=== PATIENT | male | born 1940 | race Caucasian/White ===

== ENCOUNTER 2016-09-17 19:13 | Emergency (ER) | payer MEDICARE ==
[2016-09-17 19:25] VITALS: BP 176/88
[2016-09-17] MEDS ORDERED: predniSONE TAB* 20 MG PO ONE (20:03)
--- NOTE | 2016-09-17 20:09 | UC ---
Knee Pain HPI - HPI Summary HPI Summary: 2 day history of acute pain and swelling with mild erythema of the left knee. He has a long history of gout, and stopped his Uloric about 4 months ago due to cost. Labs last week show persistent elevated uric acid. He does have a past hx of having gout in his knees. He has taken indomethacin 100mg already today. He has colchicine but it is very hard on his gut. He has a meeting pending with Dr. Grewal to discuss management. He is here hoping for pain medications, but he cannot take narcotics, which make him vomit. - History of Current Complaint Chief Complaint: UCLowerExtremity Stated Complaint: left knee complaint Time Seen by Provider: 09/17/16 19:42 Hx Obtained From: Patient Onset/Duration: Sudden Onset, Lasting Days - 2 Severity Initially: Moderate Severity Currently: Severe Pain Intensity: 8 Pain Scale Used: 0-10 Numeric Character: Aching, Stiffness Aggravating Factor(s): Movement, Weight Bearing Alleviating Factor(s): Rest Associated Signs And Symptoms: Positive: Swelling, Redness Able to Bear Weight: Yes - Risk Factors Septic Arthritis Risk Factor: Extremes of Age Gout Risk Factor: Age ^ 41 - Allergies/Home Medications Allergies/Adverse Reactions: Allergies Allergy/AdvReac Type Severity Reaction Status Date / Time Magnesium Salicylate Allergy Swelling Verified 09/17/16 19:25 [From Ms] Shellfish Allergy Allergy See Comment Verified 09/17/16 19:25 Home Medications: Home Medications Indomethacin CAP* [Indocin CAP*] 100 mg PO ONCE PRN 09/17/16 [History Confirmed 09/17/16] PMH/Surg Hx/FS Hx/Imm Hx Cardiovascular History Of: Reports: Cardiac Disorders - ID, Hypertension Respiratory History Of: Reports: Asthma - Surgical History Surgical History: Yes Surgery Procedure, Year, and Place: right knee - Family History Known Family History: Positive: Cardiac Disease - father of heart disease, Other - father had gout - Social History Occupation: Employed Full-time - [place] Lives: Alone Alcohol Use: Occasionally Substance Use Type: None Smoking Status (MU): Never Smoked Tobacco Review of Systems Constitutional: Negative Skin: Negative Eyes: Negative ENT: Negative Respiratory: Negative Cardiovascular: Negative Gastrointestinal: Negative Genitourinary: Negative Motor: Negative Neurovascular: Negative Musculoskeletal: Arthralgia Neurological: Negative Psychological: Negative All Other Systems Reviewed And Are Negative: Yes Physical Exam Triage Information Reviewed: Yes Appearance: Well-Appearing, Pain Distress - moderate to severe, Thin Vital Signs: Initial Vital Signs Temp 99.2 F 09/17/16 19:17 Pulse 85 09/17/16 19:17 Resp 14 09/17/16 19:17 BP 176/88 09/17/16 19:17 Pulse Ox 98 09/17/16 19:17 Vital Signs Reviewed: Yes ENT Exam: Normal Respiratory: Positive: Lungs clear, Normal breath sounds Cardiovascular: Positive: RRR, No Murmur Musculoskeletal: Positive: Strength Intact, ROM Limited @ - left knee, can flex to 45 degrees, pain beyond., Other: - left knee with warmth, erythema, swelling. Erythema extends over the surface of the knee. Neurological Exam: Normal Neurological: Positive: Alert, Muscle Tone Normal Psychological Exam: Normal Knee Pain Course/Dx - Course Course Of Treatment: prednisone to decrease inflammation. - Differential Dx/Diagnosis Differential Diagnosis/HQI/PQRI: Cellulitis, Gout Provider Diagnoses: acute gout Discharge - Discharge Plan Condition: Stable Disposition: HOME Patient Education Materials: Gout (ED) Additional Instructions: Follow up with Dr. Grewal early next week to re-check your blood pressure and discuss management of gout. If the prednisone is helpful, you could continue with the prednisone which you have at home, taking 40mg on 09/18 and 09/19, 30mg on 09/20 and 09/21, 20 mg on 09/22 and 09/23, 10 mg on 09/24 and 09/25, and then stop. You could use over the counter omeprazole 20mg twice daily, taking it 20 minutes before you eat. This would help to protect your stomach against the effects of the indomethacin.
== END 2016-09-17 20:42 | disposition home or self-care (01) ==
LOC: UCCORT 19:13
DX: M10.062 Idiopathic gout, left knee (principal); I21.3 ST elevation (STEMI) myocardial infarction of unspecified site; I10 Essential (primary) hypertension; J45.909 Unspecified asthma, uncomplicated
CPT/HCPCS: 99212; G0463; J7512

== ENCOUNTER 2017-09-22 18:29 | Emergency (ER) | payer MEDICARE ==
--- OUTSIDE RECORDS SUMMARY | 2017-09-22 18:50 | XMS REPORT ---
:1940 External Reference #:[id number] Author Organization 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 Payers Type Date Identification Numbers Payment Provider Subscriber Commercial Effective: Policy Number: BCBS Medicare Moreno Zavala 2012 [id number] Group Number: [id number] [address] [address] PayID: [id number] [place] [address] Problems Date Description Provider Status Onset: 03/12/2012 Coronary arteriosclerosis Vik Grewal DO Active Onset: 06/13/2011 Benign prostatic hypertrophy without Vik Grewal DO Active outflow obstruction Onset: 05/31/2010 Gout Vik Grewal DO Active Onset: 05/31/2010 Mixed hyperlipidemia Vik Grewal DO Active Onset: 04/21/2010 Benign essential hypertension Vik Grewal DO Active Onset: 08/22/2014 Pure hypercholesterolemia Vik Grewal DO Active Onset: 08/31/2015 Essential hypertension Vik Grewal DO Active Onset: 08/31/2015 Athscl heart disease of [place] coronary Vik Grewal DO Active artery w/o ang pctrs Family History Date Family Member(s) Problem(s) Comments Father CAD Father [place] Father MVA Age 52 Mother CVA Age 81 Social History Type Date Description Comments Marital Status Lives With Alone Occupation [employer] RIGHT-handed Cigarette Use Never Smoked Cigarettes ETOH Use Occasionally consumes alcohol Smoking Patient has never smoked Daily Caffeine Consumes on average 1 cup of coffee per day Allergies, Adverse Reactions, Alerts Date Description Reaction Status Severity Comments 10/05/2009 Shellfish-Derived Products active 10/05/2009 MSG active 09/04/2017 Joe Inhibitors active Moderate cough 09/18/2017 Rocephin active swelling 09/18/2017 Norvasc active tingling mouth & tongue Medications Medication Date Status Form Strength Qnty SIG Indications Ordering Provider Doxycycline 09/18 Hx Capsules 100mg 20cap 1 by mouth Leighton Hyclate s twice a MD Mahnaz - day 09/20 Probenecid 09/04 Active Tablets 500mg 60tab 1 po bid M10.9 Leighton s MD Mahnaz Colchicine 09/04 Active Capsules 0.6mg 2 caps by M10.9 Leighton mouth x 1 MD Mahnaz dose, then 1 by mouth 1 hour later. repeat as needed, but no more frequently than every 4 days Aspirin Low Dose 09/11 Active Chewtabs 81mg 1 po qd I25.10 Carmina DO Vik Pravastatin Active Tablets 20mg 1 by mouth E78.2 Brown, Sodium /0000 every day Crystal BEAULIEU Symbicort Active Aerosol 160-4.5mc inhale two J45.40 Unknown /0000 g/Act puffs by mouth twice a day rinse mouth after use Proair HFA Active Aerosol 108(90Bas inhale 2 J45.40 Unknown /0000 e) puffs by mcg/Act mouth 4 times a day for 10-14 days Mometasone Active Suspension 50mcg/Act 2 sprays J30.9 Unknown Furoate /0000 each nostril daily as needed Metoprolol Active Tablets ER 25mg 1 by mouth Unknown Succinate ER /0000 24HR every day Valsartan-Hydroch 09/18 Hx Tablets 160-12.5m 30tab 1 by mouth Leighton lorothiazide /2017 g s every day MD Mahnaz - 09/18 Uloric 09/18 Hx Tablets 40mg 1 po daily M10.9 Leighton MD Mahnaz - 09/18 Hydrochlorothiazi 09/04 Hx Tablets 25mg 30tab 1 by mouth I10 Huynh s every day MD Mahnaz - 09/18 R60.9 Cephalexin 09/04/2017 Hx Capsules 500mg 30caps 1 by mouth L03.115 Leighton, - three MD Mahnaz 09/18/2017 times a day x 10 days Hydrochlorothiazide 08/14/2017 Hx Tablets 12.5mg 30tabs 1 by mouth I10 Leighton, - every day MD Mahnaz 09/04/2017 Probenecid 09/19/2016 Hx Tablets 500mg 45tabs take 1 1/2 M10.9 Leighton, - tablet by MD Mahnaz 09/04/2017 mouth once daily Colcrys 07/10/2015 Hx Tablets 0.6mg 30tabs 1 PO tid X M77.12 Carmina, - 10 Days Vik 07/27/2015 DO Naproxen Sodium 06/15/2015 Hx Tablets 550mg 60tabs take one M22.41 Carmina, - tablet by Vik, 09/05/2016 mouth DO twice a day with food Indomethacin 05/12/2015 Hx Capsules 50mg 30caps take one M10.9 Digiovann - capsule by billy, 04/27/2017 mouth Antonieta, three HAND ASSEMBLER times a day with food as needed for pain Uloric 03/31/2015 Hx Tablets 40mg 90tabs Take One M10.9 Carmina, - Tablet By Vik, 09/19/2016 Mouth DO Every Day Augmentin 09/22/2014 Hx Tablets 500-12 20tabs 1 by mouth 681.11 Carmina, - 5mg twice a Vik 12/29/2014 day DO Flonase 04/14/2014 Hx Suspension 50mcg/ 1units 1 spray Digiovann - Act per a, 07/10/2014 nostril Antonieta, every day HAND ASSEMBLER regularly Flonase 04/14/2014 Hx Suspension 50mcg/ 1units 1 spray Digiovann - Act per a, 12/29/2014 nostril Antonieta, every day HAND ASSEMBLER regularly Viagra 06/13/2012 Hx Tablets 50mg 10tabs 1 po q d Carmina, - prn Vik 09/05/2016 DO Toprol XL Hx Tablets ER 25mg 45tabs 1 po qd I10 Kevin, - 24HR Crystal BEAULIEU 04/27/2017 I25.10 Crestor - Hx Tablets 5mg 30tabs 1 po qd Rodriguez, 08/25/2014 MD Lance Diovan HCT - Hx Tablets 160-12 90tabs 1 po qd Rafael Soriano 05/12/2015 .5 Symbicort - Hx Aerosol 160-4. 2 puffs by Unknown 05/12/2015 5mcg/A mouth bid. ct rinse mouth out after each use Ventolin HFA - Hx Aerosol 108(90 2 puffs by Unknown 05/12/2015 Base) mouth mcg/Ac every 4 t hours as needed Nasonex - Hx Suspension 50mcg/ 2 sprays Unknown 05/12/2015 Act each nostril every day Xyzal - Hx Tablets 5mg 1 by mouth Unknown 05/12/2015 every day Levocetirizine - Hx Tablets 5mg 1 PO Q D J30 Unknown Dihydrochloride 04/27/2017 .9 Valsartan-Hydrochlo - Hx Tablets 160-12 1 by mouth I10 Unknown rothiazide 08/14/2017 .5mg every day Medications Administered in Office Medication Date Status Form Strength Qnty SIG Indications Ordering Provider Depo Medrol 80 Administered Injection Carmina, MG 016 DO Vik Immunizations CPT Code Status Date Vaccine Reaction Lot # [id number] Given 09/05/2016 Prevnar 13 Pneumococal Im inj completed, Pt [id number] Conjugate Vaccine tolerated well 86580 Refused 07/08/2013 Pneumococcal 23 Immunization Adult Or Immunosuppressed Patient [id number] Refused 03/12/2012 Afluria Or Fluvirin Flu Vac DECLINES FLU VACCINE. Intramuscular Vital Signs Date Vital Result Comment 09/18/2017 Weight 128.00 lb Heart Rate 76 /min BP Systolic 130 mmHg BP Diastolic 72 mmHg Respiratory Rate 18 /min Height 61 inches 5'1" (09/04/17 BMI (Body Mass Index) 24.2 kg/m2 09/04/2017 Body Temperature 98.5 F Weight 134.00 lb Heart Rate 76 /min BP Systolic 120 mmHg BP Diastolic 60 mmHg Respiratory Rate 18 /min Height 61 inches 5'1" (09/04/17 BMI (Body Mass Index) 25.3 kg/m2 08/14/2017 Body Temperature 97.6 F Weight 132.00 lb Heart Rate 64 /min BP Systolic 130 mmHg BP Diastolic 70 mmHg Respiratory Rate 18 /min Height 61 inches 5'1" (09/05/16) O2 % BldC Oximetry 100 % BMI (Body Mass Index) 24.9 kg/m2 04/27/2017 Weight 131.00 lb Heart Rate 76 /min BP Systolic 102 mmHg BP Diastolic 70 mmHg Respiratory Rate 18 /min Height 61 inches 5'1" (09/05/16) BMI (Body Mass Index) 24.7 kg/m2 03/27/2017 Weight 132.00 lb Heart Rate 76 /min BP Systolic 102 mmHg BP Diastolic 60 mmHg Respiratory Rate 18 /min Height 61 inches 5'1" (09/05/16) BMI (Body Mass Index) 24.9 kg/m2 09/26/2016 Weight 133.00 lb Heart Rate 76 /min BP Systolic 110 mmHg BP Diastolic 74 mmHg Respiratory Rate 16 /min Height 61 inches 5'1" (09/05/16) BMI (Body Mass Index) 25.1 kg/m2 09/05/2016 Weight 131.50 lb Heart Rate 72 /min BP Systolic 130 mmHg BP Diastolic 80 mmHg BP Systolic Recheck 130 mmHg BP Diastolic Recheck 80 mmHg Respiratory Rate 18 /min Height 61 inches 5'1" (09/05/16) BMI (Body Mass Index) 24.8 kg/m2 05/02/2016 Body Temperature 97.8 F Weight 130.00 lb Heart Rate 72 /min BP Systolic 110 mmHg BP Diastolic 70 mmHg Respiratory Rate 17 /min Height 61.0 inches 5'1" 10/23/15 BMI (Body Mass Index) 24.6 kg/m2 10/23/2015 Weight 133.00 lb Heart Rate 78 /min BP Systolic 138 mmHg BP Diastolic 70 mmHg Respiratory Rate 18 /min 08/31/2015 Weight 130.50 lb Heart Rate 66 /min 68 Reg BP Systolic 110 mmHg BP Diastolic 62 mmHg BP Systolic Recheck 120 mmHg BP Diastolic Recheck 70 mmHg Respiratory Rate 18 /min Height 60.75 inches 5'0.75" BMI (Body Mass Index) 24.9 kg/m2 07/27/2015 Weight 136.00 lb Heart Rate 72 /min BP Systolic 130 mmHg BP Diastolic 80 mmHg Respiratory Rate 18 /min Height 61 inches 5'1" (06/27) BMI (Body Mass Index) 25.7 kg/m2 07/10/2015 Weight 136.38 lb Heart Rate 78 /min BP Systolic 132 mmHg BP Diastolic 86 mmHg Respiratory Rate 18 /min Height 61 inches 5'1" BMI (Body Mass Index) 25.8 kg/m2 06/15/2015 Weight 133.00 lb Heart Rate 66 /min BP Systolic 130 mmHg BP Diastolic 70 mmHg Respiratory Rate 18 /min Height 61 inches 5'1" BMI (Body Mass Index) 25.1 kg/m2 05/12/2015 Weight 134.00 lb Heart Rate 66 /min BP Systolic 130 mmHg BP Diastolic 70 mmHg Respiratory Rate 18 /min 03/31/2015 Weight 152.00 lb Heart Rate 66 /min BP Systolic 124 mmHg BP Diastolic 80 mmHg Respiratory Rate 18 /min Height 61 inches 5'1" BMI (Body Mass Index) 28.7 kg/m2 03/09/2015 Body Temperature 98.1 F Weight 128.00 lb Heart Rate 78 /min BP Systolic 140 mmHg BP Diastolic 80 mmHg Respiratory Rate 18 /min Height 61 inches 5'1" BMI (Body Mass Index) 24.2 kg/m2 09/22/2014 Weight 134.00 lb Heart Rate 72 /min BP Systolic 154 mmHg BP Diastolic 90 mmHg Respiratory Rate 18 /min Height 61 inches 5'1" BMI (Body Mass Index) 25.3 kg/m2 08/25/2014 Weight 137.31 lb Heart Rate 76 /min 72 Reg BP Systolic 136 mmHg BP Diastolic 78 mmHg BP Systolic Recheck 140 mmHg BP Diastolic Recheck 80 mmHg Respiratory Rate 18 /min Height 61 inches 5'1" BMI (Body Mass Index) 25.9 kg/m2 04/14/2014 Body Temperature 97.4 F Weight 130.00 lb Heart Rate 66 /min BP Systolic 158 mmHg BP Diastolic 88 mmHg Respiratory Rate 18 /min Height 61 inches 5'1" O2 % BldC Oximetry 98 % 01/06/2014 BP Systolic 124 mmHg BP Diastolic 80 mmHg 01/06/2014 Body Temperature 97.9 F Weight 132.00 lb Heart Rate 72 /min 72 Reg BP Systolic 130 mmHg BP Diastolic 82 mmHg Respiratory Rate 18 /min Height 61 inches 5'1" 12/09/2013 Weight 130.00 lb Heart Rate 72 /min BP Systolic 118 mmHg BP Diastolic 70 mmHg Respiratory Rate 18 /min Height 61 inches 5'1" O2 % BldC Oximetry 95 % Ra 07/08/2013 BP Systolic 132 mmHg BP Diastolic 80 mmHg 07/08/2013 Weight 129.00 lb Heart Rate 66 /min 68 Reg BP Systolic 132 mmHg BP Diastolic 80 mmHg Respiratory Rate 18 /min Height 61.25 inches 5'1.25" 12/06/2012 Weight 135.00 lb Heart Rate 80 /min BP Systolic 140 mmHg BP Diastolic 86 mmHg Respiratory Rate 18 /min Height 134 inches 11'2" 11/26/2012 Heart Rate 72 /min BP Systolic 120 mmHg BP Diastolic 80 mmHg Respiratory Rate 18 /min Height 134 inches 11'2" 10/29/2012 BP Systolic 132 mmHg BP Diastolic 80 mmHg 10/29/2012 Weight 133.00 lb Heart Rate 66 /min BP Systolic 132 mmHg BP Diastolic 80 mmHg Respiratory Rate 18 /min Height 61.25 inches 5'1.25" 05/15/2012 Body Temperature 97.5 F Weight 132.56 lb Heart Rate 92 /min BP Systolic 124 mmHg BP Diastolic 88 mmHg Respiratory Rate 16 /min 03/12/2012 BP Systolic 134 mmHg BP Diastolic 82 mmHg 03/12/2012 Weight 134.00 lb Heart Rate 86 /min 72 Reg BP Systolic 136 mmHg BP Diastolic 82 mmHg Respiratory Rate 24 /min O2 % BldC Oximetry 96 % Ra 09/12/2011 BP Systolic 130 mmHg BP Diastolic 90 mmHg 09/12/2011 Weight 133.00 lb Heart Rate 72 /min 72 Reg BP Systolic 130 mmHg BP Diastolic 90 mmHg Respiratory Rate 24 /min 06/13/2011 BP Systolic 140 mmHg BP Diastolic 98 mmHg 06/13/2011 Weight 135.00 lb Heart Rate 66 /min 72 Reg BP Systolic 132 mmHg BP Diastolic 86 mmHg Respiratory Rate 18 /min Height 61 inches 5'1" (Done On 09/27/10) 02/15/2011 BP Systolic 162 mmHg BP Diastolic 96 mmHg 02/15/2011 Body Temperature 97.1 F Weight 133.50 lb Heart Rate 60 /min BP Systolic 160 mmHg BP Diastolic 92 mmHg Respiratory Rate 17 /min Height 61 inches 5'1" (Done On 09/27/10) O2 % BldC Oximetry 98 % Ra 01/31/2011 BP Systolic 154 mmHg BP Diastolic 78 mmHg 01/31/2011 Body Temperature 99.8 F Weight 130.00 lb Heart Rate 87 /min BP Systolic 160 mmHg BP Diastolic 88 mmHg Respiratory Rate 18 /min Height 61 inches 5'1" (Done On 09/27/10) O2 % BldC Oximetry 99 % 11/05/2010 Body Temperature 97.4 F Weight 131.00 lb Heart Rate 72 /min BP Systolic 120 mmHg BP Diastolic 74 mmHg Respiratory Rate 18 /min Height 61 inches 5'1" (Done On 09/27/10) O2 % BldC Oximetry 98 % 10/08/2010 Body Temperature 97.6 F Weight 132.00 lb Heart Rate 84 /min BP Systolic 138 mmHg BP Diastolic 82 mmHg Respiratory Rate 18 /min 09/27/2010 BP Systolic 162 mmHg BP Diastolic 90 mmHg 09/27/2010 Body Temperature 97.3 F Weight 133.00 lb Heart Rate 74 /min BP Systolic 170 mmHg BP Diastolic 90 mmHg Respiratory Rate 18 /min Height 61 inches 5'1" O2 % BldC Oximetry 98 % Ra 09/01/2010 Body Temperature 97.6 F Weight 137.00 lb Heart Rate 88 /min BP Systolic 164 mmHg BP Diastolic 80 mmHg 05/31/2010 BP Systolic 122 mmHg BP Diastolic 68 mmHg 05/31/2010 Weight 130.00 lb Heart Rate 84 /min BP Systolic 130 mmHg BP Diastolic 72 mmHg Respiratory Rate 18 /min 04/21/2010 BP Systolic 160 mmHg BP Diastolic 86 mmHg 04/21/2010 Weight 131.00 lb Heart Rate 86 /min BP Systolic 158 mmHg BP Diastolic 84 mmHg Respiratory Rate 18 /min 02/26/2010 Weight 131.00 lb Heart Rate 78 /min BP Systolic 162 mmHg BP Diastolic 80 mmHg Respiratory Rate 24 /min 11/16/2009 Weight 127.00 lb Heart Rate 67 /min BP Systolic 170 mmHg BP Diastolic 90 mmHg Respiratory Rate 16 /min 10/05/2009 Weight 130.00 lb Heart Rate 72 /min BP Systolic 148 mmHg BP Diastolic 72 mmHg Respiratory Rate 24 /min Results Test Date Test Result H/L Range Note Laboratory test finding 09/10/2017 Vancomycin,Trough 4.7 ug/mL Low 15.0- 20.0 1, 2 CBS W/Automated Diff 09/10/2017 White Blood Count 13.7 K/uL High 3.4-10.5 1 Red Blood Count 4.81 M/uL 4.20-5.80 1 Hemoglobin 14.8 gm/dL 12.8-17.0 1 Hematocrit 42.5 % 38.0-48.0 1 Mean Cell Volume 88.4 fl 80.0-96.0 1 Mean Corpuscular HGB 30.8 pg 27.0-33.0 1 Mean Corpuscular HGB Conc 34.8 g/dL 31.7-36.0 1 Platelet Count 194 K/uL 155-360 1 Red Cell Distri Width SD 42.6 fl 36-51 1 Red Cell Distri Width %CV 13.5 % 11.6-15.8 1 Mean Platelet Volume 11.2 fL High 6.6-10.6 1 Neut% 74.5 % High 33.0-73.0 1 Lymph % 15.8 % Low 20.0-42.0 1 [place] % 9.6 % 0.0-10.0 1 Eo% 0.1 % 0.0-6.6 1 Bas% 0.0 % 0.0-1.1 1 Neut# 10.19 K/uL High 1.8-7.0 1 Lymph # 2.16 K/uL 1.0-4.0 1 [place] # 1.31 K/uL High 0.0-0.8 1 Eos # 0.02 K/uL 0.0-0.5 1 Baso # 0.00 K/uL 0.0-0.1 1 Basic Metabolic Panel 09/10/2017 Glucose 89 mg/dL 74-106 1 BUN 35 mg/dL High 7-18 1 Creatinine 1.3 mg/dL 0.6-1.3 1 Glom Filtration Rate, Estimate 57 mL/min >60 1 If >60 mL/min >60 1, 3 BUN/Creat 26.9 ratio 1 Sodium 141 mmol/L 136-145 1 Potassium 3.4 mmol/L Low 3.5-5.1 1 Chloride 106 mmol/L 98-107 1 Carbon Dioxide 25 mmol/L 21-32 1 Anion Gap 10 mEq/L 8-16 1 Calcium 8.8 mg/dL 8.5-10.1 1 Basic Metabolic Panel 09/09/2017 Glucose 124 mg/dL High 74-106 1 BUN 33 mg/dL High 7-18 1 Creatinine 1.5 mg/dL High 0.6-1.3 1 Glom Filtration Rate, Estimate 48 mL/min >60 1 If 59 mL/min >60 1, 4 BUN/Creat 22.0 ratio 1 Sodium 137 mmol/L 136-145 1 Potassium 3.6 mmol/L 3.5-5.1 1 Chloride 102 mmol/L 98-107 1 Carbon Dioxide 28 mmol/L 21-32 1 Anion Gap 7 mEq/L Low 8-16 1 Calcium 9.2 mg/dL 8.5-10.1 1 CBS W/Automated Diff 09/09/2017 White Blood Count 12.7 K/uL High 3.4-10.5 1 Red Blood Count 5.00 M/uL 4.20-5.80 1 Hemoglobin 15.5 gm/dL 12.8-17.0 1 Hematocrit 43.4 % 38.0-48.0 1 Mean Cell Volume 86.8 fl 80.0-96.0 1 Mean Corpuscular HGB 31.0 pg 27.0-33.0 1 Mean Corpuscular HGB Conc 35.7 g/dL 31.7-36.0 1 Platelet Count 207 K/uL 155-360 1 Red Cell Distri Width SD 41.4 fl 36-51 1 Red Cell Distri Width %CV 13.3 % 11.6-15.8 1 Mean Platelet Volume 11.3 fL High 6.6-10.6 1 Neut% 86.2 % High 33.0-73.0 1 Lymph % 9.0 % Low 20.0-42.0 1 [place] % 4.8 % 0.0-10.0 1 Eo% 0.0 % 0.0-6.6 1 Bas% 0.0 % 0.0-1.1 1 Neut# 10.90 K/uL High 1.8-7.0 1 Lymph # 1.14 K/uL 1.0-4.0 1 [place] # 0.61 K/uL 0.0-0.8 1 Eos # 0.00 K/uL 0.0-0.5 1 Baso # 0.00 K/uL 0.0-0.1 1 Slide Review 09/09/2017 Slide Review . 1, 5 Routine Culture W/ Gram 09/08/2017 Gram Stain NO ORGANISMS SEE <SEE 1, 6 Stain NOTE> Aerobic Culture NO GROWTH: FINAL <SEE NOTE> 1, 7 Comprehensive Metabolic Panel 09/05/2017 Glucose 95 mg/dL 74-106 8 BUN 21 mg/dL High 7-18 8 Creatinine 1.5 mg/dL High 0.6-1.3 8 Glom Filtration Rate, Estimate 48 mL/min >60 8 If 59 mL/min >60 8, 9 BUN/Creat 14.0 ratio 8 Sodium 140 mmol/L 136-145 8 Potassium 3.6 mmol/L 3.5-5.1 8 Chloride 106 mmol/L 98-107 8 Carbon Dioxide 29 mmol/L 21-32 8 Anion Gap 5 mEq/L Low 8-16 8 Calcium 9.4 mg/dL 8.5-10.1 8 Total Protein 7.8 g/dL 6.4-8.2 8 Albumin 3.5 g/dL 3.4-5.0 8 Globulin 4.3 g/dL 1.9-4.3 8 Alb/Glob 0.8 ratio 8 Bilirubin,Total 0.6 mg/dL 0.2-1.0 8 Sgot/Ast 16 U/L 15-37 8 SGPT/Alt 17 U/L 12-78 8 Alkaline Phosphatase 60 U/L 45-117 8 Laboratory test finding 09/05/2017 Uric Acid 4.8 mg/dL 3.5-7.2 8 CBC with Auto Diff-fcmg 09/05/2017 White Blood Count 8.3 K/uL 3.4-10.5 8 Red Blood Count 5.22 M/uL 4.20-5.80 8 Hemoglobin 16.1 gm/dL 12.8-17.0 8 Hematocrit 46.7 % 38.0-48.0 8 Mean Cell Volume 89.5 fl 80.0-96.0 8 Mean Corpuscular HGB 30.8 pg 27.0-33.0 8 Mean Corpuscular HGB Conc 34.5 g/dL 31.7-36.0 8 Platelet Count 157 K/uL 155-360 8 Red Cell Distri Width SD 44.7 fl 36-51 8 Red Cell Distri Width %CV 13.9 % 11.6-15.8 8 Mean Platelet Volume 11.3 fL High 6.6-10.6 8 Neut% 65.0 % 33.0-73.0 8 Lymph % 19.6 % Low 20.0-42.0 8 [place] % 12.9 % High 0.0-10.0 8 Eo% 2.1 % 0.0-6.6 8 Bas% 0.4 % 0.0-1.1 8 Neut# 5.39 K/uL 1.8-7.0 8 Lymph # 1.62 K/uL 1.0-4.0 8 [place] # 1.07 K/uL High 0.0-0.8 8 Eos # 0.17 K/uL 0.0-0.5 8 Baso # 0.03 K/uL 0.0-0.1 8 CBS W/Automated Diff 07/24/2017 White Blood Count 5.2 K/uL 3.4-10.5 10 Red Blood Count 4.76 M/uL 4.20-5.80 10 Hemoglobin 14.8 gm/dL 12.8-17.0 10 Hematocrit 42.6 % 38.0-48.0 10 Mean Cell Volume 89.5 fl 80.0-96.0 10 Mean Corpuscular HGB 31.1 pg 27.0-33.0 10 Mean Corpuscular HGB Conc 34.7 g/dL 31.7-36.0 10 Platelet Count 143 K/uL Low 155-360 10 Red Cell Distri Width SD 42.2 fl 36-51 10 Red Cell Distri Width %CV 13.3 % 11.6-15.8 10 Mean Platelet Volume 10.7 fL High 6.6-10.6 10 Neut% 50.3 % 33.0-73.0 10 Lymph % 32.7 % 20.0-42.0 10 [place] % 10.7 % High 0.0-10.0 10 Eo% 5.9 % 0.0-6.6 10 Bas% 0.4 % 0.0-1.1 10 Neut# 2.63 K/uL 1.8-7.0 10 Lymph # 1.71 K/uL 1.0-4.0 10 [place] # 0.56 K/uL 0.0-0.8 10 Eos # 0.31 K/uL 0.0-0.5 10 Baso # 0.02 K/uL 0.0-0.1 10 Comprehensive Metabolic Panel 07/24/2017 Glucose 96 mg/dL 74-106 10 BUN 32 mg/dL High 7-18 10 Creatinine 1.6 mg/dL High 0.6-1.3 10 Glom Filtration Rate, Estimate 45 mL/min >60 10 If 54 mL/min >60 10, 11 BUN/Creat 20.0 ratio 10 Sodium 144 mmol/L 136-145 10 Potassium 4.1 mmol/L 3.5-5.1 10 Chloride 111 mmol/L High 98-107 10 Carbon Dioxide 28 mmol/L 21-32 10 Anion Gap 5 mEq/L Low 8-16 10 Calcium 8.8 mg/dL 8.5-10.1 10 Total Protein 6.4 g/dL 6.4-8.2 10 Albumin 3.0 g/dL Low 3.4-5.0 10 Globulin 3.4 g/dL 1.9-4.3 10 Alb/Glob 0.9 ratio 10 Bilirubin,Total 0.3 mg/dL 0.2-1.0 10 Sgot/Ast 16 U/L 15-37 10 SGPT/Alt 22 U/L 12-78 10 Alkaline Phosphatase 58 U/L 45-117 10 Laboratory test finding 07/24/2017 Uric Acid 6.2 mg/dL 3.5-7.2 10 LDL Cholesterol Profile 07/24/2017 Cholesterol 192 mg/dL <200 10, 12 Triglycerides 138 mg/dL <150 10, 13 HDL Cholesterol 49 mg/dL >40 10, 14 LDL-Cholesterol 115 mg/dL < 100 10, 15 Laboratory test finding 04/27/2017 Uric Acid 9.5 mg/dL High 2.6-8.4 Basic (BMP) 04/27/2017 Sodium 142 mmol/L 135-146 16 Potassium 4.6 mmol/L 3.5-5.2 Chloride# 104 mmol/L 97-110 17 Carbon Dioxide 30 mmol/L 24-34 Glucose 85 mg/dL 70-105 Creatinine 1.4 mg/dL 0.5-1.4 Calcium 9.4 mg/dL 8.5-10.2 Non Teresa Egfr 48 Low >60 18 Teresa Egfr 58 Low >60 19 Anion Gap 8 mmol/L 7-16 20 BUN 35 mg/dL High 6-26 CBC With Auto Diff 04/27/2017 WBC 7.8 K/uL 4.1-11.0 RBC 5.26 M/uL 4.60-6.10 Hemoglobin 15.9 gm/dL 13.5-18.0 Hematocrit 47.5 % 41.0-53.0 MCV 90.3 fL 80.0-97.0 MCH 30.1 pg 27.0-32.0 MCHC 33.4 g/dL 32.0-36.0 RDW 13.6 % 11.5-14.5 PLT Count 170 K/ul 140-400 MPV 9.3 FL 7.1-10.7 Neutrophil 55.5 % 35.0-75.0 Lymphocyte 29.2 % 16.0-52.0 Monocyte 12.5 % High 2.0-10.0 Eosinophil 2.2 % 0.0-5.0 Basophil 0.6 % 0.0-4.0 Abs Neutrophils 4.3 K/uL 2.1-8.0 Abs Lymphocytes 2.3 K/uL 0.8-5.5 Abs Monocytes 1.0 K/uL 0.1-1.0 Abs Eosinophils 0.2 K/uL 0.0-0.5 Abs Basophils 0.1 K/uL 0.0-0.3 Laboratory test finding 04/27/2017 Esr 19 mm/hr High 0-15 CCP Antibody Igg Negative Negative Rheumatoid Factor <10.0 IU/mL 0.0-10.0 Laboratory test finding 09/05/2016 Uric Acid 10.1 mg/dL High 2.6-8.4 21 PSA 2.690 ng/mL 0.000-4.000 21, 22 CBC With Auto Diff 09/05/2016 WBC 6.0 K/uL 4.1-11.0 21 RBC 5.64 M/uL 4.60-6.10 21 Hemoglobin 17.0 gm/dL 13.5-18.0 21 Hematocrit 51.0 % 41.0-53.0 21 MCV 90.4 fL 80.0-97.0 21 MCH 30.2 pg 27.0-32.0 21 MCHC 33.4 g/dL 32.0-36.0 21 RDW 13.5 % 11.5-14.5 21 PLT Count 161 K/ul 140-400 21 Neutrophil 55.4 % 35.0-75.0 21 Lymphocyte 29.9 % 16.0-52.0 21 Monocyte 10.0 % 2.0-10.0 21 Eosinophil 3.2 % 0.0-5.0 21 Basophil 1.5 % 0.0-4.0 21 Abs Neutrophils 3.3 K/uL 2.1-8.0 21 Abs Lymphocytes 1.8 K/uL 0.8-5.5 21 Abs Monocytes 0.6 K/uL 0.1-1.0 21 Abs Eosinophils 0.2 K/uL 0.0-0.5 21 Abs Basophils 0.1 K/uL 0.0-0.3 21 Basic (BMP) 09/05/2016 Sodium 144 mmol/L 135-146 21, 23 Potassium 5.0 mmol/L 3.5-5.2 21 Chloride# 107 mmol/L 97-110 21, 24 Carbon Dioxide 31 mmol/L 24-34 21 Glucose 91 mg/dL 70-105 21 BUN 23 mg/dL 6-26 21 Creatinine 1.4 mg/dL 0.5-1.4 21 Calcium 9.7 mg/dL 8.5-10.2 21 Non Teresa Egfr 49 Low >60 21, 25 Teresa Egfr 60 Low >60 21, 26 Anion Gap 11 mmol/L 7-16 21, 27 Laboratory test finding 09/05/2016 TSH 0.59 uIU/mL 0.35-4.94 21 Vitamin B12 389 pg/mL 180-914 21 CBS W/Automated Diff 07/06/2016 White Blood Count 7.2 K/uL 3.4-10.5 28 Red Blood Count 5.51 M/uL 4.20-5.80 28 Hemoglobin 16.5 gm/dL 12.8-17.0 28 Hematocrit 49.1 % High 38.0-48.0 28 Mean Cell Volume 89.1 fl 80.0-96.0 28 Mean Corpuscular HGB 29.9 pg 27.0-33.0 28 Mean Corpuscular HGB Conc 33.6 g/dL 31.7-36.0 28 Platelet Count 157 K/uL 150-400 28 Red Cell Distri Width SD 43.0 fl 36-51 28 Red Cell Distri Width %CV 13.2 % 11.6-15.8 28 Mean Platelet Volume 10.8 fL High 6.6-10.6 28 Neut% 44.2 % 33.0-73.0 28 Lymph % 37.8 % 20.0-42.0 28 [place] % 13.4 % High 0.0-10.0 28 Eo% 4.2 % 0.0-5.0 28 Bas% 0.4 % 0.1-1.0 28 Neut# 3.16 K/uL 1.8-7.0 28 Lymph # 2.70 K/uL 1.0-4.0 28 [place] # 0.96 K/uL High 0.0-0.8 28 Eos # 0.30 K/uL 0.0-0.5 28 Baso # 0.03 K/uL Low 0.1-0.2 28 Comprehensive Metabolic Panel 07/06/2016 Glucose 84 mg/dL 74-106 28 BUN 31 mg/dL High 7-18 28 Creatinine 1.6 mg/dL High 0.6-1.3 28 Glom Filtration Rate, Estimate 45 mL/min >60 28 If 55 mL/min >60 28, 29 BUN/Creat 19.3 ratio 28 Sodium 144 mmol/L 136-145 28 Potassium 3.8 mmol/L 3.5-5.1 28 Chloride 109 mmol/L High 98-107 28 Carbon Dioxide 26 mmol/L 21-32 28 Anion Gap 9 mEq/L 8-16 28 Calcium 8.8 mg/dL 8.5-10.1 28 Total Protein 7.2 g/dL 6.4-8.2 28 Albumin 3.4 g/dL 3.4-5.0 28 Globulin 3.8 g/dL 1.9-4.3 28 Alb/Glob 0.9 ratio 28 Bilirubin,Total 0.3 mg/dL 0.2-1.0 28 Sgot/Ast 23 U/L 15-37 28 SGPT/Alt 38 U/L 12-78 28 Alkaline Phosphatase 57 U/L 45-117 28 Laboratory test finding 07/06/2016 CK 148 U/L 39-308 28 Troponin-I < 0.015 ng/mL 28, 30 Laboratory test finding 08/31/2015 PSA 2.220 ng/mL 0.000-4.000 31 CBC With Auto Diff 08/31/2015 WBC 9.0 K/uL 4.1-11.0 RBC 5.46 M/uL 4.60-6.10 Hemoglobin 16.4 gm/dL 13.5-18.0 Hematocrit 50.2 % 41.0-53.0 MCV 91.8 fL 80.0-97.0 MCH 30.0 pg 27.0-32.0 MCHC 32.6 g/dL 32.0-36.0 RDW 14.1 % 11.5-14.5 PLT Count 168 K/ul 140-400 Neutrophil 61.2 % 35.0-75.0 Lymphocyte 24.1 % 16.0-52.0 Monocyte 9.9 % 2.0-10.0 Eosinophil 3.3 % 0.0-5.0 Basophil 1.5 % 0.0-4.0 Abs Neutrophils 5.5 K/uL 2.1-8.0 Abs Lymphocytes 2.2 K/uL 0.8-5.5 Abmon 0.9 K/uL 0.1-1.0 Abs Eosinophils 0.3 K/uL 0.0-0.5 Abs Basophils 0.1 K/uL 0.0-0.3 Basic (BMP) 08/31/2015 Sodium 139 mmol/L 134-142 Potassium 4.1 mmol/L 3.5-5.2 Chloride 102 mmol/L 97-109 Carbon Dioxide 30 mmol/L 24-34 Glucose 82 mg/dL 70-105 BUN 33 mg/dL High 6-26 Creatinine 1.3 mg/dL 0.5-1.4 Calcium 9.6 mg/dL 8.5-10.2 Anion Gap 11 mmol/L 6-14 Non Teresa Egfr 53 Low >60 32 Teresa Egfr >60 >60 33 Lipid Treatment 08/31/2015 Cholesterol 244 mg/dL High 50-199 Triglycerides 235 mg/dL High 30-150 HDL 63 mg/dL 40-71 34 Chol/ HDL Ratio 3.9 ratio Low 4.0-6.7 VLDL 47 mg/dL High 2-29 LDL (Calc) 134 mg/dL High 20-70 35 Alt 36 U/L 3-42 Ast 26 U/L 8-42 Laboratory test finding 08/31/2015 Uric Acid 6.6 mg/dL 2.6-8.4 Laboratory test finding 05/11/2015 Uric Acid 5.2 mg/dL 2.6-8.4 36 Comprehensive Metabolic (CMP) 05/11/2015 Sodium 138 mmol/L 134-142 36 Potassium 4.9 mmol/L 3.5-5.2 36 Chloride 106 mmol/L 97-109 36 Carbon Dioxide 26 mmol/L 24-34 36 Glucose 88 mg/dL 70-105 36 BUN 28 mg/dL High 6-26 36 Creatinine 1.5 mg/dL High 0.5-1.4 36 Calcium 9.6 mg/dL 8.5-10.2 36 Total Protein 6.7 g/dL 6.0-8.0 36 Albumin 4.0 g/dL 3.6-4.9 36 Globulin 2.7 g/dL 2.0-3.5 36 A/G Ratio 1.5 Ratio 1.0-2.2 36 Total Bilirubin 0.4 mg/dL 0.1-1.3 36 Alkaline Phosphatase 42 U/L 24-140 36 Alt 22 U/L 3-42 36 Ast 16 U/L 8-42 36 Anion Gap 11 mmol/L 6-14 36 Teresa Egfr 55 Low >60 36, 37 Non Teresa Egfr 45 Low >60 36, 38 Laboratory test finding 08/25/2014 PSA 2.120 ng/mL 0.000-4.000 39 Basic (BMP) 08/25/2014 Sodium 135 mmol/L 134-142 Potassium 4.2 mmol/L 3.5-5.2 Chloride 103 mmol/L 97-109 Carbon Dioxide 25 mmol/L 24-34 Glucose 80 mg/dL 70-105 BUN 25 mg/dL 6-26 Creatinine 1.5 mg/dL 0.5-1.5 Calcium 9.1 mg/dL 8.5-10.2 Anion Gap 11 mmol/L 6-14 Non Teresa Egfr 47 Low >60 40 Teresa Egfr 57 Low >60 41 CBC With Auto Diff 08/25/2014 WBC 9.0 K/uL 4.1-11.0 RBC 5.32 M/uL 4.60-6.10 Hemoglobin 16.2 gm/dL 13.5-18.0 Hematocrit 48.1 % 41.0-53.0 MCV 90.4 fL 80.0-97.0 MCH 30.4 pg 27.0-32.0 MCHC 33.7 g/dL 32.0-36.0 RDW 13.4 % 11.5-14.5 PLT Count 141 K/ul 140-400 Neutrophil 69.8 % 35.0-75.0 Lymphocyte 18.3 % 16.0-52.0 Monocyte 9.7 % 2.0-10.0 Eosinophil 1.7 % 0.0-5.0 Basophil 0.5 % 0.0-4.0 Abs Neutrophils 6.3 K/uL 2.1-8.0 Abs Lymphocytes 1.6 K/uL 0.8-5.5 Abmon 0.9 K/uL 0.1-1.0 Abs Eosinophils 0.2 K/uL 0.0-0.5 Abs Basophils 0.0 K/uL 0.0-0.3 Lipid Treatment 08/25/2014 Cholesterol 225 mg/dL High 50-199 Triglycerides 232 mg/dL High 30-150 HDL 45 mg/dL 40-71 42 Chol/ HDL Ratio 5.0 ratio 4.0-6.7 VLDL 46 mg/dL High 2-29 LDL (Calc) 134 mg/dL High 20-70 43 Alt 21 U/L 3-42 Ast 18 U/L 8-42 Laboratory test finding 08/25/2014 Uric Acid 11.9 mg/dL High 2.6-8.4 Laboratory test finding 02/11/2014 Alb/Glob 1.2 ratio Albumin 3.5 g/dL 3.5-5.0 Alkaline Phosphatase 50 U/L 50-136 Anion Gap 10 mEq/L 8-16 BUN 28 mg/dL High 5-23 BUN/Creat 20.0 ratio Bilirubin,Total 0.3 mg/dL 0.2-1.2 Calcium 9.0 mg/dL 8.5-10.1 Carbon Dioxide 26 mEq/L 18-29 Chloride 109 mmol/L High 98-107 Creatinine 1.4 mg/dL 0.5-1.4 Globulin 2.9 g/dL 1.9-4.3 Glom Filtration Rate, Estimate 53 mL/min >60 Glucose 89 mg/dL 76-115 If >60 mL/min >60 44 Potassium 3.6 mmol/L 3.5-5.1 SGPT/Alt 27 U/L Low 30-65 Sgot/Ast 19 U/L 16-40 Sodium 141 mmol/L 136-145 Total Protein 6.4 g/dL 6.3-8.0 LDL Cholesterol Profile 02/11/2014 Cholesterol 175 mg/dL 120-200 HDL Cholesterol 47 mg/dL 29-83 LDL-Cholesterol 92 mg/dL 62-185 Triglycerides 178 mg/dL 16-231 Laboratory test finding 07/08/2013 % Baso. 1.2 % 0.0-2.0 % Eos. 2.4 % 0.0-4.0 % Lymph 28 % 20-44 % [place] 9.4 % 2.0-10.0 % [place] 59 % 50-70 A/G Ratio 1.8 ratio 1.6-2.2 Absolute Baso. 0.1 K/ul 0.0-0.3 Absolute Eos. 0.2 K/ul 0.0-0.5 Absolute Lymph. 2.3 K/ul 0.8-4.8 Absolute [place]. 0.8 K/ul 0.1-1.0 Absolute [place]. 4.81 K/ul 2.05-7.63 Albumin 4.2 g/dL 3.5-5.0 Alk. Phos. 45.0 U/L 30.0-126.0 Alt 21.0 U/L 21.0-72.0 Anion Gap 10.0 mmol/L 10.0-20.0 Ast 19.0 U/L 17.0-59.0 BUN 33.0 mg/dL High 9.0-21.0 BUN/Creat Ratio 23.6 ratio High 12.0-20.0 Calcium 9.7 mg/dL 8.7-10.5 Chloride 105.0 mmol/L 98.0-107.0 Co2 24.0 mmol/L 22.0-30.0 Creatinine-Serum 1.4 mg/dL 0.8-1.5 Globulin 2.4 g/dL Low 2.7-4.3 Glucose 94.0 mg/dL 75.0-110.0 HCT 49.4 % 37.0-51.0 HGB 16.8 Gm/dl High 12.0-16.0 MCH 31.6 pg 26.0-32.0 MCHC 34.1 g/dL 31.0-36.0 MCV 92.9 Fl 80.0-97.0 MPV 8.9 fL 6.0-10.0 PLT 166 K/ul 140-440 PSA 3.5 ng/mL 0.0-4.0 Potasium 4.0 mmol/L 3.6-5.0 RBC 5.3 M/ul 4.2-6.3 RDW 12.4 % 11.5-14.5 Sodium 139.0 mmil/L 137.0-145.0 Total Bilirubin 0.6 mg/dL 0.2-1.3 Total Protein 6.6 g/dL 6.3-8.2 Uric Acid 6.2 mg/dL 2.1-7.4 45 WBC 8.2 K/ul 4.1-10.9 eGFR 50.0 mi/minper1.73 46 Lipid Panel 07/08/2013 Chol/HDL Ratio 4.0 ratio Cholesterol 234.0 mg/dL High 50.0-199.0 HDL 58.0 mg/dL 40.0-67.0 LDL, Calculated 142.4 mg/dL High 20.0-70.0 Triglycerides 168.0 mg/dL High 30.0-150.0 vLDL 33.6 ng/dL Laboratory test finding 10/29/2012 Uric Acid 7.2 mg/dL 2.1-7.4 Alt 37.0 U/L 21.0-72.0 Ast 28.0 U/L 17.0-59.0 BUN 26.0 mg/dL High 9.0-21.0 BUN/Creat Ratio 20.0 ratio 12.0-20.0 Calcium 9.6 mg/dL 8.7-10.5 Chloride 106.0 mmol/L 98.0-107.0 Co2 23.0 mmol/L 22.0-30.0 Creatinine-Serum 1.3 mg/dL 0.8-1.5 Glucose 94.0 mg/dL 75.0-110.0 PSA 1.7 ng/mL 0.0-4.0 Potasium 4.2 mmol/L 3.6-5.0 Sodium 141.0 mmil/L 137.0-145.0 TSH 0.87 uIU/ml 0.50-6.00 Vitamin B12 457.0 pg/mL 200.0-900.0 eGFR 58.0 Lipid Panel 10/29/2012 Chol/HDL Ratio 3.3 ratio Cholesterol 163.0 mg/dL 50.0-199.0 HDL 49.0 mg/dL 40.0-67.0 LDL, Calculated 72.4 mg/dL High 20.0-70.0 Triglycerides 208.0 mg/dL High 30.0-150.0 vLDL 41.6 ng/dL Laboratory test finding 10/29/2012 Alt 37.0 U/L 21.0-72.0 Ast 28.0 U/L 17.0-59.0 BUN 26.0 mg/dL High 9.0-21.0 BUN/Creat Ratio 20.0 ratio 12.0-20.0 Calcium 9.6 mg/dL 8.7-10.5 Chloride 106.0 mmol/L 98.0-107.0 Co2 23.0 mmol/L 22.0-30.0 Creatinine-Serum 1.3 mg/dL 0.8-1.5 Glucose 94.0 mg/dL 75.0-110.0 PSA 1.7 ng/mL 0.0-4.0 Potasium 4.2 mmol/L 3.6-5.0 Sodium 141.0 mmil/L 137.0-145.0 TSH 0.87 uIU/ml 0.50-6.00 Vitamin B12 457.0 pg/mL 200.0-900.0 eGFR 58.0 Lipid Panel 10/29/2012 Chol/HDL Ratio 3.3 ratio Cholesterol 163.0 mg/dL 50.0-199.0 HDL 49.0 mg/dL 40.0-67.0 LDL, Calculated 72.4 mg/dL High 20.0-70.0 Triglycerides 208.0 mg/dL High 30.0-150.0 vLDL 41.6 ng/dL Laboratory test finding 10/29/2012 Alt 37.0 U/L 21.0-72.0 Ast 28.0 U/L 17.0-59.0 BUN 26.0 mg/dL High 9.0-21.0 BUN/Creat Ratio 20.0 ratio 12.0-20.0 Calcium 9.6 mg/dL 8.7-10.5 Chloride 106.0 mmol/L 98.0-107.0 Co2 23.0 mmol/L 22.0-30.0 Creatinine-Serum 1.3 mg/dL 0.8-1.5 Glucose 94.0 mg/dL 75.0-110.0 PSA 1.7 ng/mL 0.0-4.0 Potasium 4.2 mmol/L 3.6-5.0 Sodium 141.0 mmil/L 137.0-145.0 TSH 0.87 uIU/ml 0.50-6.00 Vitamin B12 457.0 pg/mL 200.0-900.0 eGFR 58.0 Lipid Panel 10/29/2012 Chol/HDL Ratio 3.3 ratio Cholesterol 163.0 mg/dL 50.0-199.0 HDL 49.0 mg/dL 40.0-67.0 LDL, Calculated 72.4 mg/dL High 20.0-70.0 Triglycerides 208.0 mg/dL High 30.0-150.0 vLDL 41.6 ng/dL Laboratory test finding 09/06/2012 [id number],Serum 90 mg/dL 90- 200 Immunoglobulin E,Total 2410 IU/mL High 0-100 47 Laboratory test finding 03/12/2012 Absolute Basophils 0.060 K/ul 0.0-0.3 48 Absolute Eosinophils 0.200 K/ul 0.0-0.5 48 Absolute Lymphocytes 1.92 K/ul 0.8-4.8 48 Absolute Monocytes 0.723 K/ul 0.1-1.0 48 Absolute Neutrophils 4.70 K/ul 2.05-7.63 48 Alt 35 U/L 21-72 48 Anion Gap 14 mmol/L 10-20 48 Ast 27 U/L 17-59 48 BUN 22 mg/dL High 9-21 48 BUN/CR Ratio 17.5 Ratio 12-20 48 Basophil 0.8 % 0-2 48 Calcium 9.5 mg/dL 8.7-10.5 48 Carbon Dioxide 25 mmol/L 22-30 48 Chloride 106 mmol/L 98-107 48 Creatinine, Serum 1.3 mg/dL 0.8-1.5 48 Eosinophil 2.6 % 0-4 48 Glucose 95 mg/dL 75-110 48 Hematocrit 50.7 % 37.0-51.0 48 Hemoglobin 16.8 GM/dl High 12.0-16.0 48 Lymphocytes 25.3 % 20-44 48 MCH 30.5 pg 26.0-32.0 48 MCHC 33.1 g/dL 31.0-36.0 48 MCV 92 FL 80-97 48 Monocytes 9.5 % 2-10.0 48 Neutrophils 61.8 % 50-70 48 Platelet Count 149 K/ul 140-440 48 Potassium 4.3 mmol/L 3.6-5.0 48 RBC 5.50 M/ul 4.2-6.3 48 RDW 12.3 % 11.5-14.5 48 Sodium 140 mmol/L 137-145 48 WBC 7.6 K/ul 4.1-10.9 48 Lipid Panel 03/12/2012 Chol/HDL Ratio 2.5 48, 49 Cholesterol 165 mg/dL 50-199 48 HDL Cholesterol 65 mg/dL 40-67 48 LDL 48 mg/dL 20-70 48 Triglycerides 261 mg/dL High 30-150 48 VLDL Cholesterol 52 mg/dL 48 Laboratory test finding 03/12/2012 Uric Acid 6.1 mg/dL 2.1-7.4 48, 50 Vitamin D,25-Hydroxy 23.5 ng/mL Low 30.0-100.0 48, 51 Lipid Panel 09/12/2011 Chol/HDL Ratio 4.2 52 Cholesterol 268 mg/dL High 50-199 HDL Cholesterol 63 mg/dL 40-67 LDL 160 mg/dL High 20-129 Triglycerides 224 mg/dL High 30-150 VLDL Cholesterol 45 mg/dL Laboratory test finding 09/12/2011 Absolute Basophils 0.063 K/ul 0.0-0.3 Absolute Eosinophils 0.230 K/ul 0.0-0.5 Absolute Lymphocytes 2.54 K/ul 0.8-4.8 Absolute Monocytes 0.609 K/ul 0.1-1.0 Absolute Neutrophils 3.85 K/ul 2.05-7.63 Alt 34 U/L 21-72 Anion Gap 16 mmol/L 10-20 Ast 31 U/L 17-59 BUN 26 mg/dL High 9-21 BUN/CR Ratio 22.1 Ratio High 12-20 Basophil 0.9 % 0-2 CK-MB (Mass) 2.1 ng/mL 0.5-8.2 Calcium 9.6 mg/dL 8.7-10.5 Carbon Dioxide 28 mmol/L 22-30 Chloride 100 mmol/L 98-107 Creatinine, Serum 1.2 mg/dL 0.8-1.5 Eosinophil 3.2 % 0-4 Glucose 85 mg/dL 75-110 Hematocrit 52.9 % High 37.0-51.0 Hemoglobin 16.9 GM/dl High 12.0-16.0 Lymphocytes 34.9 % 20-44 MCH 29.1 pg 26.0-32.0 MCHC 31.9 g/dL 31.0-36.0 MCV 91 FL 80-97 Monocytes 8.4 % 2-10.0 Neutrophils 52.7 % 50-70 PSA 2.35 ng/mL 0.00-4.00 Platelet Count 197 K/ul 140-440 Potassium 4.0 mmol/L 3.6-5.0 RBC 5.80 M/ul 4.2-6.3 RDW 12.2 % 11.5-14.5 Sodium 140 mmol/L 137-145 Troponin-I 0.12 ng/mL 0.00-0.50 53 Uric Acid 8.3 mg/dL High 2.1-7.4 WBC 7.3 K/ul 4.1-10.9 Laboratory test finding 06/24/2011 Polyp Colon And/Or Rectum See Note 54 Laboratory test finding 06/13/2011 Uric Acid 6.5 mg/dL 2.1-7.4 Lipid Panel 06/13/2011 Chol/HDL Ratio 3.8 55 Cholesterol 250 mg/dL High 50-199 HDL Cholesterol 65 mg/dL 40-67 LDL 146 mg/dL High 20-129 Triglycerides 194 mg/dL High 30-150 VLDL Cholesterol 39 mg/dL Laboratory test finding 06/13/2011 Absolute Basophils 0.080 K/ul 0.0-0.3 Absolute Eosinophils 0.309 K/ul 0.0-0.5 Absolute Lymphocytes 2.24 K/ul 0.8-4.8 Absolute Monocytes 0.598 K/ul 0.1-1.0 Absolute Neutrophils 3.68 K/ul 2.05-7.63 Alt 36 U/L 21-72 Anion Gap 17 mmol/L 10-20 Ast 28 U/L 17-59 BUN 18 mg/dL 9-21 BUN/CR Ratio 15.8 Ratio 12-20 Basophil 1.2 % 0-2 Calcium 9.4 mg/dL 8.7-10.5 Carbon Dioxide 24 mmol/L 22-30 Chloride 103 mmol/L 98-107 Creatinine, Serum 1.2 mg/dL 0.8-1.5 Eosinophil 4.5 % High 0-4 Glucose 88 mg/dL 75-110 Hematocrit 49.0 % 37.0-51.0 Hemoglobin 16.4 GM/dl High 12.0-16.0 Lymphocytes 32.4 % 20-44 MCH 30.0 pg 26.0-32.0 MCHC 33.5 g/dL 31.0-36.0 MCV 90 FL 80-97 Monocytes 8.7 % 2-10.0 Neutrophils 53.3 % 50-70 Platelet Count 183 K/ul 140-440 Potassium 4.5 mmol/L 3.6-5.0 RBC 5.47 M/ul 4.2-6.3 RDW 12.1 % 11.5-14.5 Sodium 139 mmol/L 137-145 WBC 6.9 K/ul 4.1-10.9 Laboratory test finding 11/05/2010 Absolute Basophils 0.070 K/ul 0.0-0.3 56 Absolute Eosinophils 0.621 K/ul High 0.0-0.5 56 Absolute Lymphocytes 1.98 K/ul 0.8-4.8 56 Absolute Monocytes 0.549 K/ul 0.1-1.0 56 Absolute Neutrophils 2.87 K/ul 2.05-7.63 56 Alt 39 U/L 21-72 56 Anion Gap 13 mmol/L 10-20 56 Ast 28 U/L 17-59 56 BUN 22 mg/dL High 9-21 56 BUN/CR Ratio 20.4 Ratio High 12-20 56 Basophil 1.1 % 0-2 56 Calcium 8.9 mg/dL 8.7-10.5 56 Carbon Dioxide 28 mmol/L 22-30 56 Chloride 106 mmol/L 98-107 56 Creatinine, Serum 1.1 mg/dL 0.8-1.5 56 Eosinophil 10.2 % High 0-4 56 Glucose 89 mg/dL 75-110 56 Hematocrit 50.8 % 37.0-51.0 56 Hemoglobin 16.4 GM/dl High 12.0-16.0 56 Lymphocytes 32.5 % 20-44 56 MCH 29.8 pg 26.0-32.0 56 MCHC 32.3 g/dL 31.0-36.0 56 MCV 92 FL 80-97 56 Monocytes 9.0 % 2-10.0 56 Neutrophils 47.1 % Low 50-70 56 PSA 1.94 ng/mL 0.00-4.00 56 Platelet Count 187 K/ul 140-440 56 Potassium 4.8 mmol/L 3.6-5.0 56 RBC 5.50 M/ul 4.2-6.3 56 RDW 12.6 % 11.5-14.5 56 Sodium 142 mmol/L 137-145 56 TSH 0.884 uIU/ml 0.50-6.00 56 Uric Acid 6.8 mg/dL 2.1-7.4 56, 57 Vitamin D,25-Hydroxy 25.5 ng/mL Low 32.0-100.0 56, 58 WBC 6.1 K/ul 4.1-10.9 56 Lipid Panel 11/05/2010 Chol/HDL Ratio 3.4 56, 59 Cholesterol 223 mg/dL High 50-199 56 HDL Cholesterol 64 mg/dL 40-67 56 LDL 143 mg/dL High 20-129 56 Triglycerides 80 mg/dL 30-150 56 VLDL Cholesterol 16 mg/dL 56 Testosterone,Free/Weakly 11/05/2010 Testosterone,%Free/Weakly 13.2 % 9.0- 46.0 56 Bound BND Testosterone,Free+Weakly Bound 45.1 ng/dL 40.0-250.0 56, 60 Testosterone,Serum 342 ng/dL 193-740 56 Laboratory test finding 05/31/2010 Alt 32 U/L 21-72 56 Anion Gap 8 mmol/L Low 10-20 56 Ast 25 U/L 17-59 56 BUN 23 mg/dL High 9-21 56 BUN/CR Ratio 19.6 Ratio 12-20 56 Calcium 9.7 mg/dL 8.7-10.5 56 Carbon Dioxide 29 mmol/L 22-30 56 Chloride 105 mmol/L 98-107 56 Creatinine, Serum 1.2 mg/dL 0.8-1.5 56 Glucose 80 mg/dL 75-110 56 Potassium 4.1 mmol/L 3.6-5.0 56 Sodium 138 mmol/L 137-145 56 Uric Acid 6.6 mg/dL 2.1-7.4 56, 61 Lipid Panel 05/31/2010 Chol/HDL Ratio 3.1 56, 62 Cholesterol 205 mg/dL High 50-199 56 HDL Cholesterol 66 mg/dL 40-67 56 LDL 107 mg/dL 20-129 56 Triglycerides 159 mg/dL High 30-150 56 VLDL Cholesterol 32 mg/dL 56 Testosterone,Free/Weakly 05/31/2010 Testosterone,%Free/Weakly 16.0 % 9.0- 46.0 56 Bound BND Testosterone,Free+Weakly Bound 63.5 ng/dL 40.0-250.0 56, 63 Testosterone,Serum 397 ng/dL 193-740 56, 64 Laboratory test finding 02/26/2010 Free T4 0.91 ng/dL 0.71-1.85 65 Thyroid Stim Hormone 0.80 uIU/mL 0.49-4.67 66 Laboratory test finding 10/06/2009 Anion Gap 10 mEq/L 8-16 Anisocytosis 0-1+ Atypical Lymph% 3 % 0-7 BUN 17 mg/dL 5-23 BUN/Creat 15.4 Band% 2 % 0-8 CBS W/Automated Diff See Note 67 Calcium 8.6 mg/dL 8.5-10.1 Carbon Dioxide 29 mEq/L 21-32 Chloride 105 mEq/L 98-107 Creatinine 1.1 mg/dL 0.5-1.4 Eosinophil% 1 % 0-5 Glom Filtration Rate, Estimate >60 mL/min >60 Glucose 84 mg/dL 76-115 Hematocrit 46.4 % 38.0-48.0 Hemoglobin 15.8 gm/dL 12.8-17.0 If >60 mL/min >60 68 Lymph% 27 % 17-56 Mean Cell Volume 90.6 fl 80.0-96.0 Mean Corpuscular HGB 30.9 pg 27.0-33.0 Mean Corpuscular HGB Conc 34.1 g/dL 31.7-36.0 Mean Platelet Volume 11.0 fL High 6.6-10.6 Monocyte% 6 % 0-10 Neutrophils% 61 % 33-73 Platelet Count 173 K/uL 150-400 Platelet Estimate Normal Potassium 3.9 mEq/L 3.5-5.1 Prostate Specific Antigen 1.8 ng/mL 0-4.0 69 Red Blood Count 5.12 M/uL 4.20-5.80 Red Cell Distri Width %CV 13.8 % 11.6-15.8 SGPT/Alt 44 U/L 30-65 Sgot/Ast 27 U/L 16-40 Sodium 140 mEq/L 136-145 Total Cells Counted 100 #CELLS Uric Acid 6.8 mg/dL 2.1-7.4 Vitamin D,1,25 Dihydroxy See Note 70 Vitamin D,25-Hydroxy 22.8 ng/mL Low 32.0-100.0 71 White Blood Count 6.0 K/uL 3.4-10.5 LDL Cholesterol Profile 10/06/2009 Cholesterol 225 mg/dL High 120-200 HDL Cholesterol 58 mg/dL 40-96 LDL-Cholesterol 149 mg/dL High 62-129 Triglycerides 88 mg/dL 0-150 1 ACUTE ARTHRITIS R ANKLE 2 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 Patients with eGFR values >/=60 mL/min/1.73 m2 may also have CKD if evidence of persistent proteinuria is present. The original MDRD equation for estimated GFR is not valid for patients less than 18 years of age. Additional information may be found at [email or web address]. 4 Note: Persistent reduction for 3 months or more in an eGFR <60 mL/min/1.73 m2 defines CKD. Patients with eGFR values >/=60 mL/min/1.73 m2 may also have CKD if evidence of persistent proteinuria is present. The original MDRD equation for estimated GFR is not valid for patients less than 18 years of age. Additional information may be found at [email or web address]. 5 Instrument flagged sample for slide review. Less than 10% Bands seen, no other immature WBC's seen. RBC morphology essentially normal. Platelet estimate=NORMAL, LARGE PLATELETS NOTED 6 NO ORGANISMS SEEN 7 NO GROWTH: FINAL REPORT 8 M10.9,LO3.115,R60.9 9 Note: Persistent reduction for 3 months or more in an eGFR <60 mL/min/1.73 m2 defines CKD. Patients with eGFR values >/=60 mL/min/1.73 m2 may also have CKD if evidence of persistent proteinuria is present. The original MDRD equation for estimated GFR is not valid for patients less than 18 years of age. Additional information may be found at [email or web address]. 10 I25.10 E78.2 M10.00 11 Note: Persistent reduction for 3 months or more in an eGFR <60 mL/min/1.73 m2 defines CKD. Patients with eGFR values >/=60 mL/min/1.73 m2 may also have CKD if evidence of persistent proteinuria is present. The original MDRD equation for estimated GFR is not valid for patients less than 18 years of age. Additional information may be found at [email or web address]. 12 Reference Guidelines*: Desirable: ........... < 200 mg/dL Borderline High: ..... 200-239 mg/dL High: ................ >=240 mg/dL * The National Cholesterol Education Program (NCEP) 13 Reference Guidelines*: Normal: ............. < 150 mg/dL Borderline High: .... 150-199 mg/dL High: ............... 200-499 mg/dL Very High: .......... > 500 mg/dL * Source: National Cholesterol Education Program (NCEP) 14 Reference Guidelines*: Low HDL: ..... < 40 mg/dL Normal: ..... 40-60 mg/dL Desirable: ... > 60 mg/dL *The National Cholesterol Education Program(NCEP) 15 Reference Guidelines*: Optimal:........... <100 mg/dL Near Optimal....... 100-129 mg/dL Borderline High.... 130-159 mg/dL High............... 160-189 mg/dL Very High.......... >=190 mg/dL * Source: National Cholesterol Education Program (NCEP) 16 Updated reference range on new analyzer 17 Updated reference range on new analyzer 18 Concerning GFR Guidelines: Normal function or mild renal disease, if clinically at risk: >/=60 mL/min Moderately decreased: 30-59 Severely decreased: 15-29 Renal failure: <15 Glomerular Filtration Rate (GFR) is estimated based on the MDRD equation, which assumes a steady state for creatinine as recommended by the National Kidney Disease Education Program in conjunction with the National Institutes of Health and the National Kidney Foundation. Clinical conditions in which it may be necessary to measure GFR by using clearance methods include extremes of age and body size, severe malnutrition or obesity, diseases of skeletal muscle, paraplegia or quadriplegia, vegetarian diet, rapidly changing kidney function, and calculation of the dose of potentially toxic drugs that are excreted by the kidneys. 19 Concerning GFR Guidelines for Americans: Normal function or mild renal disease, if clinically at risk: >/=60 mL/min Moderately decreased: 30-59 Severely decreased: 15-29 Renal failure: <15 20 Updated reference range on new analyzer 21 Fastin hours 22 Beginning 08/07/06 PSA values assayed at [facility] uses chemiluminescence methodology manufactured by [employer] for use on the DXI analyzer. Values obtained with different assay methods or kits can not be used interchangeably. Serum PSA measurement is not an absolute test for malignancy. The PSA value should be used in conjunction with information available from clinical evaluation and other diagnostic procedures. 23 Updated reference range on new analyzer 24 Updated reference range on new analyzer 25 Concerning GFR Guidelines: Normal function or mild renal disease, if clinically at risk: >/=60 mL/min Moderately decreased: 30-59 Severely decreased: 15-29 Renal failure: <15 Glomerular Filtration Rate (GFR) is estimated based on the MDRD equation, which assumes a steady state for creatinine as recommended by the National Kidney Disease Education Program in conjunction with the National Institutes of Health and the National Kidney Foundation. Clinical conditions in which it may be necessary to measure GFR by using clearance methods include extremes of age and body size, severe malnutrition or obesity, diseases of skeletal muscle, paraplegia or quadriplegia, vegetarian diet, rapidly changing kidney function, and calculation of the dose of potentially toxic drugs that are excreted by the kidneys. 26 Concerning GFR Guidelines for Americans: Normal function or mild renal disease, if clinically at risk: >/=60 mL/min Moderately decreased: 30-59 Severely decreased: 15-29 Renal failure: <15 27 Updated reference range on new analyzer 28 ? HEART ATTACK 29 Note: Persistent reduction for 3 months or more in an eGFR <60 mL/min/1.73 m2 defines CKD. Patients with eGFR values >/=60 mL/min/1.73 m2 may also have CKD if evidence of persistent proteinuria is present. The original MDRD equation for estimated GFR is not valid for patients less than 18 years of age. Additional information may be found at [email or web address]. 30 0.0 - 0.045 ng/mL: Normal 0.046 - 0.5 ng/mL: Suggestive 0.6 - 1.5 ng/mL: Consistent 31 Beginning 08/07/06 PSA values assayed at [facility] uses chemiluminescence methodology manufactured by [employer] for use on the DXI analyzer. Values obtained with different assay methods or kits can not be used interchangeably. Serum PSA measurement is not an absolute test for malignancy. The PSA value should be used in conjunction with information available from clinical evaluation and other diagnostic procedures. 32 Concerning GFR Guidelines: Normal function or mild renal disease, if clinically at risk: >/=60 mL/min Moderately decreased: 30-59 Severely decreased: 15-29 Renal failure: <15 Glomerular Filtration Rate (GFR) is estimated based on the MDRD equation, which assumes a steady state for creatinine as recommended by the National Kidney Disease Education Program in conjunction with the National Institutes of Health and the National Kidney Foundation. Clinical conditions in which it may be necessary to measure GFR by using clearance methods include extremes of age and body size, severe malnutrition or obesity, diseases of skeletal muscle, paraplegia or quadriplegia, vegetarian diet, rapidly changing kidney function, and calculation of the dose of potentially toxic drugs that are excreted by the kidneys. 33 Concerning GFR Guidelines for Americans: Normal function or mild renal disease, if clinically at risk: >/=60 mL/min Moderately decreased: 30-59 Severely decreased: 15-29 Renal failure: <15 34 Per NCEP ATP III Guidelines: Results lower than 40 mg/dL are suggestive of increased risk for coronary artery disease. Results > or=to 60 mg/dL are considered a negative risk factor. 35 Per NCEP ATP III Guidelines: Normal Population <130 Patients with medical conditions: CHD/DM Optimal: <100 Borderline high: 130-159 High: 160-189 Very high: >189 36 SCHEDULE IN 6 WEEKS 37 Concerning GFR Guidelines for Americans: Normal function or mild renal disease, if clinically at risk: >/=60 mL/min Moderately decreased: 30-59 Severely decreased: 15-29 Renal failure: <15 38 Concerning GFR Guidelines: Normal function or mild renal disease, if clinically at risk: >/=60 mL/min Moderately decreased: 30-59 Severely decreased: 15-29 Renal failure: <15 Glomerular Filtration Rate (GFR) is estimated based on the MDRD equation, which assumes a steady state for creatinine as recommended by the National Kidney Disease Education Program in conjunction with the National Institutes of Health and the National Kidney Foundation. Clinical conditions in which it may be necessary to measure GFR by using clearance methods include extremes of age and body size, severe malnutrition or obesity, diseases of skeletal muscle, paraplegia or quadriplegia, vegetarian diet, rapidly changing kidney function, and calculation of the dose of potentially toxic drugs that are excreted by the kidneys. 39 Beginning 08/07/06 PSA values assayed at [facility] uses an EIA methodology manufactured by [employer] for use on the DXI analyzer. Values obtained with different assay methods or kits can not be used interchangeably. Serum PSA measurement is not an absolute test for malignancy. The PSA value should be used in conjunction with information available from clinical evaluation and other diagnostic procedures. 40 Concerning GFR Guidelines: Normal function or mild renal disease, if clinically at risk: >/=60 mL/min Moderately decreased: 30-59 Severely decreased: 15-29 Renal failure: <15 Glomerular Filtration Rate (GFR) is estimated based on the MDRD equation, which assumes a steady state for creatinine as recommended by the National Kidney Disease Education Program in conjunction with the National Institutes of Health and the National Kidney Foundation. Clinical conditions in which it may be necessary to measure GFR by using clearance methods include extremes of age and body size, severe malnutrition or obesity, diseases of skeletal muscle, paraplegia or quadriplegia, vegetarian diet, rapidly changing kidney function, and calculation of the dose of potentially toxic drugs that are excreted by the kidneys. 41 Concerning GFR Guidelines for Americans: Normal function or mild renal disease, if clinically at risk: >/=60 mL/min Moderately decreased: 30-59 Severely decreased: 15-29 Renal failure: <15 42 Per NCEP ATP III Guidelines: Results lower than 40 mg/dL are suggestive of increased risk for coronary artery disease. Results > or=to 60 mg/dL are considered a negative risk factor. 43 Per NCEP ATP III Guidelines: Normal Population <130 Patients with medical conditions: CHD/DM Optimal: <100 Borderline high: 130-159 High: 160-189 Very high: >189 44 Note: Persistent reduction for 3 months or more in an eGFR <60 mL/min/ 1.73 m2 defines CKD. Patients with eGFR values >/=60 mL/min/1.73 m2 may also have CKD if evidence of persistent proteinuria is present. The original MDRD equation for estimated GFR is not valid for patients less than 18 years of age. Additional information may be found at www.kdoqi.org. 45 FAXED PER REQUEST - @ 7147 07/08/13,(LAB.RAP) FAX COPY TO Marcos SORIANO 46 For -[place] patients multiply result by 1.180 47 Performed at: RN - [facility] [address] [id number] [employer]: Leah Gonzalez MD, Phone: [phone] RAFAEL Soriano Fax 49 Normal Range: Male: <4.98 Female: <4.45 50 FAX OT Glenna SORIANO @ [phone] FAXED URIC PER REQUEST - @ 0052 03/12/12,( AJ) 51 Vitamin D deficiency has been defined by the Wells of Medicine and an Endocrine Society practice guideline as a level of serum 25-OH vitamin D less than 20 ng/mL (1,2). The Endocrine Society went on to further define vitamin D insufficiency as a level between 21 and 29 ng/mL (2). 1. IOM (Wells of Medicine). 2010. Dietary reference intakes for calcium and D. [place]: The National Academies Press. 2. Yasmeen MF, [place] RUSSELL, Devika TAMAYO, et al. Evaluation, treatment, and prevention of vitamin D deficiency: an Endocrine Society clinical practice guideline. JCEM. 2010; 96(7):1911-30. Performed at: RN - [facility] [address] [id number] [employer]: Leah Gonzalez MD, Phone: [phone] 52 Normal Range: Male: <4.98 Female: <4.45 53 0 - 0.5 ng/mL: No evidence of myocardial injury 0.6 - 1.4 ng/mL: Mild elevation, suggesting possible myocardial injury > 1.4 ng/mL: Consistent with myocardial injury 54 OPERATION/PROCEDURE Colon. DIAGNOSIS: "CECUM, TRANSVERSE COLON \\E&E\\ RECTUM, POLYPECTOMIES": ADENOMAS, TUBULAR TYPE. WYS/alec 1122 GROSS "CECAL, TRANSVERSE \\E&E\\ RECTAL POLYPS". The specimen is received in an appropriately labeled container. This contains four rounded mehta colored pieces of soft tissue measuring up to 0.4 cm.; filtered and submitted in toto within a single cassette. WS/alec MICROSCOPIC Sections show colonic mucosa with tubular glands lined by columnar cells with elongated and hyperchromatic nuclei. PRE OPERATIVE DIAGNOSIS Screening colon REVIEW CODE CODE: I ----- IAIN Hutton MD 06/27/11 1235 ----- 55 Normal Range: Male: <4.98 Female: <4.45 56 FASTING 57 QUERY: @[facility] Pat ID: QUERY: @EMR Req #: 58 Recent studies consider the lower limit of 32.0 ng/mL to be a threshold for optimal health. Aguilar BW. J Nutr. 2005 Jul;135(2):317-22. Performed at: [address] [id number] [employer]: Genaro Bates MD, Phone: [phone] Normal Range: Male: <4.98 Female: <4.45 60 Performed at: [address] [id number] [employer]: Genaro Bates MD, Phone: [phone] Performed at: [address] [id number] [employer]: Iain Sloan MD, Phone: [phone] FASTING QUERY: @[facility] Pat ID: QUERY: @EMR Req #: 62 Normal Range: Male: <4.98 Female: <4.45 63 Performed at: [address] [id number] [employer]: Genaro Bates MD, Phone: [phone] Performed at: [address] [id number] [employer]: Iain Sloan MD, Phone: [phone] Please note reference interval change 65 FASTING QUERY: @EMR Pat ID: QUERY: @EMR Req #: 66 FASTING QUERY: @EMR Pat ID: QUERY: @EMR Req #: 67 10/06/09 LAB.KISHAN BENITEZ DIFF NEEDED 68 Note: Persistent reduction for 3 months or more in an eGFR <60 mL/min/ 1.73 m2 defines CKD. Patients with eGFR values >/=60 mL/min/1.73 m2 may also have CKD if evidence of persistent proteinuria is present. The original MDRD equation for estimated GFR is not valid for patients less than 18 years of age. Additional information may be found at www.kdoqi.org. 69 THIS ASSAY IS NOT INTENDED A CANCER SCREENING TEST. *Total_PSA methodology Axsym-MEIA, standardized to WHO 1st IS for PSA 96/670 The concentration of PSA in a given specimen, determined with assays from different manufacturers, can vary due to differences in assay methods and reagent specificity. Values obtained from different assay methods cannot be used interchangeably. 70 10/06/09 LAB.LJS SHOULD HAVE BEEN A VD25 71 Recent studies consider the lower limit of 32.0 ng/mL to be a threshold for optimal health. Aguilar BW. J Nutr. 2004;135(2):317-22. Performed at: RN - [facility] [address] [id number] [employer]: Genaro Bates MD Procedures Date CPT Code Description Status Comment 08/14/2017 93052 Measure Blood Oxygen Level Completed Single Determination 04/27/2017 56809 X-Ray Hand Three Views Completed 12/02/2016 Colonoscopy Completed Document: 06/24/11 - Colonoscopy Document: 06/24/11 - Colonoscopy & Biopsies Lab: 06/24/11 - Polyp Colon And/Or Rectum Document: 12/02/16 - Surgical Pathology Reports NEXT [id number] Inj Of Tendon (Single) Completed 05/12/2015 38114 X-Ray Foot Complete Completed 04/14/2014 89614 Measure Blood Oxygen Level Completed Single Determination 12/09/2013 24474 Measure Blood Oxygen Level Completed Single Determination 12/09/2013 03431 Spirometry /PFT W/O Completed Bronchodialator 09/12/2011 11505 Electrocardiogram Complete Completed 06/24/2011 88872 Colonoscopy Flexible Diagnostic Completed 06/24/2011 Colonoscopy Completed Document: 06/24/11 - Colonoscopy Lab Order: 06/24/11 - Lab NEXT 2017 02/15/2011 34017 Measure Blood Oxygen Level Completed Single Determination 11/05/2010 82282 Measure Blood Oxygen Level Completed Single Determination 11/05/2010 98654 Spirometry /PFT W/O Completed Bronchodialator 11/05/2010 77253 Electrocardiogram Complete Completed 09/27/2010 79993 Measure Blood Oxygen Level Completed Single Determination 10/05/2009 09976 Electrocardiogram Complete Completed Encounters Type Date Location Provider CPT E/M Dx Office Visit 09/04/2017 3:15p [facility] [place] [address] M10.9 L03.115 R60.9 Office Visit 08/14/2017 8:45a [facility] [place] [address] R05 I10 Office Visit 04/27/2017 10:00a [facility] [place] [address] M25.541 M10.9 Office Visit 03/27/2017 8:45a [facility] [place] [address] M77.02 Office Visit 09/26/2016 2:45p [facility] [place] [address] M10.9 Office Visit 09/05/2016 9:00a [facility] [place] Grewal DO G0439 Z00.00 I10 E78.2 I25.10 M10.9 Z68.24 Z23 Z86.010 R53.83 Z12.5 I20.9 Office Visit 05/02/2016 9:30a [facility] [place] [address] M10.9 Office Visit 10/23/2015 3:00p [facility] [place] [address] M10.9 Office Visit 08/31/2015 9:00a [facility] [place] Grewal DO G0439 Z00.00 Z12.5 I10 E78.2 M10.9 I25.10 K40.30 Office Visit 07/10/2015 11:00a [facility] [place] [address] M77.12 Office Visit 06/15/2015 9:30a [place] [address] M22.41 M76.51 Office Visit 05/12/2015 3:00p [facility] [place] [address] M10.9 M15.0 Office Visit 03/31/2015 2:30p [facility] [place] [address] M10.9 M15.0 Office Visit 03/09/2015 2:30p [facility] Antonieta Miguel, HAND ASSEMBLER [address] M67.441 Office Visit 09/22/2014 9:30a [facility] Vik Grewal [address] 681.11 Office Visit 08/25/2014 2:00p [facility] Vik Grewal DO G0439 V70.0 V76.44 401.1 272.2 274.9 414.00 Plan of Care Future Appointment(s):10/23/2017 1:45 pm - Mahnaz Manzanares MD at [facility]09/18/2017 - Mahnaz Manzanares MDL03.115 Cellulitis of RIGHT lower limbNew Labs:CBC With Auto DiffComments:reviewed hospital record - cellulitis is healing but he still has right foot pain. 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 please complete full course of antibioticsFollow up:1 month MEDICARE WELLNESS EXAM and routine follow-up - check labs 1 week icjxaH18.9 Gout, unspecifiedNew Medication: Uloric 40 mgComments:improving - it appears that he was switched from probenecid to uloric at his hospitalization - however, he is still taking probenecid. will continue that medication .will check uric acid level priorto next office [id number] Essential (primary) hypertensionNew Labs:CMP, Comp Metabolic-FcmgUric Acid-fcmgComments:his medication for hypertension is very confusing as valsartan had been stopped prior to hospitalization - he was started on amlodipine and this caused facial swelling so he stopped this and is now back on hydrochlorothiazide and metoprolol. will continue this for now. check labs in 3 weeks.N17.9 Acute kidney failure, unspecifiedComments:this was mild and a new problem - will check labs in 3 weeks. He just had bloodwork done at [facility] last week.
--- OUTSIDE RECORDS SUMMARY | 2017-09-22 18:51 | XMS REPORT ---
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 Payers Type Date Identification Numbers Payment Provider Subscriber Commercial Effective: Policy Number: BCBS Medicare Moreno Zavala 2012 [id number] Group Number: [id number] [address] [address] PayID: [id number] [place] [address] Problems Date Description Provider Status Onset: 03/12/2012 [...] Active 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 Family History Date Family Member(s) Problem(s) Comments Father CAD Father NE Father MVA Age 52 Mother CVA Age [...] active 09/04/2017 Joe Inhibitors active Moderate cough Medications Medication Date Status Form Strength Qnty SIG Indications Ordering Provider Hydrochlorothiazide Active Tablets 25mg 30tabs 1 by I10 Leighton, 2018 mouth MD Mahnaz every day R60.9 Probenecid 09/04/2017 Active Tablets 500mg 60tabs 1 po bid M10.9 Mahnaz Manzanares MD Cephalexin 09/04/2017 Active Capsules 500mg 30caps 1 by mouth L03.11 Leighton, three 5 MD Mahnaz times a day x 10 days Colchicine 09/04/2017 Active Capsules 0.6mg 2 caps by M10.9 Leighton mouth x 1 MD Mahnaz dose, then 1 by mouth 1 hour later. repeat as needed, but no more frequently than every 4 days Aspirin Low Dose 09/12/2011 Active Chewtabs 81mg 1 po qd I25.10 Vik Grewal, Pravastatin Sodium Active Tablets 20mg 1 by mouth E78.2 Brown, every day Crystal BEAULIEU Symbicort Active Aerosol 160-4. inhale two J45.40 Unknown 5mcg/A puffs by ct mouth twice a day rinse mouth after use Proair HFA Active Aerosol 108(90 inhale 2 J45.40 Unknown Base) puffs by mcg/Ac mouth 4 t times a day for 10-14 days Mometasone Furoate Active Suspension 50mcg/ 2 sprays J30.9 Unknown Act each nostril daily as needed Metoprolol Active Tablets ER 25mg 1 by mouth Unknown Succinate ER 24HR every day Hydrochlorothiazid 08/14/2017 Hx Tablets 12.5mg 30tabs 1 by mouth I10 Leighton, e - every day MD Mahnaz 09/04/2017 Probenecid 09/19/2016 Hx Tablets 500mg 45tabs take 1 1/2 M10.El Manzanares, - tablet by MD Mahnaz 09/04/2017 mouth once daily Colcrys 07/10/2015 Hx Tablets 0.6mg 30tabs 1 PO tid X M77.12 Carmina, - 10 Days Vik, 07/27/2015 DO Naproxen Sodium 06/15/2015 Hx Tablets 550mg 60tabs take one M22.41 Carmina, - tablet by Vik, 09/05/2016 mouth DO twice a day with food Indomethacin 05/12/2015 Hx Capsules 50mg 30caps take one M10.9 Digiovann - capsule by a, 04/27/2017 mouth Antonieta, three DRAWING TRACER times a day with food as needed for pain Uloric 03/31/2015 Hx Tablets 40mg 90tabs Take One M10.9 Carmina, - Tablet By Vik, 09/19/2016 Mouth DO Every Day Augmentin 09/22/2014 Hx Tablets 500-12 20tabs 1 by mouth 681.11 Carmina, - 5mg twice a Vik, 12/29/2014 day DO Flonase 04/14/2014 Hx Suspension 50mcg/ 1units 1 spray Digiovann - Act per a, 07/10/2014 nostril Antonieta, every day DRAWING TRACER regularly Flonase 04/14/2014 Hx Suspension 50mcg/ 1units 1 spray Digiovann - Act per a, 12/29/2014 nostril Antonieta, every day DRAWING TRACER regularly Viagra 06/13/2012 Hx Tablets 50mg 10tabs 1 po q d Carmina, - prn Vik, 09/05/2016 DO Toprol XL Hx Tablets ER [...] Code Status Date Vaccine Reaction Lot # [id number] Given 09/05/2016 Prevnar 13 Pneumococal Im inj completed, Pt [id number] Conjugate Vaccine tolerated well 53549 Refused 07/08/2013 Pneumococcal 23 Immunization Adult Or Immunosuppressed Patient 32076 Refused 03/12/2012 Afluria Or Fluvirin Flu Vac DECLINES FLU VACCINE. Intramuscular Vital Signs Date Vital Result Comment 09/04/2017 Body Temperature 98.5 F Weight 134.00 [...] Test Date Test Result H/L Range Note CBS W/Automated Diff 07/24/2017 White Blood Count 5.2 K/uL 3.4-10.5 1 Red Blood Count 4.76 M/uL 4.20-5.80 1 Hemoglobin 14.8 gm/dL 12.8-17.0 1 Hematocrit 42.6 % 38.0-48.0 1 Mean Cell Volume 89.5 fl 80.0-96.0 1 Mean Corpuscular HGB 31.1 pg 27.0-33.0 1 Mean Corpuscular HGB Conc 34.7 g/dL 31.7-36.0 1 Platelet Count 143 K/uL Low 155-360 1 Red Cell Distri Width SD 42.2 fl 36-51 1 Red Cell Distri Width %CV 13.3 % 11.6-15.8 1 Mean Platelet Volume 10.7 fL High 6.6-10.6 1 Neut% 50.3 % 33.0-73.0 1 Lymph % 32.7 % 20.0-42.0 1 Clare % 10.7 % High 0.0-10.0 1 Eo% 5.9 % 0.0-6.6 1 Bas% 0.4 % 0.0-1.1 1 Neut# 2.63 K/uL 1.8-7.0 1 Lymph # 1.71 K/uL 1.0-4.0 1 Clare # 0.56 K/uL 0.0-0.8 1 Eos # 0.31 K/uL 0.0-0.5 1 Baso # 0.02 K/uL 0.0-0.1 1 Comprehensive Metabolic Panel 07/24/2017 Glucose 96 mg/dL 74-106 1 BUN 32 mg/dL High 7-18 1 Creatinine 1.6 mg/dL High 0.6-1.3 1 Glom Filtration Rate, Estimate 45 mL/min >60 1 If 54 mL/min >60 1, 2 BUN/Creat 20.0 ratio 1 Sodium 144 mmol/L 136-145 1 Potassium 4.1 mmol/L 3.5-5.1 1 Chloride 111 mmol/L High 98-107 1 Carbon Dioxide 28 mmol/L 21-32 1 Anion Gap 5 mEq/L Low 8-16 1 Calcium 8.8 mg/dL 8.5-10.1 1 Total Protein 6.4 g/dL 6.4-8.2 1 Albumin 3.0 g/dL Low 3.4-5.0 1 Globulin 3.4 g/dL 1.9-4.3 1 Alb/Glob 0.9 ratio 1 Bilirubin,Total 0.3 mg/dL 0.2-1.0 1 Sgot/Ast 16 U/L 15-37 1 SGPT/Alt 22 U/L 12-78 1 Alkaline Phosphatase 58 U/L 45-117 1 Laboratory test finding 07/24/2017 Uric Acid 6.2 mg/dL 3.5-7.2 1 LDL Cholesterol Profile 07/24/2017 Cholesterol 192 mg/dL <200 1, 3 Triglycerides 138 mg/dL <150 1, 4 HDL Cholesterol 49 mg/dL >40 1, 5 LDL-Cholesterol 115 mg/dL < 100 1, 6 Laboratory test finding 04/27/2017 Uric Acid 9.5 mg/dL High 2.6-8.4 Basic (BMP) 04/27/2017 Sodium 142 mmol/L 135-146 7 Potassium 4.6 mmol/L 3.5-5.2 Chloride# 104 mmol/L 97-110 8 Carbon Dioxide 30 mmol/L 24-34 Glucose 85 mg/dL 70-105 Creatinine 1.4 mg/dL 0.5-1.4 Calcium 9.4 mg/dL 8.5-10.2 Non Teresa Egfr 48 Low >60 9 Teresa Egfr 58 Low >60 10 Anion Gap 8 mmol/L 7-16 11 BUN 35 mg/dL High 6-26 CBC With [...] 09/05/2016 Uric Acid 10.1 mg/dL High 2.6-8.4 12 PSA 2.690 ng/mL 0.000-4.000 12, 13 CBC With Auto Diff 09/05/2016 WBC 6.0 K/uL 4.1-11.0 12 RBC 5.64 M/uL 4.60-6.10 12 Hemoglobin 17.0 gm/dL 13.5-18.0 12 Hematocrit 51.0 % 41.0-53.0 12 MCV 90.4 fL 80.0-97.0 12 MCH 30.2 pg 27.0-32.0 12 MCHC 33.4 g/dL 32.0-36.0 12 RDW 13.5 % 11.5-14.5 12 PLT Count 161 K/ul 140-400 12 Neutrophil 55.4 % 35.0-75.0 12 Lymphocyte 29.9 % 16.0-52.0 12 Monocyte 10.0 % 2.0-10.0 12 Eosinophil 3.2 % 0.0-5.0 12 Basophil 1.5 % 0.0-4.0 12 Abs Neutrophils 3.3 K/uL 2.1-8.0 12 Abs Lymphocytes 1.8 K/uL 0.8-5.5 12 Abs Monocytes 0.6 K/uL 0.1-1.0 12 Abs Eosinophils 0.2 K/uL 0.0-0.5 12 Abs Basophils 0.1 K/uL 0.0-0.3 12 Basic (BMP) 09/05/2016 Sodium 144 mmol/L 135-146 12, 14 Potassium 5.0 mmol/L 3.5-5.2 12 Chloride# 107 mmol/L 97-110 12, 15 Carbon Dioxide 31 mmol/L 24-34 12 Glucose 91 mg/dL 70-105 12 BUN 23 mg/dL 6-26 12 Creatinine 1.4 mg/dL 0.5-1.4 12 Calcium 9.7 mg/dL 8.5-10.2 12 Non Teresa Egfr 49 Low >60 12, 16 Teresa Egfr 60 Low >60 12, 17 Anion Gap 11 mmol/L 7-16 12, 18 Laboratory test finding 09/05/2016 TSH 0.59 uIU/mL 0.35-4.94 12 Vitamin B12 389 pg/mL 180-914 12 CBS W/Automated Diff 07/06/2016 White Blood Count 7.2 K/uL 3.4-10.5 19 Red Blood Count 5.51 M/uL 4.20-5.80 19 Hemoglobin 16.5 gm/dL 12.8-17.0 19 Hematocrit 49.1 % High 38.0-48.0 19 Mean Cell Volume 89.1 fl 80.0-96.0 19 Mean Corpuscular HGB 29.9 pg 27.0-33.0 19 Mean Corpuscular HGB Conc 33.6 g/dL 31.7-36.0 19 Platelet Count 157 K/uL 150-400 19 Red Cell Distri Width SD 43.0 fl 36-51 19 Red Cell Distri Width %CV 13.2 % 11.6-15.8 19 Mean Platelet Volume 10.8 fL High 6.6-10.6 19 Neut% 44.2 % 33.0-73.0 19 Lymph % 37.8 % 20.0-42.0 19 Clare % 13.4 % High 0.0-10.0 19 Eo% 4.2 % 0.0-5.0 19 Bas% 0.4 % 0.1-1.0 19 Neut# 3.16 K/uL 1.8-7.0 19 Lymph # 2.70 K/uL 1.0-4.0 19 Clare # 0.96 K/uL High 0.0-0.8 19 Eos # 0.30 K/uL 0.0-0.5 19 Baso # 0.03 K/uL Low 0.1-0.2 19 Comprehensive Metabolic Panel 07/06/2016 Glucose 84 mg/dL 74-106 19 BUN 31 mg/dL High 7-18 19 Creatinine 1.6 mg/dL High 0.6-1.3 19 Glom Filtration Rate, Estimate 45 mL/min >60 19 If 55 mL/min >60 19, 20 BUN/Creat 19.3 ratio 19 Sodium 144 mmol/L 136-145 19 Potassium 3.8 mmol/L 3.5-5.1 19 Chloride 109 mmol/L High 98-107 19 Carbon Dioxide 26 mmol/L 21-32 19 Anion Gap 9 mEq/L 8-16 19 Calcium 8.8 mg/dL 8.5-10.1 19 Total Protein 7.2 g/dL 6.4-8.2 19 Albumin 3.4 g/dL 3.4-5.0 19 Globulin 3.8 g/dL 1.9-4.3 19 Alb/Glob 0.9 ratio 19 Bilirubin,Total 0.3 mg/dL 0.2-1.0 19 Sgot/Ast 23 U/L 15-37 19 SGPT/Alt 38 U/L 12-78 19 Alkaline Phosphatase 57 U/L 45-117 19 Laboratory test finding 07/06/2016 CK 148 U/L 39-308 19 Troponin-I < 0.015 ng/mL 19, 21 Laboratory test finding 08/31/2015 PSA 2.220 ng/mL 0.000-4.000 22 CBC With Auto Diff 08/31/2015 WBC 9.0 [...] 6-14 Non Teresa Egfr 53 Low >60 23 Teresa Egfr >60 >60 24 Lipid Treatment 08/31/2015 Cholesterol 244 mg/dL High 50-199 Triglycerides 235 mg/dL High 30-150 HDL 63 mg/dL 40-71 25 Chol/ HDL Ratio 3.9 ratio Low 4.0-6.7 VLDL 47 mg/dL High 2-29 LDL (Calc) 134 mg/dL High 20-70 26 Alt 36 U/L 3-42 Ast 26 U/L 8-42 Laboratory test finding 08/31/2015 Uric Acid 6.6 mg/dL 2.6-8.4 Laboratory test finding 05/11/2015 Uric Acid 5.2 mg/dL 2.6-8.4 27 Comprehensive Metabolic (CMP) 05/11/2015 Sodium 138 mmol/L 134-142 27 Potassium 4.9 mmol/L 3.5-5.2 27 Chloride 106 mmol/L 97-109 27 Carbon Dioxide 26 mmol/L 24-34 27 Glucose 88 mg/dL 70-105 27 BUN 28 mg/dL High 6-26 27 Creatinine 1.5 mg/dL High 0.5-1.4 27 Calcium 9.6 mg/dL 8.5-10.2 27 Total Protein 6.7 g/dL 6.0-8.0 27 Albumin 4.0 g/dL 3.6-4.9 27 Globulin 2.7 g/dL 2.0-3.5 27 A/G Ratio 1.5 Ratio 1.0-2.2 27 Total Bilirubin 0.4 mg/dL 0.1-1.3 27 Alkaline Phosphatase 42 U/L 24-140 27 Alt 22 U/L 3-42 27 Ast 16 U/L 8-42 27 Anion Gap 11 mmol/L 6-14 27 Teresa Egfr 55 Low >60 27, 28 Non Teresa Egfr 45 Low >60 27, 29 Laboratory test finding 08/25/2014 PSA 2.120 ng/mL 0.000-4.000 30 Basic (BMP) 08/25/2014 Sodium 135 mmol/L 134-142 Potassium 4.2 mmol/L 3.5-5.2 Chloride 103 mmol/L 97-109 Carbon Dioxide 25 mmol/L 24-34 Glucose 80 mg/dL 70-105 BUN 25 mg/dL 6- Creatinine 1.5 mg/dL 0.5-1.5 Calcium 9.1 mg/dL 8.5-10.2 Anion Gap 11 mmol/L 6-14 Non Teresa Egfr 47 Low >60 31 Teresa Egfr 57 Low >60 32 CBC With Auto Diff 08/25/2014 WBC 9.0 [...] mg/dL High 30-150 HDL 45 mg/dL 40-71 33 Chol/ HDL Ratio 5.0 ratio 4.0-6.7 VLDL 46 mg/dL High 2-29 LDL (Calc) 134 mg/dL High 20-70 34 Alt 21 U/L 3-42 Ast 18 U/L [...] 89 mg/dL 76-115 If >60 mL/min >60 35 Potassium 3.6 mmol/L 3.5-5.1 SGPT/Alt 27 U/L Low 30-65 Sgot/Ast 19 U/L 16-40 Sodium 141 mmol/L 136-145 Total Protein 6.4 g/dL 6.3-8.0 LDL Cholesterol Profile 02/11/2014 Cholesterol 175 mg/dL 120-200 HDL Cholesterol 47 mg/dL 29-83 LDL-Cholesterol 92 mg/dL 62-185 Triglycerides 178 mg/dL 16-231 Laboratory test finding 07/08/2013 % Baso. 1.2 % 0.0-2.0 % Eos. 2.4 % 0.0-4.0 % Lymph 28 % 20-44 % Clare 9.4 % 2.0-10.0 % Miguel Angel 59 % 50-70 A/G Ratio 1.8 ratio 1.6-2.2 Absolute Baso. 0.1 K/ul 0.0-0.3 Absolute Eos. 0.2 K/ul 0.0-0.5 Absolute Lymph. 2.3 K/ul 0.8-4.8 Absolute Clare. 0.8 K/ul 0.1-1.0 Absolute Miguel Angel. 4.81 [...] g/dL 6.3-8.2 Uric Acid 6.2 mg/dL 2.1-7.4 36 WBC 8.2 K/ul 4.1-10.9 eGFR 50.0 mi/minper1.73 37 Lipid Panel 07/08/2013 Chol/HDL Ratio 4.0 ratio [...] vLDL 41.6 ng/dL Laboratory test finding 09/06/2012 Obsbo-3-Kqidmtaigfe,Serum 90 mg/dL 90- 200 Immunoglobulin E,Total 2410 IU/mL High 0-100 38 Laboratory test finding 03/12/2012 Absolute Basophils 0.060 K/ul 0.0-0.3 39 Absolute Eosinophils 0.200 K/ul 0.0-0.5 39 Absolute Lymphocytes 1.92 K/ul 0.8-4.8 39 Absolute Monocytes 0.723 K/ul 0.1-1.0 39 Absolute Neutrophils 4.70 K/ul 2.05-7.63 39 Alt 35 U/L 21-72 39 Anion Gap 14 mmol/L 10-20 39 Ast 27 U/L 17-59 39 BUN 22 mg/dL High 9-21 39 BUN/CR Ratio 17.5 Ratio 12-20 39 Basophil 0.8 % 0-2 39 Calcium 9.5 mg/dL 8.7-10.5 39 Carbon Dioxide 25 mmol/L 22-30 39 Chloride 106 mmol/L 98-107 39 Creatinine, Serum 1.3 mg/dL 0.8-1.5 39 Eosinophil 2.6 % 0-4 39 Glucose 95 mg/dL 75-110 39 Hematocrit 50.7 % 37.0-51.0 39 Hemoglobin 16.8 GM/dl High 12.0-16.0 39 Lymphocytes 25.3 % 20-44 39 MCH 30.5 pg 26.0-32.0 39 MCHC 33.1 g/dL 31.0-36.0 39 MCV 92 FL 80-97 39 Monocytes 9.5 % 2-10.0 39 Neutrophils 61.8 % 50-70 39 Platelet Count 149 K/ul 140-440 39 Potassium 4.3 mmol/L 3.6-5.0 39 RBC 5.50 M/ul 4.2-6.3 39 RDW 12.3 % 11.5-14.5 39 Sodium 140 mmol/L 137-145 39 WBC 7.6 K/ul 4.1-10.9 39 Lipid Panel 03/12/2012 Chol/HDL Ratio 2.5 39, 40 Cholesterol 165 mg/dL 50-199 39 HDL Cholesterol 65 mg/dL 40-67 39 LDL 48 mg/dL 20-70 39 Triglycerides 261 mg/dL High 30-150 39 VLDL Cholesterol 52 mg/dL 39 Laboratory test finding 03/12/2012 Uric Acid 6.1 mg/dL 2.1-7.4 39, 41 Vitamin D,25-Hydroxy 23.5 ng/mL Low 30.0-100.0 39, 42 Lipid Panel 09/12/2011 Chol/HDL Ratio 4.2 43 Cholesterol 268 mg/dL High 50-199 HDL Cholesterol [...] 140 mmol/L 137-145 Troponin-I 0.12 ng/mL 0.00-0.50 44 Uric Acid 8.3 mg/dL High 2.1-7.4 WBC 7.3 K/ul 4.1-10.9 Laboratory test finding 06/24/2011 Polyp Colon And/Or Rectum See Note 45 Laboratory test finding 06/13/2011 Uric Acid 6.5 mg/dL 2.1-7.4 Lipid Panel 06/13/2011 Chol/HDL Ratio 3.8 46 Cholesterol 250 mg/dL High 50-199 HDL Cholesterol [...] finding 11/05/2010 Absolute Basophils 0.070 K/ul 0.0-0.3 47 Absolute Eosinophils 0.621 K/ul High 0.0-0.5 47 Absolute Lymphocytes 1.98 K/ul 0.8-4.8 47 Absolute Monocytes 0.549 K/ul 0.1-1.0 47 Absolute Neutrophils 2.87 K/ul 2.05-7.63 47 Alt 39 U/L 21-72 47 Anion Gap 13 mmol/L 10-20 47 Ast 28 U/L 17-59 47 BUN 22 mg/dL High 9-21 47 BUN/CR Ratio 20.4 Ratio High 12-20 47 Basophil 1.1 % 0-2 47 Calcium 8.9 mg/dL 8.7-10.5 47 Carbon Dioxide 28 mmol/L 22-30 47 Chloride 106 mmol/L 98-107 47 Creatinine, Serum 1.1 mg/dL 0.8-1.5 47 Eosinophil 10.2 % High 0-4 47 Glucose 89 mg/dL 75-110 47 Hematocrit 50.8 % 37.0-51.0 47 Hemoglobin 16.4 GM/dl High 12.0-16.0 47 Lymphocytes 32.5 % 20-44 47 MCH 29.8 pg 26.0-32.0 47 MCHC 32.3 g/dL 31.0-36.0 47 MCV 92 FL 80-97 47 Monocytes 9.0 % 2-10.0 47 Neutrophils 47.1 % Low 50-70 47 PSA 1.94 ng/mL 0.00-4.00 47 Platelet Count 187 K/ul 140-440 47 Potassium 4.8 mmol/L 3.6-5.0 47 RBC 5.50 M/ul 4.2-6.3 47 RDW 12.6 % 11.5-14.5 47 Sodium 142 mmol/L 137-145 47 TSH 0.884 uIU/ml 0.50-6.00 47 Uric Acid 6.8 mg/dL 2.1-7.4 47, 48 Vitamin D,25-Hydroxy 25.5 ng/mL Low 32.0-100.0 47, 49 WBC 6.1 K/ul 4.1-10.9 47 Lipid Panel 11/05/2010 Chol/HDL Ratio 3.4 47, 50 Cholesterol 223 mg/dL High 50-199 47 HDL Cholesterol 64 mg/dL 40-67 47 LDL 143 mg/dL High 20-129 47 Triglycerides 80 mg/dL 30-150 47 VLDL Cholesterol 16 mg/dL 47 Testosterone,Free/Weakly 11/05/2010 Testosterone,%Free/Weakly 13.2 % 9.0- 46.0 47 Bound BND Testosterone,Free+Weakly Bound 45.1 ng/dL 40.0-250.0 47, 51 Testosterone,Serum 342 ng/dL 193-740 47 Laboratory test finding 05/31/2010 Alt 32 U/L 21-72 47 Anion Gap 8 mmol/L Low 10-20 47 Ast 25 U/L 17-59 47 BUN 23 mg/dL High 9-21 47 BUN/CR Ratio 19.6 Ratio 12-20 47 Calcium 9.7 mg/dL 8.7-10.5 47 Carbon Dioxide 29 mmol/L 22-30 47 Chloride 105 mmol/L 98-107 47 Creatinine, Serum 1.2 mg/dL 0.8-1.5 47 Glucose 80 mg/dL 75-110 47 Potassium 4.1 mmol/L 3.6-5.0 47 Sodium 138 mmol/L 137-145 47 Uric Acid 6.6 mg/dL 2.1-7.4 47, 52 Lipid Panel 05/31/2010 Chol/HDL Ratio 3.1 47, 53 Cholesterol 205 mg/dL High 50-199 47 HDL Cholesterol 66 mg/dL 40-67 47 LDL 107 mg/dL 20-129 47 Triglycerides 159 mg/dL High 30-150 47 VLDL Cholesterol 32 mg/dL 47 Testosterone,Free/Weakly 05/31/2010 Testosterone,%Free/Weakly 16.0 % 9.0- 46.0 47 Bound BND Testosterone,Free+Weakly Bound 63.5 ng/dL 40.0-250.0 47, 54 Testosterone,Serum 397 ng/dL 193-740 47, 55 Laboratory test finding 02/26/2010 Free T4 0.91 ng/dL 0.71-1.85 56 Thyroid Stim Hormone 0.80 uIU/mL 0.49-4.67 57 Laboratory test finding 10/06/2009 Anion Gap 10 mEq/L 8-16 Anisocytosis 0-1+ Atypical Lymph% 3 % 0-7 BUN 17 mg/dL 5-23 BUN/Creat 15.4 Band% 2 % 0-8 CBS W/Automated Diff See Note 58 Calcium 8.6 mg/dL 8.5-10.1 Carbon Dioxide 29 mEq/L 21-32 Chloride 105 mEq/L 98-107 Creatinine 1.1 mg/dL 0.5-1.4 Eosinophil% 1 % 0-5 Glom Filtration Rate, Estimate >60 mL/min >60 Glucose 84 mg/dL 76-115 Hematocrit 46.4 % 38.0-48.0 Hemoglobin 15.8 gm/dL 12.8-17.0 If >60 mL/min >60 59 Lymph% 27 % 17-56 Mean Cell Volume 90.6 fl 80.0-96.0 Mean Corpuscular HGB 30.9 pg 27.0-33.0 Mean Corpuscular HGB Conc 34.1 g/dL 31.7-36.0 Mean Platelet Volume 11.0 fL High 6.6-10.6 Monocyte% 6 % 0-10 Neutrophils% 61 % 33-73 Platelet Count 173 K/uL 150-400 Platelet Estimate Normal Potassium 3.9 mEq/L 3.5-5.1 Prostate Specific Antigen 1.8 ng/mL 0-4.0 60 Red Blood Count 5.12 M/uL 4.20-5.80 Red Cell Distri Width %CV 13.8 % 11.6-15.8 SGPT/Alt 44 U/L 30-65 Sgot/Ast 27 U/L 16-40 Sodium 140 mEq/L 136-145 Total Cells Counted 100 #CELLS Uric Acid 6.8 mg/dL 2.1-7.4 Vitamin D,1,25 Dihydroxy See Note 61 Vitamin D,25-Hydroxy 22.8 ng/mL Low 32.0-100.0 62 White Blood Count 6.0 K/uL 3.4-10.5 LDL Cholesterol Profile 10/06/2009 Cholesterol 225 mg/dL High 120-200 HDL Cholesterol 58 mg/dL 40-96 LDL-Cholesterol 149 mg/dL High 62-129 Triglycerides 88 mg/dL 0-150 1 I25.10 E78.2 M10.00 2 Note: Persistent reduction for 3 months or more in an eGFR <60 mL/min/1.73 m2 defines CKD. Patients with eGFR values >/=60 mL/min/1.73 m2 may also have CKD if evidence of persistent proteinuria is present. The original MDRD equation for estimated GFR is not valid for patients less than 18 years of age. Additional information may be found at www.kdoqi.org. 3 Reference Guidelines*: Desirable: ........... < 200 mg/dL Borderline High: ..... 200-239 mg/dL High: ................ >=240 mg/dL * The National Cholesterol Education Program (NCEP) 4 Reference Guidelines*: Normal: ............. < 150 mg/dL Borderline High: .... 150-199 mg/dL High: ............... 200-499 mg/dL Very High: .......... > 500 mg/dL * Source: National Cholesterol Education Program (NCEP) 5 Reference Guidelines*: Low HDL: ..... < 40 mg/dL Normal: ..... 40-60 mg/dL Desirable: ... > 60 mg/dL *The National Cholesterol Education Program(NCEP) 6 Reference Guidelines*: Optimal:........... <100 mg/dL Near Optimal....... 100-129 mg/dL Borderline High.... 130-159 mg/dL High............... 160-189 mg/dL Very High.......... >=190 mg/dL * Source: National Cholesterol Education Program (NCEP) 7 Updated reference range on new analyzer 8 Updated reference range on new analyzer 9 Concerning GFR Guidelines: Normal function or mild [...] drugs that are excreted by the kidneys. 10 Concerning GFR Guidelines for Americans: Normal function or mild renal disease, if clinically at risk: >/=60 mL/min Moderately decreased: 30-59 Severely decreased: 15-29 Renal failure: <15 11 Updated reference range on new analyzer 12 Fastin hours 13 Beginning 08/07/06 PSA values assayed at [facility] uses chemiluminescence methodology manufactured by [employer] for use on the DXI analyzer. Values obtained with different assay methods or kits can not be used interchangeably. Serum PSA measurement is not an absolute test for malignancy. The PSA value should be used in conjunction with information available from clinical evaluation and other diagnostic procedures. 14 Updated reference range on new analyzer 15 Updated reference range on new analyzer 16 Concerning GFR Guidelines: Normal function or mild [...] drugs that are excreted by the kidneys. 17 Concerning GFR Guidelines for Americans: Normal function or mild renal disease, if clinically at risk: >/=60 mL/min Moderately decreased: 30-59 Severely decreased: 15-29 Renal failure: <15 18 Updated reference range on new analyzer 19 ? HEART ATTACK 20 Note: Persistent reduction for 3 months or more in an eGFR <60 mL/min/1.73 m2 defines CKD. Patients with eGFR values >/=60 mL/min/1.73 m2 may also have CKD if evidence of persistent proteinuria is present. The original MDRD equation for estimated GFR is not valid for patients less than 18 years of age. Additional information may be found at www.kdoqi.org. 21 0.0 - 0.045 ng/mL: Normal 0.046 - 0.5 ng/mL: Suggestive 0.6 - 1.5 ng/mL: Consistent 22 Beginning 08/07/06 PSA values assayed at [facility] uses chemiluminescence methodology manufactured by [employer] for use on the DXI analyzer. Values obtained with different assay methods or kits can not be used interchangeably. Serum PSA measurement is not an absolute test for malignancy. The PSA value should be used in conjunction with information available from clinical evaluation and other diagnostic procedures. 23 Concerning GFR Guidelines: Normal function or mild [...] drugs that are excreted by the kidneys. 24 Concerning GFR Guidelines for Americans: Normal function or mild renal disease, if clinically at risk: >/=60 mL/min Moderately decreased: 30-59 Severely decreased: 15-29 Renal failure: <15 25 Per NCEP ATP III Guidelines: Results lower than 40 mg/dL are suggestive of increased risk for coronary artery disease. Results > or=to 60 mg/dL are considered a negative risk factor. 26 Per NCEP ATP III Guidelines: Normal Population <130 Patients with medical conditions: CHD/DM Optimal: <100 Borderline high: 130-159 High: 160-189 Very high: >189 27 SCHEDULE IN 6 WEEKS 28 Concerning GFR Guidelines for Americans: Normal function or mild renal disease, if clinically at risk: >/=60 mL/min Moderately decreased: 30-59 Severely decreased: 15-29 Renal failure: <15 29 Concerning GFR Guidelines: Normal function or mild [...] drugs that are excreted by the kidneys. 30 Beginning 08/07/06 PSA values assayed at [facility] [employer] uses an EIA methodology manufactured by [employer] for use on the DXI analyzer. Values obtained with different assay methods or kits can not be used interchangeably. Serum PSA measurement is not an absolute test for malignancy. The PSA value should be used in conjunction with information available from clinical evaluation and other diagnostic procedures. 31 Concerning GFR Guidelines: Normal function or mild [...] drugs that are excreted by the kidneys. 32 Concerning GFR Guidelines for Americans: Normal function or mild renal disease, if clinically at risk: >/=60 mL/min Moderately decreased: 30-59 Severely decreased: 15-29 Renal failure: <15 33 Per NCEP ATP III Guidelines: Results lower than 40 mg/dL are suggestive of increased risk for coronary artery disease. Results > or=to 60 mg/dL are considered a negative risk factor. 34 Per NCEP ATP III Guidelines: Normal Population <130 Patients with medical conditions: CHD/DM Optimal: <100 Borderline high: 130-159 High: 160-189 Very high: >189 35 Note: Persistent reduction for 3 months or more in an eGFR <60 mL/min/ 1.73 m2 defines CKD. Patients with eGFR values >/=60 mL/min/1.73 m2 may also have CKD if evidence of persistent proteinuria is present. The original MDRD equation for estimated GFR is not valid for patients less than 18 years of age. Additional information may be found at www.kdoqi.org. 36 FAXED PER REQUEST - @ 2591 07/08/13,([email or web address]) FAX COPY TO Marcos SORIANO [phone] For -Iranian patients multiply result by 1.180 38 Performed at: - [facility] [address] [id number] Community Facilitator: Leah Gonzaelz MD, Phone: [phone] RAFAEL Soriano Fax [phone] Normal Range: Male: <4.98 Female: <4.45 41 FAX OT Glenna SORIANO @ [phone] FAXED URIC PER REQUEST - @ 5012 03/12/12,( [facility]) 42 Vitamin D deficiency has been defined by the [employer] and an Endocrine Society practice guideline as a level of serum 25-OH vitamin D less than 20 ng/mL (1,2). The Endocrine Society went on to further define vitamin D insufficiency as a level between 21 and 29 ng/mL (2). 1. IOM ([employer]). 2010. Dietary reference intakes for calcium and D. [place]: The National Academies Press. 2. Yasmeen MF, [place], Devika TAMAYO, et al. Evaluation, treatment, and prevention of vitamin D deficiency: an Endocrine Society clinical practice guideline. JCEM. 2010; 96(7):1911-30. Performed at: - [facility] [id number] Community Facilitator: Leah Gonzalez MD, Phone: [phone] Normal Range: Male: <4.98 Female: <4.45 44 0 - 0.5 ng/mL: No evidence of myocardial injury 0.6 - 1.4 ng/mL: Mild elevation, suggesting possible myocardial injury > 1.4 ng/mL: Consistent with myocardial injury 45 OPERATION/PROCEDURE Colon. DIAGNOSIS: "CECUM, TRANSVERSE COLON \\E&E\\ [...] ----- IAIN Hutton MD 06/27/11 1235 ----- 46 Normal Range: Male: <4.98 Female: <4.45 47 FASTING 48 QUERY: @EMR Pat ID: QUERY: @EMR Req #: 49 Recent studies consider the lower limit of 32.0 ng/mL to be a threshold for optimal health. Aguilar BW. J Nutr. 2005 Jul;135(2):317-22. Performed at: [address] [id number] Community Facilitator: Genaro Bates MD, Phone: [phone] Normal Range: Male: <4.98 Female: <4.45 51 Performed at: [address] [id number] Community Facilitator: Genaro Bates MD, Phone: [phone] Performed at: [address] [id number] Community Facilitator: Iain Sloan MD, Phone: [phone] FASTING QUERY: @EMR Pat ID: QUERY: @EMR Req #: 53 Normal Range: Male: <4.98 Female: <4.45 54 Performed at: [address] [id number] Community Facilitator: Genaro Bates MD, Phone: [phone] Performed at: [address] [id number] Community Facilitator: Iain Sloan MD, Phone: [phone] Please note reference interval change 56 FASTING QUERY: @EMR Pat ID: QUERY: @EMR Req #: 57 FASTING QUERY: @EMR Pat ID: QUERY: @EMR Req #: 58 10/06/09 LAB.LAS MAN DIFF NEEDED 59 Note: Persistent reduction for 3 months or more in an eGFR <60 mL/min/ 1.73 m2 defines CKD. Patients with eGFR values >/=60 mL/min/1.73 m2 may also have CKD if evidence of persistent proteinuria is present. The original MDRD equation for estimated GFR is not valid for patients less than 18 years of age. Additional information may be found at www.kdoqi.org. 60 THIS ASSAY IS NOT INTENDED A CANCER SCREENING TEST. *Total_PSA methodology Axsym-MEIA, standardized to WHO 1st IS for PSA 96/670 The concentration of PSA in a given specimen, determined with assays from different manufacturers, can vary due to differences in assay methods and reagent specificity. Values obtained from different assay methods cannot be used interchangeably. 61 10/06/09 LAB.LJS SHOULD HAVE BEEN A VD25 62 Recent studies consider the lower limit of 32.0 ng/mL to be a threshold for optimal health. Aguilar AQUINO. J Nutr. 2005 Fe;135(2):317-22. Performed at: RN - [facility] [address] [id number] Community Facilitator: Genaro Bates MD Procedures Date CPT Code Description Status Comment 08/14/2017 38487 Measure Blood Oxygen Level Completed Single Determination 04/27/2017 21604 X-Ray Hand Three Views Completed 12/02/2016 Colonoscopy Completed Document: 06/24/11 - Colonoscopy Document: 06/24/11 - Colonoscopy & Biopsies Lab: 06/24/11 - Polyp Colon And/Or Rectum Document: 12/02/16 - Surgical Pathology Reports NEXT 202107/27/201563114 Inj Of Tendon (Single) Completed 05/12/2015 15966 X-Ray Foot Complete Completed 04/14/2014 03400 Measure Blood Oxygen Level Completed Single Determination 12/09/2013 28845 Measure Blood Oxygen Level Completed Single Determination 12/09/2013 84028 Spirometry /PFT W/O Completed Bronchodialator 09/12/2011 54036 Electrocardiogram Complete Completed 06/24/2011 31961 Colonoscopy Flexible Diagnostic Completed 06/24/2011 Colonoscopy Completed Document: 06/24/11 - Colonoscopy Lab Order: 06/24/11 - Lab NEXT 201602/15/2011 64055 Measure Blood Oxygen Level Completed Single Determination 11/05/2010 17969 Measure Blood Oxygen Level Completed Single Determination 11/05/2010 52472 Spirometry /PFT W/O Completed Bronchodialator 11/05/2010 51953 Electrocardiogram Complete Completed 09/27/2010 42162 Measure Blood Oxygen Level Completed Single Determination 10/05/2009 94811 Electrocardiogram Complete Completed Encounters Type Date Location Provider CPT E/M Dx Office Visit 08/14/2017 8:45[place] [address] R05 I10 Office Visit 04/27/2017 10:00[place] [address] M25.541 M10.9 Office Visit 03/27/2017 8:45[place] [address] M77.02 Office Visit 09/26/2016 2:45p [place] [address] M10.9 Office Visit 09/05/2016 9:00a Vik Solis DO G0439 Z00.00 I10 E78.2 I25.10 M10.9 Z68.24 Z23 Z86.010 R53.83 Z12.5 I20.9 Office Visit 05/02/2016 9:30a [facility] [place] [address] M10.9 Office Visit 10/23/2015 3:00p [facility] [place] [address] M10.9 Office Visit 08/31/2015 9:00a [facility] [place] Grew[place] G0439 Z00.00 Z12.5 I10 E78.2 M10.9 I25.10 K40.30 Office Visit 07/10/2015 11:00a [facility] [place] [address] M77.12 Office Visit 06/15/2015 9:30a [facility] [place] [address] M22.41 M76.51 Office Visit 05/12/2015 3:00p [place] [place] [address] M10.9 M15.0 Office Visit 03/31/2015 2:30p [facility] [place] [address] M10.9 M15.0 Office Visit 03/09/2015 2:30p [facility] [place] [address] M67.441 Office Visit 09/22/2014 9:30a [facility] [place] [address] 681.11 Office Visit 08/25/2014 2:00p [facility] [place] Grewal DO G0439 V70.0 V76.44 401.1 272.2 274.9 414.00 Plan of Care Future Appointment(s):09/18/2017 10:30 am - Mahnaz Manzanares MD at [facility]09/04/2017 - Mahnaz Manzanares MDM10.9 Gout, unspecifiedNew Medication:Probenecid 500 mgColchicine 0.6 mgNew Labs:Uric Acid-FCMGComments:pain and redness of the foot could be gout but not this is not responding in the usual manner - check uric acid level and use colchicine.Follow up:labs yqomnctrS34.115 Cellulitis of RIGHT lower limbNew Medication:Cephalexin 500 mgNew Labs:CBC with Auto Diff- fcmgComments:unclear if this is gout or cellulitis - will start antibiotics and check cbc.R60.9 Edema, unspecifiedNew Medication:Hydrochlorothiazide 25 mgNew Labs:Comprehensive Met Panel-FCMGComments:increase dose of hydrochlorothiazide tp 25 mg daily
[2017-09-22 19:08] VITALS: BP 141/84
--- NOTE | 2017-09-22 19:28 | UC ---
Lower Extremity/Ankle HPI - HPI Summary HPI Summary: pt states he was seen by his pcp on 08/27/17 and tx for gout and a cellulitis with keflex. it continued to get worse. he went to the ER on 09/07/17 and was admitted for 4 days. he was tx with rocephine and developed an allergy thus was changed to vancomycin. he states he had xrays, an us and fluid taken from the joint. on 09/10/17 he was d/c on doxycycline which he finished on 09/20/17. By 09/21, the red, pain and swelling to his inside R foot and ankle returned. he [place] fever and chills but notes the foot aches. - History of Current Complaint Chief Complaint: Mindy Stated Complaint: R FOOT - COMPLAINT AND MED ? Time Seen by Provider: 09/22/17 19:17 Hx Obtained From: Patient Onset/Duration: Gradual Onset Pain Intensity: 6 Aggravating Factor(s): Ambulation Able to Bear Weight: Yes - Allergies/Home Medications Allergies/Adverse Reactions: Allergies Allergy/AdvReac Type Severity Reaction Status Date / Time msg Allergy Swelling Uncoded 09/22/17 18:52 shellfish Allergy Gout Uncoded 09/22/17 18:52 swelling and pain Home Medications: Home Medications Anti Uric Acid Med 1 dose PO DAILY 09/22/17 [History Confirmed 09/22/17] Colchicine* [Colcrys*] 0.6 mg PO DAILY PRN 09/22/17 [History Confirmed 09/22/17] DOXYcycline CAP(*) [DOXYcycline 100MG CAP(*)] 100 mg PO BID 09/22/17 [History Confirmed 09/22/17] Metoprolol Succinate 50 mg PO DAILY 09/22/17 [History Confirmed 09/22/17] Pravastatin Sodium 40 mg PO DAILY 09/22/17 [History Confirmed 09/22/17] PMH/Surg Hx/FS Hx/Imm Hx - Additional Past Medical History Additional PMH: gout, cellulitis Endocrine History: Dyslipidemia Cardiovascular History: Hypertension - Surgical History Surgical History: Yes Surgery Procedure, Year, and Place: right knee, hernia repair - Family History Known Family History: Positive: Cardiac Disease - father of heart disease, Other - father had gout - Social History Alcohol Use: Occasionally Substance Use Type: None Smoking Status (MU): Never Smoked Tobacco - Immunization History Vaccination Up to Date: Yes Review of Systems Constitutional: Negative Skin: Rash - R medial foot/ankle Eyes: Negative ENT: Negative Respiratory: Negative Cardiovascular: Negative Gastrointestinal: Negative Genitourinary: Negative Motor: Negative Neurovascular: Negative Musculoskeletal: Arthralgia - R foot Neurological: Negative Psychological: Negative Is Patient Immunocompromised?: No All Other Systems Reviewed And Are Negative: Yes Physical Exam Triage Information Reviewed: Yes Appearance: Well-Appearing Vital Signs: Initial Vital Signs Temp 99.7 F 09/22/17 18:57 Pulse 71 09/22/17 18:57 Resp 20 09/22/17 18:57 BP 141/84 09/22/17 18:57 Pulse Ox 99 09/22/17 18:57 Eyes: Positive: Conjunctiva Clear ENT: Positive: Normal ENT inspection Neck: Positive: Supple, Nontender, No Lymphadenopathy Respiratory: Positive: Lungs clear, Normal breath sounds Cardiovascular: Positive: RRR, No Murmur Abdomen Description: Positive: Nontender, No Organomegaly, Soft, Other: - no inguinal adenopathy. Negative: Guarding Bowel Sounds: Positive: Present Musculoskeletal: Positive: Other: - R medial foot and ankle with mild swelling, erythema, warmth and tenderness. Gross s/v/m is intact. Neurological: Positive: Alert Psychological: Positive: Age Appropriate Behavior Lower Extremity Course/Dx - Course Course Of Treatment: Pt has a complicated infection to his RLE with recent hospitalization as well. He has once again failed out pt tx thus he is being transfered back to [facility] ER. report given to Rohan [place] HEAD GRINDER at [facility] ER. Advised of persistent cellulitis to RLE and recent d/c from [facility]. - Differential Dx/Diagnosis Provider Diagnoses: Persistent cellulitis RLE Discharge - Sign-Out/Discharge Documenting (check all that apply): Discharge - Discharge Plan Condition: Stable Disposition: TRANS [facility] FAC Referrals: Mahnaz Manzanares MD [Primary Care Provider] - Additional Instructions: GO DIRECTLY TO THE EMERGENCY ROOM FROM HERE DISCUSSED - Billing Disposition and Condition Condition: STABLE Disposition: EMTALA
== END 2017-09-22 19:38 | disposition short-term general hospital (02) ==
LOC: UCCORT 18:29
DX: L03.115 Cellulitis of right lower limb (principal)
CPT/HCPCS: 99212; G0463

== ENCOUNTER 2018-06-16 19:18 | Emergency (ER) | payer MEDICARE ==
[2018-06-16 19:37] VITALS: BP 152/77
[2018-06-16] MEDS ORDERED: predniSONE TAB* 20 MG PO ONE (19:49)
--- NOTE | 2018-06-16 19:53 | UC ---
Respiratory Complaint HPI - HPI Summary HPI Summary: C/O congestion and cough x 1 weeks. Persistent cough with wheezing. H/O asthma. - History of Current Complaint Chief Complaint: UCGeneralIllness Stated Complaint: COUGH,CONGESTION Time Seen by Provider: 06/16/18 19:38 Hx Obtained From: Patient Onset/Duration: Gradual Onset, Lasting Weeks - 1, Still Present Severity Initially: Mild Severity Currently: Moderate Pain Intensity: 0 Character: Cough: Nonproductive Aggravating Factors: Deep Breaths, Recumbent Position Alleviating Factors: Nothing Associated Signs And Symptoms: Positive: Wheezing, URI, Nasal Congestion, Hoarseness. Negative: Pleuritic Chest Pain, Sinus Discomfort Related History: Seasonal Allergies - Allergies/Home Medications Allergies/Adverse Reactions: Allergies Allergy/AdvReac Type Severity Reaction Status Date / Time ceftriaxone [From Rocephin] Allergy Unknown Verified 09/22/17 19:48 Reaction Details msg Allergy Swelling Uncoded 09/22/17 18:52 shellfish Allergy Gout Uncoded 09/22/17 18:52 swelling and pain Home Medications: Home Medications Dm/Acetaminophen/Doxylamine [Night Cold-Flu Relief Liq Gel] 1 each PO ONCE 06/16 [History Confirmed 06/16/18] Lisinopril/HCTZ 10/12.5(NF) [Zestoretic 10/12.5(NF)] 0.5 tab PO DAILY 06/16/18 [ History Confirmed 06/16/18] PMH/Surg Hx/FS Hx/Imm Hx Endocrine History: Dyslipidemia Cardiovascular History: Hypertension Respiratory History: Asthma - Surgical History Surgical History: Yes Surgery Procedure, Year, and Place: right knee, hernia repair - Family History Known Family History: Positive: Cardiac Disease - father of heart disease, Hypertension, Diabetes, Other - father had gout - Social History Occupation: Employed Full-time Lives: Alone Alcohol Use: Occasionally Substance Use Type: None Smoking Status (MU): Never Smoked Tobacco - Immunization History Vaccination Up to Date: Yes Review of Systems All Other Systems Reviewed And Are Negative: Yes ENT: Positive: Sore Throat, Nasal Discharge Respiratory: Positive: Cough Is Patient Immunocompromised?: No Physical Exam Triage Information Reviewed: Yes Appearance: No Pain Distress, Well-Nourished, Ill-Appearing Vital Signs: Initial Vital Signs Temp 98.3 F 06/16/18 19:33 Pulse 73 06/16/18 19:33 Resp 16 06/16/18 19:33 BP 152/77 06/16/18 19:33 Pulse Ox 99 06/16/18 19:33 Vital Signs Reviewed: Yes Eyes: Positive: Conjunctiva Clear ENT: Positive: Pharynx normal, Nasal congestion - with allergic changes, TMs normal Neck exam: Normal Respiratory: Positive: Wheezing - expiratory wheeze with coughing Cardiovascular Exam: Normal Musculoskeletal Exam: Normal Neurological Exam: Normal Psychological Exam: Normal Skin Exam: Normal UC Diagnostic Evaluation - Laboratory O2 Sat by Pulse Oximetry: 99 Respiratory Course/Dx - Differential Dx/Diagnosis Differential Diagnosis/HQI/PQRI: Asthma, Exacerbation Of COPD, Lower Resp Infection, Sinusitis Provider Diagnosis: Upper respiratory infection, Bronchospasm, acute Discharge - Sign-Out/Discharge Documenting (check all that apply): Patient Departure All imaging exams completed and their final reports reviewed: No Studies - Discharge Plan Condition: Stable Disposition: HOME Prescriptions: predniSONE TAB* [Deltasone 20 MG TAB*] 60 mg PO DAILY #18 tab Patient Education Materials: Bronchospasm (ED), Prednisone (By mouth) Referrals: Mahnaz Manzanares MD [Primary Care Provider] - - Billing Disposition and Condition Condition: STABLE Disposition: Home
== END 2018-06-16 20:09 | disposition home or self-care (01) ==
LOC: UCCORT 19:18
DX: J06.9 Acute upper respiratory infection, unspecified (principal); J98.01 Acute bronchospasm; I10 Essential (primary) hypertension; Z88.1 Allergy status to other antibiotic agents
CPT/HCPCS: 99212; G0463; J7512

== ENCOUNTER 2018-10-20 09:10 | Emergency (ER) | payer MEDICARE ==
--- OUTSIDE RECORDS SUMMARY | 2018-10-20 09:41 | XMS REPORT | Continuity of Care Document ---
:1940 External Reference #:[id number] Author Name Jarrod Pearl Care Team Providers Name Role Phone Mahnaz Manzanares MD Primary Care Physician Unavailable Payers Date Identification Numbers Payment Provider Subscriber Effective: 2007 Policy Number: [id number] Medicare [facility] Antonio Zavala Expires: 2014 Group Name: Medicare [address] [address] PayID: [id number] [place] [address] Effective: 2014 Policy Number: [id number] Medicare Blue Ppo Antonio Zavala PayID: [id number] [address] [address] [place] [address] Advance Directives Description No Information Available Problems Active Problems Provider Date Cough Jimy Elise M.D. Onset: 09/08/2014 Chronic rhinitis Jimy Elise M.D. Onset: 09/08/2014 Family History Date Family Member(s) Observation Comments General Heart Disease General Hypertension General Diabetes Type I General [place] General Diabetes Type II General Kidney Disease Father [place] Father Heart Disease Mother Diabetes Type II First Sister Diabetes Type I First Sister Kidney Disease Social History Type Date Description Comments Sex Unknown Lives With Alone Occupation [employer] Tobacco Use Start: Unknown Never Smoked Cigarettes Tobacco Use Start: Unknown Never Smoked Cigars Tobacco Use Start: Unknown Never Smoked A Pipe Smokeless Tobacco Never Used Smokeless Tobacco ETOH Use consumes 3-4 glasses per week Tobacco Use Start: Unknown Patient has never smoked Smoking Status Reviewed: 10/17/18 Patient has never smoked Exercise Type/Frequency Exercises rarely Allergies, Adverse Reactions, Alerts Active Allergies Reaction Severity Comments Date Pravastatin Cough 07/04/2018 Inactive Allergies NKDA 04/05/2011 Medications Active Medications SIG Qnty Indications Ordering Provider Date Aspirin Childrens 1 tab by mouth 30units Unknown 81mg every day Chewtabs Nifedipine ER Osmotic TK 1 T PO qd Unknown Release 60mg Tablets ER 24HR Ezetimibe TK 1 T PO qd Unknown 10mg Tablets History Medications Flonase 2 puffs both 1units 473.0 Jimy 02/20/2012 - 50mcg/Act sides once a day Marcos EliseDRaleigh 09/27/2017 Suspension Augmentin 1 tab by mouth 14tabs Alexis Jimenez, 04/05/2011 - 875-125mg twice a day for M.D. 02/20/2012 Tablets 7 days Prednisone TK 6 TS PO For 1 Unknown - 10mg Dose Today Then 09/26/2018 Tablets Decrease Dose By 1 T Until Gone Fluticasone Unknown - Propionate 06/19/2018 50mcg/Act Suspension Losartan 1/2 tab by mouth 90tabs Unknown - Potassium/Hydrochlor every day 09/26/2018 othiazide 100-25mg Tablets Lisinopril-Hydrochlo 1/2 tab by mouth Unknown - rothiazide every day 07/01/2018 Tablets Ibuprofen 200 as needed for Unknown - 800mg pain. 06/25/2018 Tablets Doxycycline 1 tab by mouth 14caps Digiovanna, - Monohydrate twice a day Antonieta, BORING INSPECTOR 09/26/2018 100mg Capsules Pravastatin Sodium 1 tablet by Unknown - mouth once daily 06/24/2018 20mg Tablets Colchicine 2 tab x 1 then Unknown - 0.6mg 0.6 mg 1 hour 09/26/2018 Capsules later x1 and repeat as needed MDD 4 Probenecid take 1 tablet by Unknown - 500mg mouth two times 07/02/2018 Tablets daily Doxycycline Hyclate one tablet twice Unknown - daily for 10 04/09/2018 100mg Capsules days. Metoprolol Succinate 1 tab by mouth 30tabs Unknown - ER every day 09/26/2018 25mg Tablets ER 24HR Amoxicillin 1 po tid for 10 30tabs Unknown - 500mg days 09/08/2014 Tablets Lisinopril 1 po qd 30tabs Unknown - 10mg 09/08/2014 Tablets Simvastatin 1 po qhs 30tabs Unknown - 40mg 09/08/2014 Tablets Metoprolol Succinate 1 po qd 90tabs Carmina Vik, - ER DO 09/08/2014 25mg Tablets ER 24HR Amoxicillin 1 by mouth twice 20tabs Unknown - 875mg a day 02/20/2012 Tablets Allopurinol 1 po qd 30tabs Unknown - 100mg 09/08/2014 Tablets Verapamil HCL ER 1 po qd 30caps Unknown - 02/20/2012 300mg Caps ER 24HR Medications Administered in Office Medication SIG Qnty Indications Ordering Provider Date Depomedrol 40MG Genaro Mock M.D. 07/11/2018 Injection Immunizations CPT Code Status Date Vaccine Lot # [id number] Given 09/05/2016 Pneumococcal Conjugate Vaccine 13 Valent For Intramuscular Use 06774 Given 01/27/2009 Hepatitis B Andrew Adoles For Intramuscular Use 00454 Given 01/27/2009 Hepatitis A Vaccine Adult Dosage 80256 Given 09/01/2008 Hepatitis B Andrew Adoles For Intramuscular Use 91050 Given 11/26/2007 Pneumonia Vaccine 12263 Given 11/26/2007 Tetanus And Diptheria (Td) For Adult Use Preservative Free 06647 Given 12/06/2004 Tetanus And Diptheria (Td) For Adult Use Preservative Free Vital Signs Date Vital Result Comment 10/17/2018 11:44am Height 61 inches 5'1" Weight 135.00 lb Heart Rate 87 /min BP Systolic Sitting 142 mmHg BP Diastolic Sitting 78 mmHg Respiratory Rate 18 /min Pain Level 4 BMI (Body Mass Index) 25.5 kg/m2 10/11/2018 9:34am Height 61 inches 5'1" Weight 139.00 lb Heart Rate 90 /min BP Systolic 138 mmHg BP Diastolic 80 mmHg Body Temperature 96.8 F Pain Level 2 BMI (Body Mass Index) 26.3 kg/m2 09/27/2018 10:15am Height 61.0 inches 5'1" Weight 140.00 lb Heart Rate 64 /min BP Systolic 142 mmHg BP Diastolic 78 mmHg Respiratory Rate 14 /min Pain Level 10 BMI (Body Mass Index) 26.4 kg/m2 07/11/2018 3:20pm Height 61.0 inches 5'1" Weight 140.00 lb Heart Rate 84 /min BP Systolic Sitting 142 mmHg R BP Diastolic Sitting 80 mmHg R Respiratory Rate 12 /min Pain Level 2 BMI (Body Mass Index) 26.4 kg/m2 07/04/2018 9:28am Height 61.0 inches 5'1" Weight 140.00 lb Heart Rate 78 /min BP Systolic Sitting 144 mmHg R BP Diastolic Sitting 76 mmHg R Respiratory Rate 18 /min Pain Level 0 BMI (Body Mass Index) 26.4 kg/m2 04/09/2018 10:28am Height 61.0 inches 5'1" Weight 139.00 lb BP Systolic 138 mmHg BP Diastolic 90 mmHg Pain Level 0 BMI (Body Mass Index) 26.3 kg/m2 10/02/2017 3:13pm Height 62 inches 5'2" Weight 132.00 lb Heart Rate 67 /min BP Systolic 170 mmHg BP Diastolic 80 mmHg Body Temperature 97.5 F O2 % BldC Oximetry 99 % BMI (Body Mass Index) 24.1 kg/m2 09/08/2014 2:37pm Heart Rate 80 /min BP Systolic Sitting 126 mmHg BP Diastolic Sitting 82 mmHg 04/05/2011 1:23pm Heart Rate 88 /min BP Systolic Sitting 140 mmHg BP Diastolic Sitting 88 mmHg Results Description No Information Available Procedures Date Code Description Status 07/11/2018 57025 Inject/Drain Joint/Bursa Intermediate W/O US Completed 09/08/2014 44621 Fibroptic Laryngoscopy Completed 04/05/2011 07735 Nasal Endoscopy, Diagnostic Completed 07/21/2008 42167 Screening Vision Test Completed 07/21/2008 43444 Pure Tone-Air Condition Only Completed Encounters Type Date Location Provider Dx Diagnosis Office Visit 07/04/2018 [facility] Ebenezer Sánchez.62 Achilles 9:30a [facility] [facility] [place] car[facility], left [place] leg Office Visit 04/09/2018 Orthopedic Ebenezer Romo.62 Achilles 10:15a [facility] MD carnes, left [place] leg Office Visit 10/02/2017 [facility] Edilberto Alfaro M10.9 Gout, unspecified 3:20p Infectious [place] Nunes Diseases Office Visit 09/08/2014 [facility] 472.0 Rhinitis Chronic 2:30p [facility] AT Gian Elise M.D. 786.2 Cough Office Visit 02/20/2012 9:15a [facility] [place] 473.0 Sinusitis C.M.A. AT [place] Elise Chronic [place] Maxillary Office Visit 04/19/2011 3:30p [facility] Alexis Jimenez 473.0 Sinusitis C.M.A. AT [place] Chronic [place] Maxillary 473.1 Sinusitis Chronic Frontal Office Visit 04/05/2011 1:30p [facility]is [place] 473.0 Sinusitis C.M.A. AT .DR[place] Chronic [place] Maxillary 473.1 Sinusitis Chronic Frontal Plan of Treatment Future Appointment(s):11/07/2018 10:45 am - Genaro Mock M.D. at [facility]
--- OUTSIDE RECORDS SUMMARY | 2018-10-20 09:41 | XMS REPORT | Continuity of Care Document ---
:1940 External Reference #:[id number] Author Name Viky Lennon Care Team Providers Name Role Phone Mahnaz Manzanares MD Primary Care Physician Unavailable Payers Date Identification Numbers Payment Provider Subscriber Effective: 2007 Policy Number: [id number] Medicare [facility] Antonio Zavala Expires: 2014 Group Name: Medicare [address] [address] PayID: [id number] [place] [address] Effective: 2014 Policy Number: [id number] Medicare Blue Ppo Antonio Zavala PayID: [id number] [address] [address] [place] [address] Advance Directives Description No Information Available Problems Active Problems Provider Date Cough Jimy Elise M.D. Onset: 09/08/2014 Chronic rhinitis Jimy Elise M.D. Onset: 09/08/2014 Family History Date Family Member(s) Observation Comments General Heart Disease General Hypertension General Diabetes Type I General NV General Diabetes Type II General Kidney Disease Father NV Father Heart Disease Mother Diabetes Type II [...] Patient has never smoked Smoking Status Reviewed: 10/11/18 Patient has never smoked Exercise Type/Frequency Exercises [...] Digiovanna, - Monohydrate twice a day Antonieta, DIRECTOR FAMILY 09/26/2018 100mg Capsules Pravastatin Sodium 1 tablet [...] CPT Code Status Date Vaccine Lot # 46356 Given 09/05/2016 Pneumococcal Conjugate Vaccine 13 Valent For Intramuscular Use 33091 Given 01/27/2009 Hepatitis B Andrew Adoles For Intramuscular Use 88706 Given 01/27/2009 Hepatitis A Vaccine Adult Dosage 76426 Given 09/01/2008 Hepatitis B Andrew Adoles For Intramuscular Use 55387 Given 11/26/2007 Pneumonia Vaccine 97262 Given 11/26/2007 Tetanus And Diptheria (Td) For Adult Use Preservative Free 66829 Given 12/06/2004 Tetanus And Diptheria (Td) For Adult Use Preservative Free Vital Signs Date Vital Result Comment 10/11/2018 9:34am Height 61 inches 5'1" Weight [...] Available Procedures Date Code Description Status 07/11/2018 57656 Inject/Drain Joint/Bursa Intermediate W/O US Completed 09/08/2014 39200 Fibroptic Laryngoscopy Completed 04/05/2011 32304 Nasal Endoscopy, Diagnostic Completed 07/21/2008 39648 Screening Vision Test Completed 07/21/2008 52006 Pure Tone-Air Condition Only Completed Encounters Type Date Location Provider Dx Diagnosis Office Visit 07/04/2018 [facility] Glenna [email or web address] Achilles 9:30a [facility] [place] [facility], left [place] leg Office Visit 04/09/2018 [facility] Glenna [id number] Achilles 10:15a [facility], left [place] leg [facility] Gout, unspecified 3:20p Infectious [facility] Office Visit 09/08/2014 [facility] 472.0 Rhinitis Chronic 2:30p [facility] AT Gian Elise M.D. 786.2 Cough Office Visit 02/20/2012 9:15a [facility] 473.0 Sinusitis [facility] AT [place] [facility] Chronic [place] Maxillary Office Visit 04/19/2011 3:30p [facility], 473.0 Sinusitis C.M.A. AT .D. Chronic [place] Maxillary 473.1 Sinusitis Chronic Frontal Office Visit 04/05/2011 1:30p [facility], 473.0 Sinusitis C.M.A. AT .D. Chronic [place] Maxillary 473.1 Sinusitis Chronic Frontal Plan of Treatment Future Appointment(s):11/07/2018 3:45 pm - Genaro Mock M.D. at [facility]
--- OUTSIDE RECORDS SUMMARY | 2018-10-20 09:42 | XMS REPORT | Continuity of Care Document ---
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 Payers Date Identification Numbers Payment Provider Subscriber Effective: 2012 Policy Number: [id number] [employer] Antonio Zavala Group Number: [id number] [address] [address] PayID: [id number] [place] [address] Advance Directives Description No Information Available Problems Active Problems Provider Date Benign prostatic hypertrophy without outflow Vik Grewal DO Onset: 07/2011 obstruction Gout Vik Grewal DO Onset: 05/31/2010 Mixed hyperlipidemia Vik Grewal DO Onset: 05/31/2010 Essential hypertension Vik Grewal DO Onset: 08/31/2015 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 Chronic kidney disease stage 3 Mahnaz Manzanares MD Onset: 10/23/2017 Resolved Problems Pure hypercholesterolemia Vik Grewal DO Onset: 08/22/2014 Resolved: 10/23/2017 Family History Date Family Member(s) Observation Comments Father CAD Father LA Father MVA Age 52 Mother CVA Age 81 Social History Type Date Description Comments Sex Unknown Marital Status Lives With Alone Occupation [employer] RIGHT-handed Tobacco Use Start: Unknown Never Smoked Cigarettes ETOH Use Occasionally consumes alcohol Tobacco Use Start: Unknown Patient has never smoked Smoking Status Reviewed: 08/13/18 Patient has never smoked Allergies, Adverse Reactions, Alerts Active Allergies Reaction Severity Comments Date Shellfish-Derived Products 10/05/2009 MSG 10/05/2009 Joe Inhibitors Moderate cough 09/04/2017 Rocephin swelling 09/18/2017 Norvasc tingling mouth & tongue 09/18/2017 Angiotensin Receptor Blockers Cough Severe 07/19/2018 Medications Active Medications SIG Qnty Indications Ordering Date Provider Hydrochlorothiazide 1 by mouth 90tabs I10 Mahnaz Manzanares, 10/09/2018 12.5mg every day Tablets Ventolin HFA 2 puffs every 4 8gm R06.2 Mahnaz Manzanaers, 07/10/2018 108(90Base) mcg/Act hours as needed Aerosol for wheezing Aspirin Low Dose 1 by mouth I25.10 Mahnaz Manzanares, 09/12/2011 81mg Chewtabs every day Nifedipine ER Osmotic TK 1 T PO qd Unknown Release 60mg Tablets ER 24HR History Medications Hydrochlorothiazide Take 1 Tablet 90tabs I10 Leighton 07/19/2018 - 12.5mg By Mouth Every MD Mahnaz 08/12/2018 Tablets Day Prednisone 6 pills by 21tabs R06.2 Leighton 07/10/2018 - 10mg Tablets mouth x 1 dose MD Mahnaz 07/18/2018 today, then decrease dose by 1 pill daily until gone. Doxycycline Monohydrate 1 by mouth 20tabs R05 Leighton 06/29/2018 - 100mg twice a day MD Mahnaz 07/09/2018 Tablets for 10 days Indomethacin Take One 30caps M10.9 Chavez, 11/02/2017 - 50mg Capsules Capsule By DO Rodolfo 05/07/2018 Mouth Three Times A Day With Food as Needed For Pain Doxycycline Monohydrate 1 by mouth 20caps L03.115 Digiovanstephany, 09/25/2017 - 100mg twice a day NICOLAS Fung 10/05/2017 Capsules for 10 days Uloric 1 po daily M10.9 Leighton 09/18/2017 - 40mg Tablets MD Mahnaz 09/18/2017 Valsartan-Hydrochlorothiaz 1 by mouth 30tabs Leighton 09/18/2017 - an every day MD Mahnaz 09/18/2017 160-12.5mg Tablets Doxycycline Hyclate 1 by mouth 20caps Leighton 09/18/2017 - 100mg twice a day MD Mahnaz 09/20/2017 Capsules Hydrochlorothiazide 1 by mouth 30tabs I10 Leighton 09/04/2017 - 25mg Tablets every day MD Mahnaz 09/18/2017 R60.9 Cephalexin 1 by mouth three 30caps L03.115 Leighton 09/04/2017 - 500mg Capsules times a day x 10 MD Mahnaz 09/18/2017 days Colchicine 2 caps by mouth M10.9 Leighton 09/04/2017 - 0.6mg Capsules x 1 dose, then 1 MD Mahnaz 05/07/2018 by mouth 1 hour later. repeat as needed, but no more frequently than every 4 days Probenecid 1 by mouth twice 60tabs M10.9 Leighton 09/04/2017 - 500mg Tablets a day MD Mahnaz 06/28/2018 Hydrochlorothiazide 1 by mouth every 30tabs I10 Leighton 08/14/2017 - 12.5mg day MD Mahnaz 09/04/2017 Tablets Probenecid take 1 1/2 45tabs M10.9 Leighton 09/19/2016 - 500mg Tablets tablet by mouth MD Mahnaz 09/04/2017 once daily Colcrys 1 PO tid X 10 30tabs M77.12 Carmina, 07/10/2015 - 0.6mg Tablets Days DO Vik 07/27/2015 Naproxen Sodium take one tablet 60tabs M22.41 Carmina, 06/15/2015 - 550mg Tablets by mouth twice a DO Vik 09/05/2016 day with food Indomethacin take one capsule 30caps M10.9 Digiovanna, 05/12/2015 - 50mg Capsules by mouth three NICOLAS Fung 04/27/2017 times a day with food as needed for pain Uloric Take One Tablet 90tabs M10.9 Carmina, 03/31/2015 - 40mg Tablets By Mouth Every DO Vik 09/19/2016 Day Augmentin 1 by mouth twice 20tabs 681.11 Carmina, 09/22/2014 - 500-125mg Tablets a day DO Vik 12/29/2014 Flonase 1 spray per 1units Digiovanna, 04/14/2014 - 50mcg/Act Suspension nostril every NICOLAS Fung 07/10/2014 day regularly Flonase 1 spray per 1units Digiovanna, 04/14/2014 - 50mcg/Act Suspension nostril every Antonieta, 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 12/29/2014 day regularly Viagra 1 po q d prn 10tabs Carmina, 06/13/2012 - 50mg Tablets Vik, DO 09/05/2016 Oseltamivir Phosphate TK 1 C PO bid Unknown - 75mg 08/12/2018 Capsules Spironolactone TK 1 T PO qd Unknown - 25mg Tablets 10/08/2018 Ezetimibe Take one by Unknown - 10mg Tablets mouth daily 10/08/2018 Losartan One half tablet I10 Unknown - Potassium/Hydrochlorothia once daily 07/19/2018 zide 100-25mg Tablets Clindamycin HCL 1 po every 6 Unknown - 150mg Capsules hours 09/25/2017 Valsartan-Hydrochlorothia 1 by mouth every I10 Unknown - zide day 08/14/2017 160-12.5mg Tablets Metoprolol Succinate ER 1 by mouth every Unknown - 25mg day 10/08/2018 Tablets ER 24HR Mometasone Furoate 2 sprays each J30.9 Unknown - 50mcg/Act nostril daily as 09/25/2017 Suspension needed Levocetirizine 1 PO Q D J30.9 Unknown - Dihydrochloride 04/27/2017 5mg Tablets Proair HFA inhale 2 puffs J45.40 Unknown - 108(90Base) mcg/Act by mouth 4 times 09/25/2017 Aerosol a day for 10-14 days Symbicort inhale two puffs J45.40 Unknown - 160-4.5mcg/Act by mouth twice a 09/25/2017 Aerosol day rinse mouth after use Pravastatin Sodium 1 by mouth every E78.2 Crystal Brown MD - 20mg Tablets day 07/18/2018 Xyzal 1 by mouth every Unknown - 5mg Tablets day 05/12/2015 Nasonex 2 sprays each Unknown - 50mcg/Act Suspension nostril every 05/12/2015 day Ventolin HFA 2 puffs by mouth Unknown - 108(90Base) every 4 hours as 05/12/2015 mcg/Act Aerosol needed Symbicort 2 puffs by mouth Unknown - 160-4.5mcg/Act bid. rinse mouth 05/12/2015 Aerosol out after each use Diovan HCT 1 po qd 90tabs Rafael Soriano MD - 160-12.5 Tablets 05/12/2015 Crestor 1 po qd 30tabs Rodriguez - 5mg Tablets MD Lance 08/25/2014 Toprol XL 1 po qd 45tabs I10 Crystal Brown MD - 25mg Tablets ER 24HR 04/27/2017 I25.10 Medications Administered in Office Medication SIG Qnty Indications Ordering Provider Date Depo Medrol 80 MG Vik Grewal DO 07/27/2015 Injection Immunizations CPT Code Status Date Vaccine Reaction Lot # [id number] Given 10/23/2017 Pneumococcal 23 Immunization Pt tolerated well [id number] Adult Or Immunosuppressed Patient [id number] Given 09/05/2016 Prevnar 13 Pneumococal Im inj completed, Pt [id number] Conjugate Vaccine tolerated well [id number] Refused 05/07/2018 Flu Vaccine NOS [id number] Refused 05/07/2018 Shingrix (Shingles) Zoster Vaccine HZV, Recombinant, Subunit, Adj 71076 Refused 10/23/2017 Afluria Or Fluvirin Flu Vac Intramuscular 99856 Refused 07/08/2013 Pneumococcal 23 Immunization Adult Or Immunosuppressed Patient 02315 Refused 03/12/2012 Afluria Or Fluvirin Flu Vac DECLINES FLU VACCINE. Intramuscular Vital Signs Date Vital Result Comment 10/09/2018 9:56am Weight 133.00 lb Heart Rate 76 /min BP Systolic 138 mmHg Pt states he took b/p pills late BP Diastolic 86 mmHg Pt states he took b/p pills late Respiratory Rate 18 /min Height 61 inches 5'1" BMI (Body Mass Index) 25.1 kg/m2 08/13/2018 10:22am Weight 131.00 lb Heart Rate 70 /min BP Systolic 134 mmHg BP Diastolic 78 mmHg Respiratory Rate 18 /min Height 61 inches 5'1" O2 % BldC Oximetry 96 % Ra BMI (Body Mass Index) 24.7 kg/m2 07/19/2018 4:13pm Body Temperature 97.7 F Weight 131.50 lb Heart Rate 88 /min BP Systolic 132 mmHg BP Diastolic 72 mmHg Respiratory Rate 18 /min Height 61 inches 5'1" O2 % BldC Oximetry 97 % Ra BMI (Body Mass Index) 24.8 kg/m2 07/10/2018 10:54am Body Temperature 97.2 F Weight 131.50 lb Heart Rate 86 /min BP Systolic 124 mmHg BP Diastolic 68 mmHg Respiratory Rate 18 /min Height 61 inches 5'1" O2 % BldC Oximetry 96 % Ra BMI (Body Mass Index) 24.8 kg/m2 06/29/2018 11:06am Body Temperature 98.8 F Weight 133.00 lb Heart Rate 94 /min BP Systolic 142 mmHg BP Diastolic 78 mmHg Respiratory Rate 18 /min Height 61 inches 5'1" O2 % BldC Oximetry 97 % Ra BMI (Body Mass Index) 25.1 kg/m2 05/07/2018 10:10am Weight 132.00 lb Heart Rate 70 /min BP Systolic 136 mmHg BP Diastolic 78 mmHg Respiratory Rate 18 /min Height 61 inches 5'1" O2 % BldC Oximetry 98 % Ra BMI (Body Mass Index) 24.9 kg/m2 01/29/2018 9:10am Body Temperature 97.2 F Weight 131.00 lb Heart Rate 74 /min BP Systolic 132 mmHg BP Diastolic 78 mmHg Respiratory Rate 17 /min Height 61 inches 5'1" (09/04/17 BMI (Body Mass Index) 24.7 kg/m2 10/23/2017 1:55pm Weight 128.00 lb Heart Rate 76 /min BP Systolic 110 mmHg BP Diastolic 70 mmHg Respiratory Rate 18 /min Height 61 inches 5'1" (09/04/17 BMI (Body Mass Index) 24.2 kg/m2 09/25/2017 3:00pm Body Temperature 98.5 F tympanic Weight 129.00 lb Heart Rate 80 /min BP Systolic 130 mmHg BP Diastolic 78 mmHg Respiratory Rate 18 /min Height 61 inches 5'1" (09/04/17 BMI (Body Mass Index) 24.4 kg/m2 09/18/2017 10:33am Weight 128.00 lb Heart Rate 76 /min BP Systolic 130 mmHg BP Diastolic 72 mmHg Respiratory Rate 18 /min Height 61 inches 5'1" (09/04/17 BMI (Body Mass Index) 24.2 kg/m2 09/04/2017 3:33pm Body Temperature 98.5 F Weight 134.00 lb Heart Rate 76 /min BP Systolic 120 mmHg BP Diastolic 60 mmHg Respiratory Rate 18 /min Height 61 inches 5'1" (09/04/17 BMI (Body Mass Index) 25.3 kg/m2 08/14/2017 8:40am Body Temperature 97.6 F Weight 132.00 lb Heart Rate 64 /min BP Systolic 130 mmHg BP Diastolic 70 mmHg Respiratory Rate 18 /min Height 61 inches 5'1" (09/05/16) O2 % BldC Oximetry 100 % BMI (Body Mass Index) 24.9 kg/m2 04/27/2017 10:18am Weight 131.00 lb Heart Rate 76 /min BP Systolic 102 mmHg BP Diastolic 70 mmHg Respiratory Rate 18 /min Height 61 inches 5'1" (09/05/16) BMI (Body Mass Index) 24.7 kg/m2 03/27/2017 8:52am Weight 132.00 lb Heart Rate 76 /min BP Systolic 102 mmHg BP Diastolic 60 mmHg Respiratory Rate 18 /min Height 61 inches 5'1" (09/05/16) BMI (Body Mass Index) 24.9 kg/m2 09/26/2016 2:54pm Weight 133.00 lb Heart Rate 76 /min BP Systolic 110 mmHg BP Diastolic 74 mmHg Respiratory Rate 16 /min Height 61 inches 5'1" (09/05/16) BMI (Body Mass Index) 25.1 kg/m2 09/05/2016 9:07am Weight 131.50 lb Heart Rate 72 /min BP Systolic 130 mmHg BP Diastolic 80 mmHg BP Systolic Recheck 130 mmHg BP Diastolic Recheck 80 mmHg Respiratory Rate 18 /min Height 61 inches 5'1" (09/05/16) BMI (Body Mass Index) 24.8 kg/m2 05/02/2016 9:55am Body Temperature 97.8 F Weight 130.00 lb Heart Rate 72 /min BP Systolic 110 mmHg BP Diastolic 70 mmHg Respiratory Rate 17 /min Height 61.0 inches 5'1" 10/23/15 BMI (Body Mass Index) 24.6 kg/m2 10/23/2015 3:22pm Weight 133.00 lb Heart Rate 78 /min BP Systolic 138 mmHg BP Diastolic 70 mmHg Respiratory Rate 18 /min 08/31/2015 9:04am Weight 130.50 lb Heart Rate 66 /min 68 Reg BP Systolic 110 mmHg BP Diastolic 62 mmHg BP Systolic Recheck 120 mmHg BP Diastolic Recheck 70 mmHg Respiratory Rate 18 /min Height 60.75 inches 5'0.75" BMI (Body Mass Index) 24.9 kg/m2 07/27/2015 10:58am Weight 136.00 lb Heart Rate 72 /min BP Systolic 130 mmHg BP Diastolic 80 mmHg Respiratory Rate 18 /min Height 61 inches 5'1" (06/27) BMI (Body Mass Index) 25.7 kg/m2 07/10/2015 10:48am Weight 136.38 lb Heart Rate 78 /min BP Systolic 132 mmHg BP Diastolic 86 mmHg Respiratory Rate 18 /min Height 61 inches 5'1" BMI (Body Mass Index) 25.8 kg/m2 06/15/2015 9:33am Weight 133.00 lb Heart Rate 66 /min BP Systolic 130 mmHg BP Diastolic 70 mmHg Respiratory Rate 18 /min Height 61 inches 5'1" BMI (Body Mass Index) 25.1 kg/m2 05/12/2015 2:59pm Weight 134.00 lb Heart Rate 66 /min BP Systolic 130 mmHg BP Diastolic 70 mmHg Respiratory Rate 18 /min 03/31/2015 2:30pm Weight 152.00 lb Heart Rate 66 /min BP Systolic 124 mmHg BP Diastolic 80 mmHg Respiratory Rate 18 /min Height 61 inches 5'1" BMI (Body Mass Index) 28.7 kg/m2 03/09/2015 2:16pm Body Temperature 98.1 F Weight 128.00 lb Heart Rate 78 /min BP Systolic 140 mmHg BP Diastolic 80 mmHg Respiratory Rate 18 /min Height 61 inches 5'1" BMI (Body Mass Index) 24.2 kg/m2 09/22/2014 9:31am Weight 134.00 lb Heart Rate 72 /min BP Systolic 154 mmHg BP Diastolic 90 mmHg Respiratory Rate 18 /min Height 61 inches 5'1" BMI (Body Mass Index) 25.3 kg/m2 08/25/2014 2:06pm Weight 137.31 lb Heart Rate 76 /min 72 Reg BP Systolic 136 mmHg BP Diastolic 78 mmHg BP Systolic Recheck 140 mmHg BP Diastolic Recheck 80 mmHg Respiratory Rate 18 /min Height 61 inches 5'1" BMI (Body Mass Index) 25.9 kg/m2 04/14/2014 8:20am Body Temperature 97.4 F Weight 130.00 lb Heart Rate 66 /min BP Systolic 158 mmHg BP Diastolic 88 mmHg Respiratory Rate 18 /min Height 61 inches 5'1" O2 % BldC Oximetry 98 % 01/06/2014 8:28am BP Systolic 124 mmHg BP Diastolic 80 mmHg 01/06/2014 8:28am Body Temperature 97.9 F Weight 132.00 lb Heart Rate 72 /min 72 Reg BP Systolic 130 mmHg BP Diastolic 82 mmHg Respiratory Rate 18 /min Height 61 inches 5'1" 12/09/2013 1:17pm Weight 130.00 lb Heart Rate 72 /min BP Systolic 118 mmHg BP Diastolic 70 mmHg Respiratory Rate 18 /min Height 61 inches 5'1" O2 % BldC Oximetry 95 % Ra 07/08/2013 10:28am BP Systolic 132 mmHg BP Diastolic 80 mmHg 07/08/2013 10:28am Weight 129.00 lb Heart Rate 66 /min 68 Reg BP Systolic 132 mmHg BP Diastolic 80 mmHg Respiratory Rate 18 /min Height 61.25 inches 5'1.25" 12/06/2012 2:30pm Weight 135.00 lb Heart Rate 80 /min BP Systolic 140 mmHg BP Diastolic 86 mmHg Respiratory Rate 18 /min Height 134 inches 11'2" 11/26/2012 9:25am Heart Rate 72 /min BP Systolic 120 mmHg BP Diastolic 80 mmHg Respiratory Rate 18 /min Height 134 inches 11'2" 10/29/2012 8:58am BP Systolic 132 mmHg BP Diastolic 80 mmHg 10/29/2012 8:58am Weight 133.00 lb Heart Rate 66 /min BP Systolic 132 mmHg BP Diastolic 80 mmHg Respiratory Rate 18 /min Height 61.25 inches 5'1.25" 05/15/2012 8:10am Body Temperature 97.5 F Weight 132.56 lb Heart Rate 92 /min BP Systolic 124 mmHg BP Diastolic 88 mmHg Respiratory Rate 16 /min 03/12/2012 10:35am BP Systolic 134 mmHg BP Diastolic 82 mmHg 03/12/2012 10:35am Weight 134.00 lb Heart Rate 86 /min 72 Reg BP Systolic 136 mmHg BP Diastolic 82 mmHg Respiratory Rate 24 /min O2 % BldC Oximetry 96 % Ra 09/12/2011 10:35am BP Systolic 130 mmHg BP Diastolic 90 mmHg 09/12/2011 10:35am Weight 133.00 lb Heart Rate 72 /min 72 Reg BP Systolic 130 mmHg BP Diastolic 90 mmHg Respiratory Rate 24 /min 06/13/2011 8:13am BP Systolic 140 mmHg BP Diastolic 98 mmHg 06/13/2011 8:13am Weight 135.00 lb Heart Rate 66 /min 72 Reg BP Systolic 132 mmHg BP Diastolic 86 mmHg Respiratory Rate 18 /min Height 61 inches 5'1" (Done On 09/27/10) 02/15/2011 2:24pm BP Systolic 162 mmHg BP Diastolic 96 mmHg 02/15/2011 2:24pm Body Temperature 97.1 F Weight 133.50 lb Heart Rate 60 /min BP Systolic 160 mmHg BP Diastolic 92 mmHg Respiratory Rate 17 /min Height 61 inches 5'1" (Done On 09/27/10) O2 % BldC Oximetry 98 % Ra 01/31/2011 10:59am BP Systolic 154 mmHg BP Diastolic 78 mmHg 01/31/2011 10:59am Body Temperature 99.8 F Weight 130.00 lb Heart Rate 87 /min BP Systolic 160 mmHg BP Diastolic 88 mmHg Respiratory Rate 18 /min Height 61 inches 5'1" (Done On 09/27/10) O2 % BldC Oximetry 99 % 11/05/2010 9:08am Body Temperature 97.4 F Weight 131.00 lb Heart Rate 72 /min BP Systolic 120 mmHg BP Diastolic 74 mmHg Respiratory Rate 18 /min Height 61 inches 5'1" (Done On 09/27/10) O2 % BldC Oximetry 98 % 10/08/2010 4:20pm Body Temperature 97.6 F Weight 132.00 lb Heart Rate 84 /min BP Systolic 138 mmHg BP Diastolic 82 mmHg Respiratory Rate 18 /min 09/27/2010 10:27am BP Systolic 162 mmHg BP Diastolic 90 mmHg 09/27/2010 10:27am Body Temperature 97.3 F Weight 133.00 lb Heart Rate 74 /min BP Systolic 170 mmHg BP Diastolic 90 mmHg Respiratory Rate 18 /min Height 61 inches 5'1" O2 % BldC Oximetry 98 % Ra 09/01/2010 8:51am Body Temperature 97.6 F Weight 137.00 lb Heart Rate 88 /min BP Systolic 164 mmHg BP Diastolic 80 mmHg 05/31/2010 1:53pm BP Systolic 122 mmHg BP Diastolic 68 mmHg 05/31/2010 1:53pm Weight 130.00 lb Heart Rate 84 /min BP Systolic 130 mmHg BP Diastolic 72 mmHg Respiratory Rate 18 /min 04/21/2010 9:37am BP Systolic 160 mmHg BP Diastolic 86 mmHg 04/21/2010 9:37am Weight 131.00 lb Heart Rate 86 /min BP Systolic 158 mmHg BP Diastolic 84 mmHg Respiratory Rate 18 /min 02/26/2010 4:04pm Weight 131.00 lb Heart Rate 78 /min BP Systolic 162 mmHg BP Diastolic 80 mmHg Respiratory Rate 24 /min 11/16/2009 10:04am Weight 127.00 lb Heart Rate 67 /min BP Systolic 170 mmHg BP Diastolic 90 mmHg Respiratory Rate 16 /min 10/05/2009 3:39pm Weight 130.00 lb Heart Rate 72 /min BP Systolic 148 mmHg BP Diastolic 72 mmHg Respiratory Rate 24 /min Results Test Date Facility Test Result H/L Range Note Laboratory test 10/01/2018 [facility] Uric Acid 9.9 mg/ dL High 3.5-7.2 1 finding (315)- - Basic (BMP) 10/01/2018 [facility] Glucose 91 mg/dL N 74 -106 (315)- - BUN 28 mg/dL High 7-18 Creatinine 1.5 mg/dL High 0.6-1.3 Glom Filtration Rate, Estimate 48 mL/min >60 If 59 mL/min >60 2 BUN/Creat 18.6 ratio Sodium 138 mmol/L N 136-145 Potassium 3.4 mmol/L Low 3.5-5.1 Chloride 102 mmol/L N 98-107 Carbon Dioxide 29 mmol/L N 21-32 Anion Gap 7 mEq/L Low 8-16 Calcium 9.0 mg/dL N 8.5-10.1 Liver Function 10/01/2018 [facility] Total Protein 7.8 g/ dL N 6.4-8.2 Tests (315)- - Albumin 3.6 g/dL N 3.4-5.0 Globulin 4.2 g/dL N 1.9-4.3 Alb/Glob 0.9 ratio Bilirubin,Total 0.7 mg/dL N 0.2-1.0 Bilirubin,Direct 0.1 mg/dL N 0.0-0.2 Bilirubin,Indirect 0.6 mg/dL N 0.0-0.9 Sgot/Ast 16 U/L N 15-37 SGPT/Alt 29 U/L N 12-78 Alkaline Phosphatase 62 U/L N 45-117 LDL Cholesterol 10/01/2018 [facility] Cholesterol 209 mg/ dL High <200 3 Profile (315)- - Triglycerides 132 mg/dL <150 4 HDL Cholesterol 79 mg/dL >40 5 LDL-Cholesterol 104 mg/dL < 100 6 Influenza A/B 07/20/2018 [facility] Influenza A POSITIVE Abnormal (Negative) 7 Antigen (315)- - Antigen Influenza B Antigen Negative (Negative) 8 Lactic Acid 07/20/2018 [facility] Lactic Acid 1.0 mmol/L N 0.4-1.9 (315)- - Lab Reflex >2.0 for Sepsis? Y Blood Culture 07/20/2018 [facility] Blood Culture NO GROWTH: FINAL 9 (315)- - Aerobic <SEE NOTE> Blood Culture Anaerobic NO GROWTH: FINAL <SEE NOTE> 10 LDL Cholesterol 04/23/2018 [facility] Cholesterol 204 mg/ dL High <200 11 Profile (315)- - Triglycerides 109 mg/dL <150 12 HDL Cholesterol 61 mg/dL >40 13 LDL-Cholesterol 121 mg/dL < 100 14 Liver Function 04/23/2018 [facility] Total Protein 7.3 g/ dL N 6.4-8.2 Tests (315)- - Albumin 3.6 g/dL N 3.4-5.0 Globulin 3.7 g/dL N 1.9-4.3 Alb/Glob 1.0 ratio Bilirubin,Total 0.5 mg/dL N 0.2-1.0 Bilirubin,Direct 0.1 mg/dL N 0.0-0.2 Bilirubin,Indirect 0.4 mg/dL N 0.0-0.9 Sgot/Ast 22 U/L N 15-37 SGPT/Alt 31 U/L N 12-78 Alkaline Phosphatase 75 U/L N 45-117 Basic (BMP) 04/23/2018 [facility] Glucose 98 mg/dL N 74 -106 (315)- - BUN 38 mg/dL High 7-18 Creatinine 1.8 mg/dL High 0.6-1.3 Glom Filtration Rate, Estimate 39 mL/min >60 If 47 mL/min >60 15 BUN/Creat 21.1 ratio Sodium 141 mmol/L N 136-145 Potassium 4.1 mmol/L N 3.5-5.1 Chloride 105 mmol/L N 98-107 Carbon Dioxide 30 mmol/L N 21-32 Anion Gap 6 mEq/L Low 8-16 Calcium 9.0 mg/dL N 8.5-10.1 Laboratory test 04/23/2018 [facility] Uric Acid 7.8 mg/ dL High 3.5-7.2 finding (177)- - Laboratory test 01/23/2018 [facility] Prostate 2.26 < 4.0 16, 17 finding Lab Dept Specific ng/mL [phone] Antigen LDL Cholesterol 01/23/2018 [facility] Cholesterol 201 mg/dL High <200 18 Profile Lab Dept [phone] Triglycerides 104 mg/dL <150 19 HDL Cholesterol 52 mg/dL >40 20 LDL-Cholesterol 128 mg/dL < 100 21 Comprehensive Metabolic 01/23/2018 [facility] Glucose 92 mg/dL N 74-106 Panel Lab Dept [phone] BUN 23 mg/dL High 7-18 Creatinine 1.6 mg/dL High 0.6-1.3 Glom Filtration Rate, Estimate 45 mL/min >60 If 54 mL/min >60 22 BUN/Creat 14.3 ratio Sodium 144 mmol/L N 136-145 Potassium 3.9 mmol/L N 3.5-5.1 Chloride 109 mmol/L High 98-107 Carbon Dioxide 27 mmol/L N 21-32 Anion Gap 8 mEq/L N 8-16 Calcium 8.6 mg/dL N 8.5-10.1 Total Protein 6.6 g/dL N 6.4-8.2 Albumin 3.3 g/dL Low 3.4-5.0 Globulin 3.3 g/dL N 1.9-4.3 Alb/Glob 1.0 ratio Bilirubin,Total 0.3 mg/dL N 0.2-1.0 Sgot/Ast 19 U/L N 15-37 SGPT/Alt 26 U/L N 12-78 Alkaline Phosphatase 65 U/L N 45-117 CBS W/Automated Diff 10/19/2017 [facility] White Blood 8.5 K/uL N 3.4-10.5 23 (315)- - Count Red Blood Count 5.26 M/uL N 4.20-5.80 Hemoglobin 16.0 gm/dL N 12.8-17.0 Hematocrit 47.6 % N 38.0-48.0 Mean Cell Volume 90.5 fl N 80.0-96.0 Mean Corpuscular HGB 30.4 pg N 27.0-33.0 Mean Corpuscular HGB Conc 33.6 g/dL N 31.7-36.0 Platelet Count 190 K/uL N 155-360 Red Cell Distri Width SD 45.8 fl N 36-51 Red Cell Distri Width %CV 14.3 % N 11.6-15.8 Mean Platelet Volume 11.1 fL High 6.6-10.6 Neut% 56.2 % N 33.0-73.0 Lymph % 30.1 % N 20.0-42.0 Morris % 11.5 % High 0.0-10.0 Eo% 2.0 % N 0.0-6.6 Bas% 0.2 % N 0.0-1.1 Neut# 4.80 K/uL N 1.8-7.0 Lymph # 2.57 K/uL N 1.0-4.0 Morris # 0.98 K/uL High 0.0-0.8 Eos # 0.17 K/uL N 0.0-0.5 Baso # 0.02 K/uL N 0.0-0.1 Comprehensive Metabolic 10/19/2017 [facility] Glucose 88 mg/dL N 74-106 Panel (315)- - BUN 32 mg/dL High 7-18 Creatinine 1.7 mg/dL High 0.6-1.3 Glom Filtration Rate, Estimate 42 mL/min >60 If 51 mL/min >60 24 BUN/Creat 18.8 ratio Sodium 138 mmol/L N 136-145 Potassium 3.6 mmol/L N 3.5-5.1 Chloride 102 mmol/L N 98-107 Carbon Dioxide 29 mmol/L N 21-32 Anion Gap 7 mEq/L Low 8-16 Calcium 9.4 mg/dL N 8.5-10.1 Total Protein 7.7 g/dL N 6.4-8.2 Albumin 3.8 g/dL N 3.4-5.0 Globulin 3.9 g/dL N 1.9-4.3 Alb/Glob 1.0 ratio Bilirubin,Total 0.4 mg/dL N 0.2-1.0 Sgot/Ast 21 U/L N 15-37 SGPT/Alt 38 U/L N 12-78 Alkaline Phosphatase 70 U/L N 45-117 Laboratory test 10/19/2017 [facility] Uric Acid 6.6 mg/ dL N 3.5-7.2 finding (315)- - Laboratory test 09/10/2017 [facility] Vancomycin 4.7 ug/ mL Low 15.0-20.0 25, 26 finding (315)- - ,Trough CBS W/Automated 09/10/2017 [facility] White 13.7 K/uL High 3.4-10.5 Diff (315)- - Blood Count Red Blood Count 4.81 M/uL N 4.20-5.80 Hemoglobin 14.8 gm/dL N 12.8-17.0 Hematocrit 42.5 % N 38.0-48.0 Mean Cell Volume 88.4 fl N 80.0-96.0 Mean Corpuscular HGB 30.8 pg N 27.0-33.0 Mean Corpuscular HGB Conc 34.8 g/dL N 31.7-36.0 Platelet Count 194 K/uL N 155-360 Red Cell Distri Width SD 42.6 fl N 36-51 Red Cell Distri Width %CV 13.5 % N 11.6-15.8 Mean Platelet Volume 11.2 fL High 6.6-10.6 Neut% 74.5 % High 33.0-73.0 Lymph % 15.8 % Low 20.0-42.0 Morris % 9.6 % N 0.0-10.0 Eo% 0.1 % N 0.0-6.6 Bas% 0.0 % N 0.0-1.1 Neut# 10.19 K/uL High 1.8-7.0 Lymph # 2.16 K/uL N 1.0-4.0 Morris # 1.31 K/uL High 0.0-0.8 Eos # 0.02 K/uL N 0.0-0.5 Baso # 0.00 K/uL N 0.0-0.1 Basic Metabolic Panel 09/10/2017 [facility] Glucose 89 mg /dL N 74-106 (315)- - BUN 35 mg/dL High 7-18 Creatinine 1.3 mg/dL N 0.6-1.3 Glom Filtration Rate, Estimate 57 mL/min >60 If >60 mL/min >60 27 BUN/Creat 26.9 ratio Sodium 141 mmol/L N 136-145 Potassium 3.4 mmol/L Low 3.5-5.1 Chloride 106 mmol/L N 98-107 Carbon Dioxide 25 mmol/L N 21-32 Anion Gap 10 mEq/L N 8-16 Calcium 8.8 mg/dL N 8.5-10.1 Basic Metabolic Panel 09/09/2017 [facility] Glucose 124 mg/dL High 74-106 (315)- - BUN 33 mg/dL High 7-18 Creatinine 1.5 mg/dL High 0.6-1.3 Glom Filtration Rate, Estimate 48 mL/min >60 If 59 mL/min >60 28 BUN/Creat 22.0 ratio Sodium 137 mmol/L N 136-145 Potassium 3.6 mmol/L N 3.5-5.1 Chloride 102 mmol/L N 98-107 Carbon Dioxide 28 mmol/L N 21-32 Anion Gap 7 mEq/L Low 8-16 Calcium 9.2 mg/dL N 8.5-10.1 CBS W/Automated 09/09/2017 [facility] White Blood 12.7 K/ uL High 3.4-10.5 Diff (315)- - Count Red Blood Count 5.00 M/uL N 4.20-5.80 Hemoglobin 15.5 gm/dL N 12.8-17.0 Hematocrit 43.4 % N 38.0-48.0 Mean Cell Volume 86.8 fl N 80.0-96.0 Mean Corpuscular HGB 31.0 pg N 27.0-33.0 Mean Corpuscular HGB Conc 35.7 g/dL N 31.7-36.0 Platelet Count 207 K/uL N 155-360 Red Cell Distri Width SD 41.4 fl N 36-51 Red Cell Distri Width %CV 13.3 % N 11.6-15.8 Mean Platelet Volume 11.3 fL High 6.6-10.6 Neut% 86.2 % High 33.0-73.0 Lymph % 9.0 % Low 20.0-42.0 Morris % 4.8 % N 0.0-10.0 Eo% 0.0 % N 0.0-6.6 Bas% 0.0 % N 0.0-1.1 Neut# 10.90 K/uL High 1.8-7.0 Lymph # 1.14 K/uL N 1.0-4.0 Morris # 0.61 K/uL N 0.0-0.8 Eos # 0.00 K/uL N 0.0-0.5 Baso # 0.00 K/uL N 0.0-0.1 Slide Review 09/09/2017 [facility] Slide Review . 29 (315)- - Routine Culture 09/08/2017 [facility] Gram Stain NO ORGANISMS SEE 30 W/ Gram Stain (315)- - <SEE NOTE> Aerobic Culture NO GROWTH: FINAL <SEE NOTE> 31 Laboratory test 09/05/2017 [facility] Uric Acid 4.8 mg/ dL N 3.5-7.2 32 finding (315)- - Comprehensive 09/05/2017 [facility] Glucose 95 mg/dL N 74-106 Metabolic Panel (315)- - BUN 21 mg/dL High 7-18 Creatinine 1.5 mg/dL High 0.6-1.3 Glom Filtration Rate, Estimate 48 mL/min >60 If 59 mL/min >60 33 BUN/Creat 14.0 ratio Sodium 140 mmol/L N 136-145 Potassium 3.6 mmol/L N 3.5-5.1 Chloride 106 mmol/L N 98-107 Carbon Dioxide 29 mmol/L N 21-32 Anion Gap 5 mEq/L Low 8-16 Calcium 9.4 mg/dL N 8.5-10.1 Total Protein 7.8 g/dL N 6.4-8.2 Albumin 3.5 g/dL N 3.4-5.0 Globulin 4.3 g/dL N 1.9-4.3 Alb/Glob 0.8 ratio Bilirubin,Total 0.6 mg/dL N 0.2-1.0 Sgot/Ast 16 U/L N 15-37 SGPT/Alt 17 U/L N 12-78 Alkaline Phosphatase 60 U/L N 45-117 CBC with Auto 09/05/2017 [facility] White Blood 8.3 K/uL N 3.4-10.5 Diff-fcmg (315)- - Count Red Blood Count 5.22 M/uL N 4.20-5.80 Hemoglobin 16.1 gm/dL N 12.8-17.0 Hematocrit 46.7 % N 38.0-48.0 Mean Cell Volume 89.5 fl N 80.0-96.0 Mean Corpuscular HGB 30.8 pg N 27.0-33.0 Mean Corpuscular HGB Conc 34.5 g/dL N 31.7-36.0 Platelet Count 157 K/uL N 155-360 Red Cell Distri Width SD 44.7 fl N 36-51 Red Cell Distri Width %CV 13.9 % N 11.6-15.8 Mean Platelet Volume 11.3 fL High 6.6-10.6 Neut% 65.0 % N 33.0-73.0 Lymph % 19.6 % Low 20.0-42.0 Morris % 12.9 % High 0.0-10.0 Eo% 2.1 % N 0.0-6.6 Bas% 0.4 % N 0.0-1.1 Neut# 5.39 K/uL N 1.8-7.0 Lymph # 1.62 K/uL N 1.0-4.0 Morris # 1.07 K/uL High 0.0-0.8 Eos # 0.17 K/uL N 0.0-0.5 Baso # 0.03 K/uL N 0.0-0.1 Comprehensive Metabolic 07/24/2017 [facility] Glucose 96 mg/dL N 74-106 34 Panel (315)- - BUN 32 mg/dL High 7-18 Creatinine 1.6 mg/dL High 0.6-1.3 Glom Filtration Rate, Estimate 45 mL/min >60 If 54 mL/min >60 35 BUN/Creat 20.0 ratio Sodium 144 mmol/L N 136-145 Potassium 4.1 mmol/L N 3.5-5.1 Chloride 111 mmol/L High 98-107 Carbon Dioxide 28 mmol/L N 21-32 Anion Gap 5 mEq/L Low 8-16 Calcium 8.8 mg/dL N 8.5-10.1 Total Protein 6.4 g/dL N 6.4-8.2 Albumin 3.0 g/dL Low 3.4-5.0 Globulin 3.4 g/dL N 1.9-4.3 Alb/Glob 0.9 ratio Bilirubin,Total 0.3 mg/dL N 0.2-1.0 Sgot/Ast 16 U/L N 15-37 SGPT/Alt 22 U/L N 12-78 Alkaline Phosphatase 58 U/L N 45-117 Laboratory test 07/24/2017 [facility] Uric Acid 6.2 mg/ dL N 3.5-7.2 finding (315)- - LDL Cholesterol 07/24/2017 [facility] Cholesterol 192 mg/ dL <200 36 Profile (315)- - Triglycerides 138 mg/dL <150 37 HDL Cholesterol 49 mg/dL >40 38 LDL-Cholesterol 115 mg/dL < 100 39 CBS W/Automated Diff 07/24/2017 [facility] White Blood 5.2 K/uL N 3.4-10.5 (315)- - Count Red Blood Count 4.76 M/uL N 4.20-5.80 Hemoglobin 14.8 gm/dL N 12.8-17.0 Hematocrit 42.6 % N 38.0-48.0 Mean Cell Volume 89.5 fl N 80.0-96.0 Mean Corpuscular HGB 31.1 pg N 27.0-33.0 Mean Corpuscular HGB Conc 34.7 g/dL N 31.7-36.0 Platelet Count 143 K/uL Low 155-360 Red Cell Distri Width SD 42.2 fl N 36-51 Red Cell Distri Width %CV 13.3 % N 11.6-15.8 Mean Platelet Volume 10.7 fL High 6.6-10.6 Neut% 50.3 % N 33.0-73.0 Lymph % 32.7 % N 20.0-42.0 Morris % 10.7 % High 0.0-10.0 Eo% 5.9 % N 0.0-6.6 Bas% 0.4 % N 0.0-1.1 Neut# 2.63 K/uL N 1.8-7.0 Lymph # 1.71 K/uL N 1.0-4.0 Morris # 0.56 K/uL N 0.0-0.8 Eos # 0.31 K/uL N 0.0-0.5 Baso # 0.02 K/uL N 0.0-0.1 Laboratory test finding 04/27/2017 [facility] U[facility] Acid 9.5 mg/dL High 2.6- 8.4 Basic (BMP) 04/27/2017 [facility] Sodium 142 mmol/L 135-146 40 Potassium 4.6 mmol/L 3.5-5.2 Chloride# 104 mmol/L 97-110 41 Carbon Dioxide 30 mmol/L 24-34 Glucose 85 mg/dL 70-105 Creatinine 1.4 mg/dL 0.5-1.4 Calcium 9.4 mg/dL 8.5-10.2 Non Teresa Egfr 48 Low >60 42 Teresa Egfr 58 Low >60 43 Anion Gap 8 mmol/L 7-16 44 BUN 35 mg/dL High 6-26 CBC With Auto Diff 04/27/2017 [facility] WBC 7.8 K/uL 4.1-11.0 RBC 5.26 M/uL [...] 0.1 K/uL 0.0-0.3 Laboratory test finding 04/27/2017 [facility] Esr 19 mm/hr High 0-15 CCP Antibody Igg Negative Negative Rheumatoid Factor <10.0 IU/mL 0.0-10.0 Laboratory test finding 09/05/2016 [facility] Uric Acid 10.1 mg/dL High 2.6- 8.4 45 PSA 2.690 ng/mL 0.000-4.000 46 CBC With Auto Diff 09/05/2016 [facility] WBC 6.0 K/uL 4.1-11.0 RBC 5.64 M/uL 4.60-6.10 Hemoglobin 17.0 gm/dL 13.5-18.0 Hematocrit 51.0 % 41.0-53.0 MCV 90.4 fL 80.0-97.0 MCH 30.2 pg 27.0-32.0 MCHC 33.4 g/dL 32.0-36.0 RDW 13.5 % 11.5-14.5 PLT Count 161 K/ul 140-400 Neutrophil 55.4 % 35.0-75.0 Lymphocyte 29.9 % 16.0-52.0 Monocyte 10.0 % 2.0-10.0 Eosinophil 3.2 % 0.0-5.0 Basophil 1.5 % 0.0-4.0 Abs Neutrophils 3.3 K/uL 2.1-8.0 Abs Lymphocytes 1.8 K/uL 0.8-5.5 Abs Monocytes 0.6 K/uL 0.1-1.0 Abs Eosinophils 0.2 K/uL 0.0-0.5 Abs Basophils 0.1 K/uL 0.0-0.3 Basic (BMP) 09/05/2016 [facility] Sodium 144 mmol/L 135-146 47 Potassium 5.0 mmol/L 3.5-5.2 Chloride# 107 mmol/L 97-110 48 Carbon Dioxide 31 mmol/L 24-34 Glucose 91 mg/dL 70-105 BUN 23 mg/dL 6-26 Creatinine 1.4 mg/dL 0.5-1.4 Calcium 9.7 mg/dL 8.5-10.2 Non Teresa Egfr 49 Low >60 49 Teresa Egfr 60 Low >60 50 Anion Gap 11 mmol/L 7-16 51 Laboratory test finding 09/05/2016 [facility] TSH 0.59 uIU/mL 0.35-4.94 Vitamin B12 389 pg/mL 180-914 CBS W/Automated Diff 07/06/2016 [facility] White Blood 7.2 K/uL N 3.4-10.5 52 (315)- - Count Red Blood Count 5.51 M/uL N 4.20-5.80 Hemoglobin 16.5 gm/dL N 12.8-17.0 Hematocrit 49.1 % High 38.0-48.0 Mean Cell Volume 89.1 fl N 80.0-96.0 Mean Corpuscular HGB 29.9 pg N 27.0-33.0 Mean Corpuscular HGB Conc 33.6 g/dL N 31.7-36.0 Platelet Count 157 K/uL N 150-400 Red Cell Distri Width SD 43.0 fl N 36-51 Red Cell Distri Width %CV 13.2 % N 11.6-15.8 Mean Platelet Volume 10.8 fL High 6.6-10.6 Neut% 44.2 % N 33.0-73.0 Lymph % 37.8 % N 20.0-42.0 Morris % 13.4 % High 0.0-10.0 Eo% 4.2 % N 0.0-5.0 Bas% 0.4 % N 0.1-1.0 Neut# 3.16 K/uL N 1.8-7.0 Lymph # 2.70 K/uL N 1.0-4.0 Morris # 0.96 K/uL High 0.0-0.8 Eos # 0.30 K/uL N 0.0-0.5 Baso # 0.03 K/uL Low 0.1-0.2 Comprehensive Metabolic 07/06/2016 [facility] Glucose 84 mg/dL N 74-106 Panel (315)- - BUN 31 mg/dL High 7-18 Creatinine 1.6 mg/dL High 0.6-1.3 Glom Filtration Rate, Estimate 45 mL/min N >60 If 55 mL/min N >60 53 BUN/Creat 19.3 ratio N Sodium 144 mmol/L N 136-145 Potassium 3.8 mmol/L N 3.5-5.1 Chloride 109 mmol/L High 98-107 Carbon Dioxide 26 mmol/L N 21-32 Anion Gap 9 mEq/L N 8-16 Calcium 8.8 mg/dL N 8.5-10.1 Total Protein 7.2 g/dL N 6.4-8.2 Albumin 3.4 g/dL N 3.4-5.0 Globulin 3.8 g/dL N 1.9-4.3 Alb/Glob 0.9 ratio N Bilirubin,Total 0.3 mg/dL N 0.2-1.0 Sgot/Ast 23 U/L N 15-37 SGPT/Alt 38 U/L N 12-78 Alkaline Phosphatase 57 U/L N 45-117 Laboratory test finding 07/06/2016 [facility] CK 148 U/L N 39-308 (315)- - Troponin-I < 0.015 ng/mL N 54 Laboratory test finding 08/31/2015 [facility] PSA 2.220 ng/mL 0.000-4.000 55 CBC With Auto Diff 08/31/2015 [facility] WBC 9.0 K/uL 4.1-11.0 RBC 5.46 M/uL [...] Basophils 0.1 K/uL 0.0-0.3 Basic (BMP) 08/31/2015 [facility] Sodium 139 mmol/L 134-142 Potassium 4.1 mmol/L 3.5-5.2 Chloride 102 mmol/L 97-109 Carbon Dioxide 30 mmol/L 24-34 Glucose 82 mg/dL 70-105 BUN 33 mg/dL High 6-26 Creatinine 1.3 mg/dL 0.5-1.4 Calcium 9.6 mg/dL 8.5-10.2 Anion Gap 11 mmol/L 6-14 Non Teresa Egfr 53 Low >60 56 Teresa Egfr >60 >60 57 Lipid Treatment 08/31/2015 [facility] Cholesterol 244 mg/dL High 50-199 Triglycerides 235 mg/dL High 30-150 HDL 63 mg/dL 40-71 58 Chol/ HDL Ratio 3.9 ratio Low 4.0-6.7 VLDL 47 mg/dL High 2-29 LDL (Calc) 134 mg/dL High 20-70 59 Alt 36 U/L 3-42 Ast 26 U/L 8-42 Laboratory test finding 08/31/2015 [facility] Uric Acid 6.6 mg/dL 2.6-8.4 Laboratory test finding 05/11/2015 [facility] Uric Acid 5.2 mg/dL 2.6-8.4 60 Comprehensive Metabolic (CMP) 05/11/2015 [facility] Sodium 138 mmol/L 134- 142 Potassium 4.9 mmol/L 3.5-5.2 Chloride 106 mmol/L 97-109 Carbon Dioxide 26 mmol/L 24-34 Glucose 88 mg/dL 70-105 BUN 28 mg/dL High 6-26 Creatinine 1.5 mg/dL High 0.5-1.4 Calcium 9.6 mg/dL 8.5-10.2 Total Protein 6.7 g/dL 6.0-8.0 Albumin 4.0 g/dL 3.6-4.9 Globulin 2.7 g/dL 2.0-3.5 A/G Ratio 1.5 Ratio 1.0-2.2 Total Bilirubin 0.4 mg/dL 0.1-1.3 Alkaline Phosphatase 42 U/L 24-140 Alt 22 U/L 3-42 Ast 16 U/L 8-42 Anion Gap 11 mmol/L 6-14 Teresa Egfr 55 Low >60 61 Non Teresa Egfr 45 Low >60 62 Laboratory test finding 08/25/2014 [facility] PSA 2.120 ng/mL 0.000-4.000 63 Basic (BMP) 08/25/2014 [facility] Sodium 135 mmol/L 134-142 Potassium 4.2 mmol/L 3.5-5.2 Chloride 103 mmol/L 97-109 Carbon Dioxide 25 mmol/L 24-34 Glucose 80 mg/dL 70-105 BUN 25 mg/dL 6-26 Creatinine 1.5 mg/dL 0.5-1.5 Calcium 9.1 mg/dL 8.5-10.2 Anion Gap 11 mmol/L 6-14 Non Teresa Egfr 47 Low >60 64 Teresa Egfr 57 Low >60 65 CBC With Auto Diff 08/25/2014 [facility] WBC 9.0 K/uL 4.1-11.0 RBC 5.32 M/uL [...] Basophils 0.0 K/uL 0.0-0.3 Lipid Treatment 08/25/2014 [facility] Cholesterol 225 mg/dL High 50-199 Triglycerides 232 mg/dL High 30-150 HDL 45 mg/dL 40-71 66 Chol/ HDL Ratio 5.0 ratio 4.0-6.7 VLDL 46 mg/dL High 2-29 LDL (Calc) 134 mg/dL High 20-70 67 Alt 21 U/L 3-42 Ast 18 U/L 8-42 Laboratory test finding 08/25/2014 [facility] Uric Acid 11.9 mg/dL High 2.6- 8.4 Laboratory test finding 02/11/2014 N2N/CCD Import Alb/Glob 1.2 ratio Albumin 3.5 g/dL 3.5-5.0 [...] 89 mg/dL 76-115 If >60 mL/min >60 68 Potassium 3.6 mmol/L 3.5-5.1 SGPT/Alt 27 U/L Low 30-65 Sgot/Ast 19 U/L 16-40 Sodium 141 mmol/L 136-145 Total Protein 6.4 g/dL 6.3-8.0 LDL Cholesterol Profile 02/11/2014 N2N/CCD Import Cholesterol 175 mg/dL 120-200 HDL Cholesterol 47 mg/dL 29-83 LDL-Cholesterol 92 mg/dL 62-185 Triglycerides 178 mg/dL 16-231 Laboratory test finding 07/08/2013 N2N/CCD Import % Baso. 1.2 % 0.0-2.0 % Eos. 2.4 % 0.0-4.0 % Lymph 28 % 20-44 % Morris 9.4 % 2.0-10.0 % Miguel Angel 59 % 50-70 A/G Ratio 1.8 ratio 1.6-2.2 Absolute Baso. 0.1 K/ul 0.0-0.3 Absolute Eos. 0.2 K/ul 0.0-0.5 Absolute Lymph. 2.3 K/ul 0.8-4.8 Absolute Morris. 0.8 K/ul 0.1-1.0 Absolute Miguel Angel. 4.81 [...] g/dL 6.3-8.2 Uric Acid 6.2 mg/dL 2.1-7.4 69 WBC 8.2 K/ul 4.1-10.9 eGFR 50.0 mi/minper1.73 70 Lipid Panel 07/08/2013 N2N/CCD Import Chol/HDL Ratio 4.0 ratio Cholesterol 234.0 mg/dL High 50.0-199.0 HDL 58.0 mg/dL 40.0-67.0 LDL, Calculated 142.4 mg/dL High 20.0-70.0 Triglycerides 168.0 mg/dL High 30.0-150.0 vLDL 33.6 ng/dL Laboratory test finding 10/29/2012 N2N/CCD Import Uric Acid 7.2 mg/dL 2.1-7.4 Alt 37.0 [...] pg/mL 200.0-900.0 eGFR 58.0 Lipid Panel 10/29/2012 [facility]/[place] Import Chol/HDL Ratio 3.3 ratio Cholesterol 163.0 mg/dL 50.0-199.0 HDL 49.0 mg/dL 40.0-67.0 LDL, Calculated 72.4 mg/dL High 20.0-70.0 Triglycerides 208.0 mg/dL High 30.0-150.0 vLDL 41.6 ng/dL Laboratory test finding 10/29/2012 [employer] Import Alt 37.0 U/L 21.0- 72.0 Ast 28.0 U/L 17.0-59.0 BUN 26.0 mg/dL High 9.0-21.0 BUN/Creat Ratio 20.0 ratio 12.0-20.0 Calcium 9.6 mg/dL 8.7-10.5 Chloride 106.0 mmol/L 98.0-107.0 Co2 23.0 mmol/L 22.0-30.0 Creatinine-Serum 1.3 mg/dL 0.8-1.5 Glucose 94.0 mg/dL 75.0-110.0 PSA 1.7 ng/mL 0.0-4.0 Potasium 4.2 mmol/L 3.6-5.0 Sodium 141.0 mmil/L 137.0-145.0 TSH 0.87 uIU/ml 0.50-6.00 Vitamin B12 457.0 pg/mL 200.0-900.0 eGFR 58.0 Lipid Panel 10/29/2012 [employer] Import Chol/HDL Ratio 3.3 ratio Cholesterol 163.0 mg/dL 50.0-199.0 HDL 49.0 mg/dL 40.0-67.0 LDL, Calculated 72.4 mg/dL High 20.0-70.0 Triglycerides 208.0 mg/dL High 30.0-150.0 vLDL 41.6 ng/dL Laboratory test finding 10/29/2012 [employer] Import Alt 37.0 U/L 21.0- 72.0 Ast 28.0 U/L 17.0-59.0 BUN 26.0 mg/dL High 9.0-21.0 BUN/Creat Ratio 20.0 ratio 12.0-20.0 Calcium 9.6 mg/dL 8.7-10.5 Chloride 106.0 mmol/L 98.0-107.0 Co2 23.0 mmol/L 22.0-30.0 Creatinine-Serum 1.3 mg/dL 0.8-1.5 Glucose 94.0 mg/dL 75.0-110.0 PSA 1.7 ng/mL 0.0-4.0 Potasium 4.2 mmol/L 3.6-5.0 Sodium 141.0 mmil/L 137.0-145.0 TSH 0.87 uIU/ml 0.50-6.00 Vitamin B12 457.0 pg/mL 200.0-900.0 eGFR 58.0 Lipid Panel 10/29/2012 N2N/[facility]D Import Chol/HDL Ratio 3.3 ratio Cholesterol 163.0 mg/dL 50.0-199.0 HDL 49.0 mg/dL 40.0-67.0 LDL, Calculated 72.4 mg/dL High 20.0-70.0 Triglycerides 208.0 mg/dL High 30.0-150.0 vLDL 41.6 ng/dL Laboratory test 09/06/2012 [facility]/[place] Import [id number],Serum 90 mg/ dL 90-200 finding Immunoglobulin E,Total 2410 IU/mL High 0-100 71 Laboratory test 03/12/2012 [facility]/[place] Import Absolute 0.060 K/ul 0.0-0.3 72 finding Basophils Absolute Eosinophils 0.200 K/ul 0.0-0.5 Absolute Lymphocytes 1.92 K/ul 0.8-4.8 Absolute Monocytes 0.723 K/ul 0.1-1.0 Absolute Neutrophils 4.70 K/ul 2.05-7.63 Alt 35 U/L 21-72 Anion Gap 14 mmol/L 10-20 Ast 27 U/L 17-59 BUN 22 mg/dL High 9-21 BUN/CR Ratio 17.5 Ratio 12-20 Basophil 0.8 % 0-2 Calcium 9.5 mg/dL 8.7-10.5 Carbon Dioxide 25 mmol/L 22-30 Chloride 106 mmol/L 98-107 Creatinine, Serum 1.3 mg/dL 0.8-1.5 Eosinophil 2.6 % 0-4 Glucose 95 mg/dL 75-110 Hematocrit 50.7 % 37.0-51.0 Hemoglobin 16.8 GM/dl High 12.0-16.0 Lymphocytes 25.3 % 20-44 MCH 30.5 pg 26.0-32.0 MCHC 33.1 g/dL 31.0-36.0 MCV 92 FL 80-97 Monocytes 9.5 % 2-10.0 Neutrophils 61.8 % 50-70 Platelet Count 149 K/ul 140-440 Potassium 4.3 mmol/L 3.6-5.0 RBC 5.50 M/ul 4.2-6.3 RDW 12.3 % 11.5-14.5 Sodium 140 mmol/L 137-145 WBC 7.6 K/ul 4.1-10.9 Lipid Panel 03/12/2012 N2N/[facility]D Import Chol/HDL Ratio 2.5 73 Cholesterol 165 mg/dL 50-199 HDL Cholesterol 65 mg/dL 40-67 LDL 48 mg/dL 20-70 Triglycerides 261 mg/dL High 30-150 VLDL Cholesterol 52 mg/dL Laboratory test finding 03/12/2012 N2N/CCD Import Uric Acid 6.1 mg/dL 2.1-7.4 74 Vitamin D,25-Hydroxy 23.5 ng/mL Low 30.0-100.0 75 Laboratory test 09/12/2011 N2N/CCD Import Absolute 0.063 K/ul 0.0-0.3 finding Basophils Absolute Eosinophils 0.230 K/ul 0.0-0.5 Absolute Lymphocytes [...] 140 mmol/L 137-145 Troponin-I 0.12 ng/mL 0.00-0.50 76 Uric Acid 8.3 mg/dL High 2.1-7.4 WBC 7.3 K/ul 4.1-10.9 Lipid Panel 09/12/2011 N2N/CCD Import Chol/HDL Ratio 4.2 77 Cholesterol 268 mg/dL High 50-199 HDL Cholesterol 63 mg/dL 40-67 LDL 160 mg/dL High 20-129 Triglycerides 224 mg/dL High 30-150 VLDL Cholesterol 45 mg/dL Laboratory test 06/24/2011 N2N/CCD Import Polyp Colon See Note 78 finding And/Or Rectum Laboratory test 06/13/2011 N2N/CCD Import Absolute 0.080 K/ul 0.0-0.3 finding Basophils Absolute Eosinophils 0.309 K/ul 0.0-0.5 Absolute Lymphocytes [...] 139 mmol/L 137-145 WBC 6.9 K/ul 4.1-10.9 Lipid Panel 06/13/2011 N2N/CCD Import Chol/HDL Ratio 3.8 79 Cholesterol 250 mg/dL High 50-199 HDL Cholesterol 65 mg/dL 40-67 LDL 146 mg/dL High 20-129 Triglycerides 194 mg/dL High 30-150 VLDL Cholesterol 39 mg/dL Laboratory test 06/13/2011 N2N/CCD Import Uric Acid 6.5 mg/dL 2.1-7.4 finding Testosterone,Free/Wea 11/05/2010 N2N/CCD Import Testosterone,% 13.2 % 9.0-46.0 80 kly Bound Free/Weakly BND Testosterone,Free+Weakly Bound 45.1 ng/dL 40.0-250.0 81 Testosterone,Serum 342 ng/dL 193-740 Lipid Panel 11/05/2010 N2N/CCD Import Chol/HDL Ratio 3.4 82 Cholesterol 223 mg/dL High 50-199 HDL Cholesterol 64 mg/dL 40-67 LDL 143 mg/dL High 20-129 Triglycerides 80 mg/dL 30-150 VLDL Cholesterol 16 mg/dL Laboratory test 11/05/2010 N2N/CCD Import Absolute 0.070 K/ul 0.0-0.3 finding Basophils Absolute Eosinophils 0.621 K/ul High 0.0-0.5 Absolute Lymphocytes 1.98 K/ul 0.8-4.8 Absolute Monocytes 0.549 K/ul 0.1-1.0 Absolute Neutrophils 2.87 K/ul 2.05-7.63 Alt 39 U/L 21-72 Anion Gap 13 mmol/L 10-20 Ast 28 U/L 17-59 BUN 22 mg/dL High 9-21 BUN/CR Ratio 20.4 Ratio High 12-20 Basophil 1.1 % 0-2 Calcium 8.9 mg/dL 8.7-10.5 Carbon Dioxide 28 mmol/L 22-30 Chloride 106 mmol/L 98-107 Creatinine, Serum 1.1 mg/dL 0.8-1.5 Eosinophil 10.2 % High 0-4 Glucose 89 mg/dL 75-110 Hematocrit 50.8 % 37.0-51.0 Hemoglobin 16.4 GM/dl High 12.0-16.0 Lymphocytes 32.5 % 20-44 MCH 29.8 pg 26.0-32.0 MCHC 32.3 g/dL 31.0-36.0 MCV 92 FL 80-97 Monocytes 9.0 % 2-10.0 Neutrophils 47.1 % Low 50-70 PSA 1.94 ng/mL 0.00-4.00 Platelet Count 187 K/ul 140-440 Potassium 4.8 mmol/L 3.6-5.0 RBC 5.50 M/ul 4.2-6.3 RDW 12.6 % 11.5-14.5 Sodium 142 mmol/L 137-145 TSH 0.884 uIU/ml 0.50-6.00 Uric Acid 6.8 mg/dL 2.1-7.4 83 Vitamin D,25-Hydroxy 25.5 ng/mL Low 32.0-100.0 84 WBC 6.1 K/ul 4.1-10.9 Testosterone,Free/Weakly 05/31/2010 N2N/CCD Import Testosterone,%Free/ Weakly 16.0 9.0-46.0 Bound BND % Testosterone,Free+Weakly Bound 63.5 ng/dL 40.0-250.0 85 Testosterone,Serum 397 ng/dL 193-740 86 Lipid Panel 05/31/2010 N2N/CCD Import Chol/HDL Ratio 3.1 87 Cholesterol 205 mg/dL High 50-199 HDL Cholesterol 66 mg/dL 40-67 LDL 107 mg/dL 20-129 Triglycerides 159 mg/dL High 30-150 VLDL Cholesterol 32 mg/dL Laboratory test finding 05/31/2010 N2N/CCD Import Alt 32 U/L 21-72 Anion Gap 8 mmol/L Low 10-20 Ast 25 U/L 17-59 BUN 23 mg/dL High 9-21 BUN/CR Ratio 19.6 Ratio 12-20 Calcium 9.7 mg/dL 8.7-10.5 Carbon Dioxide 29 mmol/L 22-30 Chloride 105 mmol/L 98-107 Creatinine, Serum 1.2 mg/dL 0.8-1.5 Glucose 80 mg/dL 75-110 Potassium 4.1 mmol/L 3.6-5.0 Sodium 138 mmol/L 137-145 Uric Acid 6.6 mg/dL 2.1-7.4 88 Laboratory test finding 02/26/2010 N2N/CCD Import Free T4 0.91 ng/dL 0.71-1.85 89 Thyroid Stim Hormone 0.80 uIU/mL 0.49-4.67 90 LDL Cholesterol 10/06/2009 N2N/CCD Import Cholesterol 225 mg/dL High 120- 200 Profile HDL Cholesterol 58 mg/dL 40-96 LDL-Cholesterol 149 mg/dL High 62-129 Triglycerides 88 mg/dL 0-150 Laboratory test finding 10/06/2009 N2N/[facility] Import Anion Gap 10 mEq/L 8- 16 Anisocytosis 0-1+ Atypical Lymph% 3 % 0-7 BUN 17 mg/dL 5-23 BUN/Creat 15.4 Band% 2 % 0-8 CBS W/Automated Diff See Note 91 Calcium 8.6 mg/dL 8.5-10.1 Carbon Dioxide 29 mEq/L 21-32 Chloride 105 mEq/L 98-107 Creatinine 1.1 mg/dL 0.5-1.4 Eosinophil% 1 % 0-5 Glom Filtration Rate, Estimate >60 mL/min >60 Glucose 84 mg/dL 76-115 Hematocrit 46.4 % 38.0-48.0 Hemoglobin 15.8 gm/dL 12.8-17.0 If >60 mL/min >60 92 Lymph% 27 % 17-56 Mean Cell Volume 90.6 fl 80.0-96.0 Mean Corpuscular HGB 30.9 pg 27.0-33.0 Mean Corpuscular HGB Conc 34.1 g/dL 31.7-36.0 Mean Platelet Volume 11.0 fL High 6.6-10.6 Monocyte% 6 % 0-10 Neutrophils% 61 % 33-73 Platelet Count 173 K/uL 150-400 Platelet Estimate Normal Potassium 3.9 mEq/L 3.5-5.1 Prostate Specific Antigen 1.8 ng/mL 0-4.0 93 Red Blood Count 5.12 M/uL 4.20-5.80 Red Cell Distri Width %CV 13.8 % 11.6-15.8 SGPT/Alt 44 U/L 30-65 Sgot/Ast 27 U/L 16-40 Sodium 140 mEq/L 136-145 Total Cells Counted 100 #CELLS Uric Acid 6.8 mg/dL 2.1-7.4 Vitamin D,1,25 Dihydroxy See Note 94 Vitamin D,25-Hydroxy 22.8 ng/mL Low 32.0-100.0 95 White Blood Count 6.0 K/uL 3.4-10.5 1 M10.9 N18.3 N40.0 E78.2 2 Note: Persistent reduction for 3 months [...] Source: National Cholesterol Education Program (NCEP) 7 FREEZING COUGH DIFF BREATHING 8 Please Note: A POSITIVE result for influenza A and/or B antigen does not rule out a co-infection with other pathogens or identify any specific influenza A virus subtype. A NEGATIVE result for influenza A and/or B antigen does not preclude influenza virus infection and should not be the sole basis for treatment or other management decisions, since the antigen present in the specimen may be below the detection limit of the test. A NEGATIVE result is PRESUMPTIVE and it is recommended these results be confirmed by virus culture or an FDA-cleared influenza A and B molecular assay. Method: [facility] Chromatographic immunoassay 9 NO GROWTH: FINAL REPORT 10 NO GROWTH: FINAL REPORT 11 Reference Guidelines*: Desirable: ........... < 200 mg/dL Borderline High: ..... 200-239 mg/dL High: ................ >=240 mg/dL * The National Cholesterol Education Program (NCEP) 12 Reference Guidelines*: Normal: ............. < 150 mg/dL Borderline High: .... 150-199 mg/dL High: ............... 200-499 mg/dL Very High: .......... > 500 mg/dL * Source: National Cholesterol Education Program (NCEP) 13 Reference Guidelines*: Low HDL: ..... < 40 mg/dL Normal: ..... 40-60 mg/dL Desirable: ... > 60 mg/dL *The National Cholesterol Education Program(NCEP) 14 Reference Guidelines*: Optimal:........... <100 mg/dL Near Optimal....... 100-129 mg/dL Borderline High.... 130-159 mg/dL High............... 160-189 mg/dL Very High.......... >=190 mg/dL * Source: National Cholesterol Education Program (NCEP) 15 Note: Persistent reduction for 3 months or more in an eGFR <60 mL/min/1.73 m2 defines CKD. Patients with eGFR values >/=60 mL/min/1.73 m2 may also have CKD if evidence of persistent proteinuria is present. The original MDRD equation for estimated GFR is not valid for patients less than 18 years of age. Additional information may be found at [email or web address]. 16 Z12.5,E78.2,N18.3 17 THIS ASSAY IS NOT INTENDED A CANCER SCREENING TEST The concentration of PSA in a given specimen, determined with assays from different manufacturers, can vary due to differences in assay methods and reagent specificity. Values obtained from different assay methods cannot be used interchangeably. Method: [employer] Chemiluminescent immunoassay. 18 Reference Guidelines*: Desirable: ........... < 200 mg/dL Borderline High: ..... 200-239 mg/dL High: ................ >=240 mg/dL * The National Cholesterol Education Program (NCEP) 19 Reference Guidelines*: Normal: ............. < 150 mg/dL Borderline High: .... 150-199 mg/dL High: ............... 200-499 mg/dL Very High: .......... > 500 mg/dL * Source: National Cholesterol Education Program (NCEP) 20 Reference Guidelines*: Low HDL: ..... < 40 mg/dL Normal: ..... 40-60 mg/dL Desirable: ... > 60 mg/dL *The National Cholesterol Education Program(NCEP) 21 Reference Guidelines*: Optimal:........... <100 mg/dL Near Optimal....... 100-129 mg/dL Borderline High.... 130-159 mg/dL High............... 160-189 mg/dL Very High.......... >=190 mg/dL * Source: National Cholesterol Education Program (NCEP) 22 Note: Persistent reduction for 3 months or more in an eGFR <60 mL/min/1.73 m2 defines CKD. Patients with eGFR values >/=60 mL/min/1.73 m2 may also have CKD if evidence of persistent proteinuria is present. The original MDRD equation for estimated GFR is not valid for patients less than 18 years of age. Additional information may be found at [email or web address]. 23 L03.115,I10 24 Note: Persistent reduction for 3 months or more in an eGFR <60 mL/min/1.73 m2 defines CKD. Patients with eGFR values >/=60 mL/min/1.73 m2 may also have CKD if evidence of persistent proteinuria is present. The original MDRD equation for estimated GFR is not valid for patients less than 18 years of age. Additional information may be found at [email or web address]. 25 ACUTE ARTHRITIS R ANKLE 26 Comments to public information director: PER PHARMACY DOSING 27 Note: Persistent reduction for 3 months or more in an eGFR <60 mL/min/1.73 m2 defines CKD. Patients with eGFR values >/=60 mL/min/1.73 m2 may also have CKD if evidence of persistent proteinuria is present. The original MDRD equation for estimated GFR is not valid for patients less than 18 years of age. Additional information may be found at [email or web address]. 28 Note: Persistent reduction for 3 months or more in an eGFR <60 mL/min/1.73 m2 defines CKD. Patients with eGFR values >/=60 mL/min/1.73 m2 may also have CKD if evidence of persistent proteinuria is present. The original MDRD equation for estimated GFR is not valid for patients less than 18 years of age. Additional information may be found at [email or web address]. 29 Instrument flagged sample for slide review. Less than 10% Bands seen, no other immature WBC's seen. RBC morphology essentially normal. Platelet estimate=NORMAL, LARGE PLATELETS NOTED 30 NO ORGANISMS SEEN 31 NO GROWTH: FINAL REPORT 32 M10.9,LO3.115,R60.9 33 Note: Persistent reduction for 3 months or more in an eGFR <60 mL/min/1.73 m2 defines CKD. Patients with eGFR values >/=60 mL/min/1.73 m2 may also have CKD if evidence of persistent proteinuria is present. The original MDRD equation for estimated GFR is not valid for patients less than 18 years of age. Additional information may be found at www.kdoqi.org. 34 I25.10 E78.2 M10.00 35 Note: Persistent reduction for 3 months or more in an eGFR <60 mL/min/1.73 m2 defines CKD. Patients with eGFR values >/=60 mL/min/1.73 m2 may also have CKD if evidence of persistent proteinuria is present. The original MDRD equation for estimated GFR is not valid for patients less than 18 years of age. Additional information may be found at www.kdoqi.org. 36 Reference Guidelines*: Desirable: ........... < 200 mg/dL Borderline High: ..... 200-239 mg/dL High: ................ >=240 mg/dL * The National Cholesterol Education Program (NCEP) 37 Reference Guidelines*: Normal: ............. < 150 mg/dL Borderline High: .... 150-199 mg/dL High: ............... 200-499 mg/dL Very High: .......... > 500 mg/dL * Source: National Cholesterol Education Program (NCEP) 38 Reference Guidelines*: Low HDL: ..... < 40 mg/dL Normal: ..... 40-60 mg/dL Desirable: ... > 60 mg/dL *The National Cholesterol Education Program(NCEP) 39 Reference Guidelines*: Optimal:........... <100 mg/dL Near Optimal....... 100-129 mg/dL Borderline High.... 130-159 mg/dL High............... 160-189 mg/dL Very High.......... >=190 mg/dL * Source: National Cholesterol Education Program (NCEP) 40 Updated reference range on new analyzer 41 Updated reference range on new analyzer 42 Concerning GFR Guidelines: Normal function or mild [...] drugs that are excreted by the kidneys. 43 Concerning GFR Guidelines for Americans: Normal function or mild renal disease, if clinically at risk: >/=60 mL/min Moderately decreased: 30-59 Severely decreased: 15-29 Renal failure: <15 44 Updated reference range on new analyzer 45 Fastin hours 46 Beginning 08/07/06 PSA values assayed at [facility] uses chemiluminescence methodology manufactured by [employer] for use on the DXI analyzer. Values obtained with different assay methods or kits can not be used interchangeably. Serum PSA measurement is not an absolute test for malignancy. The PSA value should be used in conjunction with information available from clinical evaluation and other diagnostic procedures. 47 Updated reference range on new analyzer 48 Updated reference range on new analyzer 49 Concerning GFR Guidelines: Normal function or mild [...] drugs that are excreted by the kidneys. 50 Concerning GFR Guidelines for Americans: Normal function or mild renal disease, if clinically at risk: >/=60 mL/min Moderately decreased: 30-59 Severely decreased: 15-29 Renal failure: <15 51 Updated reference range on new analyzer 52 ? HEART ATTACK 53 Note: Persistent reduction for 3 months or more in an eGFR <60 mL/min/1.73 m2 defines CKD. Patients with eGFR values >/=60 mL/min/1.73 m2 may also have CKD if evidence of persistent proteinuria is present. The original MDRD equation for estimated GFR is not valid for patients less than 18 years of age. Additional information may be found at www.kdoqi.org. 54 0.0 - 0.045 ng/mL: Normal 0.046 - 0.5 ng/mL: Suggestive 0.6 - 1.5 ng/mL: Consistent 55 Beginning 08/07/06 PSA values assayed at [facility] uses chemiluminescence methodology manufactured by [employer] for use on the DXI analyzer. Values obtained with different assay methods or kits can not be used interchangeably. Serum PSA measurement is not an absolute test for malignancy. The PSA value should be used in conjunction with information available from clinical evaluation and other diagnostic procedures. 56 Concerning GFR Guidelines: Normal function or mild [...] drugs that are excreted by the kidneys. 57 Concerning GFR Guidelines for Americans: Normal function or mild renal disease, if clinically at risk: >/=60 mL/min Moderately decreased: 30-59 Severely decreased: 15-29 Renal failure: <15 58 Per NCEP ATP III Guidelines: Results lower than 40 mg/dL are suggestive of increased risk for coronary artery disease. Results > or=to 60 mg/dL are considered a negative risk factor. 59 Per NCEP ATP III Guidelines: Normal Population <130 Patients with medical conditions: CHD/DM Optimal: <100 Borderline high: 130-159 High: 160-189 Very high: >189 60 SCHEDULE IN 6 WEEKS 61 Concerning GFR Guidelines for Americans: Normal function or mild renal disease, if clinically at risk: >/=60 mL/min Moderately decreased: 30-59 Severely decreased: 15-29 Renal failure: <15 62 Concerning GFR Guidelines: Normal function or mild [...] drugs that are excreted by the kidneys. 63 Beginning 08/07/06 PSA values assayed at [facility] uses an EIA methodology manufactured by [employer] for use on the DXI analyzer. Values obtained with different assay methods or kits can not be used interchangeably. Serum PSA measurement is not an absolute test for malignancy. The PSA value should be used in conjunction with information available from clinical evaluation and other diagnostic procedures. 64 Concerning GFR Guidelines: Normal function or mild [...] drugs that are excreted by the kidneys. 65 Concerning GFR Guidelines for Americans: Normal function or mild renal disease, if clinically at risk: >/=60 mL/min Moderately decreased: 30-59 Severely decreased: 15-29 Renal failure: <15 66 Per NCEP ATP III Guidelines: Results lower than 40 mg/dL are suggestive of increased risk for coronary artery disease. Results > or=to 60 mg/dL are considered a negative risk factor. 67 Per NCEP ATP III Guidelines: Normal Population <130 Patients with medical conditions: CHD/DM Optimal: <100 Borderline high: 130-159 High: 160-189 Very high: >189 68 Note: Persistent reduction for 3 months or more in an eGFR <60 mL/min/1.73 m2 defines CKD. Patients with eGFR values >/=60 mL/min/1.73 m2 may also have CKD if evidence of persistent proteinuria is present. The original MDRD equation for estimated GFR is not valid for patients less than 18 years of age. Additional information may be found at www.kdoqi.org. 69 FAXED PER REQUEST - @ 4172 07/08/13,(LAB.RAP) FAX COPY TO Marcos SORIANO [phone] 70 For -[place] patients multiply result by 1.180 71 Performed at: RN - [facility] [address] [id number] Completions Manager: Leah Gonzalez MD, Phone: [phone] RAFAEL Soriano Fax 73 Normal Range: Male: <4.98 Female: <4.45 74 FAX OT Glenna SORIANO @ [phone] FAXED URIC PER REQUEST - @ 9487 03/12/12,( LAB.KLS) 75 Vitamin D deficiency has been defined by the [place] of [employer] and an Endocrine Society practice guideline as a level of serum 25-OH vitamin D less than 20 ng/mL (1,2). The Endocrine Society went on to further define vitamin D insufficiency as a level between 21 and 29 ng/mL (2). 1. IOM ([place] of Medicine). 2010. Dietary reference intakes for calcium and D. [place]: The National Academies Press. 2. Yasmeen MF, [place], Devika TAMAYO, et al. Evaluation, treatment, and prevention of vitamin D deficiency: an Endocrine Society clinical practice guideline. JCEM. 2010; 96(7):1911-30. Performed at: - [facility] [address] [id number] Completions Manager: Leah Gonzalez MD, Phone: [phone] 76 0 - 0.5 ng/mL: No evidence of myocardial injury 0.6 - 1.4 ng/mL: Mild elevation, suggesting possible myocardial injury > 1.4 ng/mL: Consistent with myocardial injury 77 Normal Range: Male: <4.98 Female: <4.45 78 OPERATION/PROCEDURE Colon. DIAGNOSIS: "CECUM, TRANSVERSE COLON \\E&E\\ RECTUM , POLYPECTOMIES": ADENOMAS, TUBULAR TYPE. TERESA/alec 1122 GROSS "CECAL, TRANSVERSE \\E&E\\ RECTAL POLYPS". [...] Screening colon REVIEW CODE CODE: I ----- Signed IAIN EDOUARD MD 06/27/11 1235 ----- 79 Normal Range: Male: <4.98 Female: <4.45 80 FASTING 81 Performed at: [address] [id number] Completions Manager: Genaro Bates MD, Phone: [phone] Performed at: [address] [id number] Completions Manager: Iain Sloan MD, Phone: [phone] 82 Normal Range: Male: <4.98 Female: <4.45 83 QUERY: @[facility] Pat ID: QUERY: @[facility] Req #: 84 Recent studies consider the lower limit of 32.0 ng/mL to be a threshold for optimal health. Aguilar AQUINO. J Nutr. 2005 Jul;135(2):317-22. Performed at: [address] [id number] Completions Manager: Genaro Bates MD, Phone: [phone] 85 Performed at: [address] [id number] Completions Manager: Genaro Bates MD, Phone: [phone] Performed at: - [facility] [address] [id number] Completions Manager: Iain Sloan MD, Phone: [phone] Please note reference interval change 87 Normal Range: Male: <4.98 Female: <4.45 88 FASTING QUERY: @[facility] Pat ID: QUERY: @[facility] Req #: 89 FASTING QUERY: @[facility] Pat ID: QUERY: @[facility] Req #: 90 FASTING QUERY: @[facility] Pat ID: QUERY: @[facility] Req #: 91 10/06/09 LAB.LAS MAN DIFF NEEDED 92 Note: Persistent reduction for 3 months or more in an eGFR <60 mL/min/1.73 m2 defines CKD. Patients with eGFR values >/=60 mL/min/1.73 m2 may also have CKD if evidence of persistent proteinuria is present. The original MDRD equation for estimated GFR is not valid for patients less than 18 years of age. Additional information may be found at www.kdoqi.org. 93 THIS ASSAY IS NOT INTENDED A CANCER SCREENING TEST. *Total_PSA methodology Axsym-MEIA, standardized to WHO 1st IS for PSA 96/670 The concentration of PSA in a given specimen, determined with assays from different manufacturers, can vary due to differences in assay methods and reagent specificity. Values obtained from different assay methods cannot be used interchangeably. 94 10/06/09 LAB.LJS SHOULD HAVE BEEN A VD25 95 Recent studies consider the lower limit of 32.0 ng/mL to be a threshold for optimal health. Aguilar AQUINO. J Nutr. 2004;135(2):317-22. Performed at: - [facility] [id number] Completions Manager: Genaro Bates MD Procedures Date Code Description Status 08/13/2018 93649 PFT With Bronchodilator Completed 08/13/2018 73888 Measure Blood Oxygen Level Single Determination Completed 08/13/2018 54602 Spirometry /PFT W/O Bronchodialator Completed 07/19/2018 62579 Measure Blood Oxygen Level Single Determination Completed 07/10/2018 17592 Measure Blood Oxygen Level Single Determination Completed 06/29/2018 76500 Measure Blood Oxygen Level Single Determination Completed 08/14/2017 65269 Measure Blood Oxygen Level Single Determination Completed 04/27/2017 44111 X-Ray Hand Three Views Completed 12/02/2016 45275969 Colonoscopy Completed 07/27/2015 20700 Inj Of Tendon (Single), Origin/Insertion Completed 05/12/2015 79369 X-Ray Foot Complete Completed 04/14/2014 79997 Measure Blood Oxygen Level Single Determination Completed 12/09/2013 26938 Measure Blood Oxygen Level Single Determination Completed 12/09/2013 13359 Spirometry /PFT W/O Bronchodialator Completed 09/12/2011 03277 Electrocardiogram Complete Completed 06/24/2011 60454 Colonoscopy Flexible Diagnostic Completed 02/15/2011 12501 Measure Blood Oxygen Level Single Determination Completed 11/05/2010 16284 Measure Blood Oxygen Level Single Determination Completed 11/05/2010 45981 Spirometry /PFT W/O Bronchodialator Completed 11/05/2010 38245 Electrocardiogram Complete Completed 09/27/2010 89147 Measure Blood Oxygen Level Single Determination Completed 10/05/2009 74740 Electrocardiogram Complete Completed Encounters Type Date Location Provider Dx Diagnosis Office Visit 08/13/2018 [facility] Mahnaz Manzanares MD Z00.00 Encntr for general 10:00a adult medical exam w/o abnormal findings Z13.31 Encounter for screening for depression R05 Cough Office Visit 07/19/2018 4:15p [facility] Mahnaz Manzanares MD R05 Cough I10 Essential (primary) hypertension Office Visit 07/10/2018 11:00a [facility] Mahnaz Manzanares MD R06.2 Wheezing Office Visit 06/29/2018 11:00a [facility] Mahnaz Manzanares MD R05 Cough I10 Essential (primary) hypertension Z68.25 Body mass index (BMI) 25.0-25.9, adult Office Visit 05/07/2018 9:45a [facility] Mahnaz Manzanares MD N40.0 Benign prostatic hyperplasia without lower urinry tract symp M10.9 Gout, unspecified E78.2 Mixed hyperlipidemia I10 Essential (primary) hypertension I25.10 Athscl heart disease of [place] coronary artery w/o ang pctrs N18.3 Chronic kidney disease, stage 3 (moderate) Office Visit 01/29/2018 9:15a [facility] Mahnaz Manzanares MD N40.0 Benign prostatic hyperplasia without lower urinry tract symp M10.9 Gout, unspecified E78.2 Mixed hyperlipidemia I10 Essential (primary) hypertension I25.10 Athscl heart disease of [place] coronary artery w/o ang pctrs N18.3 Chronic kidney disease, stage 3 (moderate) K21.9 Gastro-esophageal reflux disease without esophagitis Office Visit 10/23/2017 1:45p [facility] Mahnaz Manzanares MD Z23 Encounter for immunization Z00.00 Encntr for general adult medical exam w/o abnormal findings N40.0 Benign prostatic hyperplasia without lower urinry tract symp M10.9 Gout, unspecified E78.2 Mixed hyperlipidemia I10 Essential (primary) hypertension I25.10 Athscl heart disease of [place] coronary artery w/o ang pctrs Z13.89 Encounter for screening for other disorder N18.3 Chronic kidney disease, stage 3 (moderate) Z12.5 Encounter for screening for malignant neoplasm of prostate Office Visit 09/25/2017 3:30p [facility] Antonieta Miguel, L03.115 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 Office Visit 09/04/2017 3:15p [facility] Mahnaz Manzanares MD M10.9 Gout, unspecified L03.115 Cellulitis of RIGHT lower limb R60.9 Edema, unspecified Office Visit 08/14/2017 8:45a [facility] Mahnaz Manzanares MD R05 Cough I10 Essential (primary) hypertension Office Visit 04/27/2017 10:00a [facility] Mahnaz Manzanares MD M25.541 Pain in joints of RIGHT hand M10.9 Gout, unspecified Office Visit 03/27/2017 8:45a [facility] Vik Grewal, M77.02 Medial epicondylitis, DO LEFT elbow Office Visit 09/26/2016 2:45p [facility] Vik Grewal M10.9 Gout, unspecified DO Office Visit 09/05/2016 9:00a [facility] Vik Grewal Z00.00 Encntr for general adult DO medical exam w/o abnormal findings I10 Essential (primary) hypertension E78.2 Mixed hyperlipidemia I25.10 Athscl heart disease of [place] coronary artery w/o ang pctrs M10.9 Gout, unspecified Z68.24 Body mass index (BMI) 24.0-24.9, adult Z23 Encounter for immunization Z86.010 Personal history of colonic polyps R53.83 Other fatigue Z12.5 Encounter for screening for malignant neoplasm of prostate I20.9 Angina pectoris, unspecified Office Visit 05/02/2016 9:30a [facility] Ashu Miguelia, M10.9 Gout, unspecified 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12 Lateral epicondylitis, DO LEFT elbow Office Visit 06/15/2015 9:30a [facility] Vik Grewal, M22.41 Chondromalacia patellae, 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 knee M76.51 Patellar tendinitis, RIGHT knee Office Visit 05/12/2015 3:00p [facility] Vik Grewal DO M10.9 Gout, unspecified M15.0 Primary generalized (osteo)arthritis Office Visit 03/31/2015 2:30p Vik Solis DO M10.9 Gout, unspecified M15.0 Primary generalized (osteo)arthritis Office Visit 03/09/2015 2:30p [facility] Antonieta Miguel, M67.441 Ganglion , RIGHT hand 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 Office Visit 09/22/2014 9:30a [facility] Vik Grewal DO 681.11 Onychia & Paronychia Toe Office Visit 08/25/2014 2:00p [facility] Vik Grewal DO V70.0 Exam (Adult ) General Medical Routine AT Health Care Facility V76.44 Screening For Malig Jimenez Prostate 401.1 Hypertension Benign 272.2 Hyperlipidemia Mixed 274.9 Gout Unspec 414.00 Coronary Atherosclerosis Unspec Type Vessel Morongo/Graft Plan of Treatment Future Appointment(s):04/15/2019 8:45 am - Mahnaz Manzanares MD at [facility] - Mahnaz Manzanares MDZ00.00 Encounter for general adult medical examination without abnoComments:Annual medicare wellness done. We updated list of consulting doctors. We updated medication list and see medicare wellness exam form. Recommended to have a flu vaccine at your pharmacy after .Follow up:Follow up in six months, earlier if any problems arise.M10.9 Gout , unspecifiedNew Labs:Uric Acid, Scheduled: 04/08/19Comments:he has stopped medication for this and is making dietary changes - has no symptoms - advised to callfor gout pain.Follow up:The patient will continue on low-purine diet. 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 Continue current treatment.E78.2 Mixed hyperlipidemiaNew Labs:Liver Function Tests, Scheduled: 04/08/19Comments: treated by Dr Rebollar up:Discussed with the patient regarding the importance of statin medications for cardiovascular risk.E87.6 HypokalemiaFollow up:The patient was encouraged to consume bananas for hypokalemia.R10.9 Unspecified abdominal painFollow up:No intervention at this time. The patient was encouraged to increase fluid intake.Z13.31 Encounter for screening for depressionComments:screening for depression is negative - PHQ2= 0Z68.25 Body mass index (BMI) 25.0-25.9, adult
--- OUTSIDE RECORDS SUMMARY | 2018-10-20 09:42 | XMS REPORT | Continuity of Care Document ---
:1940 External Reference #:[id number] Author Name V[facility] Care Team Providers Name Role Phone Mahnaz Manzanares MD Primary Care Physician Unavailable Payers Date Identification Numbers Payment Provider Subscriber Effective: 2007 Policy Number: [id number] Medicare [facility] Antonio Zavala Expires: 2014 Group Name: Medicare [address] [address] PayID: [id number] [place] [address] Effective: 2014 Policy Number: [id number] Medicare Blue Ppo Antonio Zavala PayID: [id number] [address] [address] [place] [address] Advance Directives Description No Information Available Problems Active Problems Provider Date Cough Jimy Elise M.D. Onset: 09/08/2014 Chronic rhinitis Jimy Elise M.D. Onset: 09/08/2014 Family History Date Family Member(s) Observation Comments General Heart Disease General Hypertension General Diabetes Type I General NE General Diabetes Type II General Kidney Disease Father NE Father Heart Disease Mother Diabetes Type II [...] Patient has never smoked Smoking Status Reviewed: 09/27/18 Patient has never smoked Exercise Type/Frequency Exercises [...] Digiovanna, - Monohydrate twice a day Antonieta, TREE CHIPPER 09/26/2018 100mg Capsules Pravastatin Sodium 1 tablet [...] Tablets Metoprolol Succinate 1 po qd 90tabs Vik Grewal, - ER DO 09/08/2014 25mg Tablets ER 24HR Amoxicillin 1 by mouth twice 20tabs Unknown - 875mg a day 02/20/2012 Tablets Allopurinol 1 po qd 30tabs Unknown - 100mg 09/08/2014 Tablets Verapamil HCL ER 1 po qd 30caps Unknown - 02/20/2012 300mg Caps ER 24HR Immunizations CPT Code Status Date Vaccine Lot # 14884 Given 09/05/2016 Pneumococcal Conjugate Vaccine 13 Valent For Intramuscular Use 73954 Given 01/27/2009 Hepatitis B Andrew Adoles For Intramuscular Use 24329 Given 01/27/2009 Hepatitis A Vaccine Adult Dosage 85989 Given 09/01/2008 Hepatitis B Andrew Adoles For Intramuscular Use 66133 Given 11/26/2007 Pneumonia Vaccine 17023 Given 11/26/2007 Tetanus And Diptheria (Td) For Adult Use Preservative Free 74434 Given 12/06/2004 Tetanus And Diptheria (Td) For Adult Use Preservative Free Vital Signs Date Vital Result Comment 09/27/2018 10:15am Height 61.0 inches 5'1" Weight [...] Information Available Procedures Date Code Description Status 09/08/2014 64520 Fibroptic Laryngoscopy Completed 04/05/2011 32699 Nasal Endoscopy, Diagnostic Completed 07/21/2008 97955 Screening Vision Test Completed 07/21/2008 20931 Pure Tone-Air Condition Only Completed Encounters Type Date Location Provider Dx Diagnosis Office Visit 07/04/2018 [facility] Glenna Sánchez76.62 Achilles 9:30a [facility] carnes left [place] leg Office Visit 04/09/2018 [facility] Ebenezer Romo.62 Achilles 10:15a [facility] MD carnes, left [place] leg Office Visit 10/02/2017 [facility] Edilberto Alfaro M10.9 Gout, unspecified 3:20p Infectious [facility] Nunes Diseases Office Visit 09/08/2014 [facility] 472.0 Rhinitis Chronic 2:30p [facility] Gian Elise M.D. 786.2 Cough Office Visit 02/20/2012 9:15a [facility] 473.0 Sinusitis C[facility]. AT [facility] Elise Chronic [place] Maxillary Office Visit 04/19/2011 3:30p [facility] 473.0 Sinusitis C[facility]. AT [facility] Chronic [place] Maxillary 473.1 Sinusitis Chronic Frontal Office Visit 04/05/2011 1:30p [facility] 473.0 Sinusitis C.M.A. AT Ye[facility] Chronic [place] Maxillary 473.1 Sinusitis Chronic Frontal Plan of Treatment 09/27/2018 - Genaro Mock M.D.M76.62 Achilles tendinitis, left legNew Xrays: MRI Ankle Left W/O, Ordered: 09/27/18Follow up:Follow up: after MRI
[2018-10-20 10:00] VITALS: BP 133/78
--- NOTE | 2018-10-20 10:25 | UC ---
Lower Extremity/Ankle HPI - HPI Summary HPI Summary: 77-year-old male comes in with a chief complaint of left ankle pain. Patient had a torn left Achilles tendon and initially was in a cast and then in a boot. When he was wearing the boot he started getting pain in the left ankle. Reports the pains been gone for several weeks. He stopped using the blue. He felt it was making it worse. He's been taking naproxen without any relief. Any sort of activity weightbearing makes the pain worse. Elevating and resting decreases the pain. The Achilles tendon itself feels better. Denies any calf pain. No fevers or chills feels well otherwise. - History of Current Complaint Chief Complaint: UCLowerExtremity Stated Complaint: LEFT ANKLE CONCERN Time Seen by Provider: 10/20/18 10:14 Pain Intensity: 3 - Allergies/Home Medications Allergies/Adverse Reactions: Allergies Allergy/AdvReac Type Severity Reaction Status Date / Time ceftriaxone [From Rocephin] Allergy Unknown Verified 10/02/18 14:57 Reaction Details msg Allergy Swelling Uncoded 10/02/18 14:57 shellfish Allergy Gout Uncoded 10/02/18 14:57 swelling and pain PMH/Surg Hx/FS Hx/Imm Hx Previously Healthy: Yes - GOUT - Surgical History Surgical History: Yes Surgery Procedure, Year, and Place: right knee, hernia repair - Family History Known Family History: Positive: Cardiac Disease - father of heart disease, Hypertension, Diabetes, Other - father had gout - Social History Alcohol Use: Occasionally Substance Use Type: None Smoking Status (MU): Never Smoked Tobacco - Immunization History Vaccination Up to Date: Yes Review of Systems All Other Systems Reviewed And Are Negative: Yes Constitutional: Positive: Negative Skin: Positive: Negative Eyes: Positive: Negative ENT: Positive: Negative Respiratory: Positive: Negative Cardiovascular: Positive: Negative Gastrointestinal: Positive: Negative Motor: Positive: Negative Neurovascular: Positive: Negative Musculoskeletal: Positive: Other: - SEE HPI Neurological: Positive: Negative Psychological: Positive: Negative Is Patient Immunocompromised?: No Physical Exam Triage Information Reviewed: Yes Appearance: Well-Appearing, No Pain Distress, Well-Nourished Vital Signs: Initial Vital Signs Temp 98.0 F 10/20/18 09:52 Pulse 78 10/20/18 09:52 Resp 16 10/20/18 09:52 BP 133/78 10/20/18 09:52 Pulse Ox 98 10/20/18 09:52 Vital Signs Reviewed: Yes Eye Exam: Normal Eyes: Positive: Conjunctiva Clear Neck: Positive: Supple Respiratory: Positive: No respiratory distress Musculoskeletal: Positive: Other: - Left ankle is swollen and tender to palpation left ankle is swollen and tender to palpation. Toes a full range of motion the foot is nontender to palpation. Achilles tendon is intact. Positive dorsalis pedis pulse normal capillary refill. Calf is nontender to palpation knee has full range of motion. Neurological Exam: Normal Neurological: Positive: Alert, Muscle Tone Normal Psychological Exam: Normal Psychological: Positive: Age Appropriate Behavior Skin Exam: Normal Lower Extremity Course/Dx - Course Course Of Treatment: Patient Name: AZAEL KAMARA Medical Record#: [id number] Ordering Physician: Nomi Gardner MD Acct.#: [id number] : 1940 Age: 77 Sex: M Location: [facility] Exam Date: 10/20/18 1021 ADM Status: REG ER Order Information: ANKLE LEFT 3+VWS Accession Number: [id number] CPT: 01049 INDICATION: Left ankle pain and swelling. TECHNIQUE: 3 views of the left ankle were obtained. FINDINGS: There is diffuse soft tissue swelling. The bones are normal alignment. No fracture or significant focal osseous abnormality is seen. Joint spaces appear maintained. There are large calcaneal spurs. IMPRESSION: SOFT TISSUE SWELLING. <Electronically signed by Guillaume Mayorga MD in OV> 10/20/18 I discussed the x-ray report with the patient. In clinic patient was placed in an Joe wrap and gel splint and neurovascularly intact after placement by nursing. And patient he has crutches at home is given a work on minimal weightbearing. We discussed the possibility of gout. Patient has had gout in the ankle before. At this time he plans on trying colchicine to see if that helps. We will also minimize weightbearing elevated ice it and follow-up with orthopedics. We discussed checking a uric acid level patient reports that it's always size so he declined checking and her uric acid level at this time. - Differential Dx/Diagnosis Provider Diagnosis: Pain and swelling of left ankle Discharge - Sign-Out/Discharge Documenting (check all that apply): Patient Departure All imaging exams completed and their final reports reviewed: Yes - Discharge Plan Condition: Stable Disposition: HOME Patient Education Materials: Swollen Ankle Joint (ED) Referrals: Mahnaz Manzanares MD [Primary Care Provider] - Genaro Mock MD [Medical Doctor] - Additional Instructions: FOLLOW UP WITH ORTHOPEDICS. GET RECHECKED SOONER IF YOUR CONDITION WORSENS OR ANY QUESTIONS OR CONCERNS. - Billing Disposition and Condition Condition: STABLE Disposition: Home
== END 2018-10-20 11:37 | disposition home or self-care (01) ==
LOC: UCCORT 09:10
DX: M25.572 Pain in left ankle and joints of left foot (principal); M25.472 Effusion, left ankle
CPT/HCPCS: 99213; G0463

== ENCOUNTER → 2018-12-11 07:37 | Day surgery (SDC) | payer MEDICARE ==
[~2018-12-11 07:37] MED LIST: Acetaminophen TAB* 325 MG PO PRN; Buffered Lidocaine 1% SYRIN* 1 ML/SYRINGE INTRADERM ONE; Bupivacaine 0.25% SDV PF* 10 ML VIAL INJ ONE; Bupivacaine 0.5%* 50 ML VIAL ONE; Clindamycin 900 MG IVPREMIX(* 900 MG/50 ML SDV IV ONE; Dexamethasone IV* 4 MG/ML 1 ML (4 MG) ONE; DiMENhydriNATE IV* 50 MG/ML VIAL IV PUSH PRN; DiMENhydriNATE IV* 50 MG/ML VIAL ONE; EPHEDrine (Pressors)* 50 MG/ML VIAL ONE; Famotidine IV* 10 MG/ML 2 ML (20 mg) IV ONE; Famotidine IV* 10 MG/ML 2 ML (20 mg) ONE; HYDROmorphone INJ1* 1 MG/ML SYRINGE IV PRN; Ketorolac INJ* 30 MG/ML 1 ML VIAL ONE; Lactated Ringers 1000 ML Bag* 1,000 ML IV SCH; Lidocaine 2% PF * 5 ML VIAL ONE; Midazolam* 1 MG/ML 5 ML VIAL (5 MG) ONE; Naloxone* 0.4 MG/ML 1 ML VIAL IV PRN; Ondansetron INJ* 2 MG/ML VIAL ONE; Propofol* 10 MG/ML 20 ML BTL ONE; Succinylcholine* 20 MG/ML 10 ML VIAL ONE; ceFAZolin 2 GM in NS PREMIX(*) 2 GM/100 ML BAG IVPB ONE; fentaNYL* 50 MCG/ML 2 ML VIAL (100 MCG VIAL) ONE
--- NOTE | 2018-12-11 12:40 | OP ---
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 ANESTHESIOLOGIST: Dr. Vallecillo PREOPERATIVE DIAGNOSIS: Left insertional Achilles tendinopathy, calcaneal exostosis, and gastrocnemius contracture. POSTOPERATIVE DIAGNOSIS: Left insertional Achilles tendinopathy, Achilles tendon tear, calcaneal exostosis, and gastrocnemius contracture. OPERATION: 1. Left Achilles tendon debridement and secondary repair 2. Left calcaneus partial excision/saucerization 3. Left gastrocnemius recession (Levy procedure) ANESTHESIA: GETA IMPLANTS: Arthrex Speedbridge TOURNIQUET TIME: Less than 90 minutes with a well-padded thigh tourniquet at 250mmHg SPECIMENS: none ESTIMATED BLOOD LOSS: minimal COMPLICATIONS: none STATUS: Stable from the operating room to the recovery room and then home. INDICATIONS FOR PROCEDURE: Cornelius has had persistent pain at his insertional Achilles refractory to extensive non-op management. Both operative and non operative treatment alternatives were reviewed. Further, the nature and risks of surgery were reviewed in careful detail in the office as well as in the preoperative holding area. Our discussions regarding the risks of surgery included, but were not limited to, infection, wound problems, nerve injury, neuroma, RSD, persistent symptoms, blood clot, rupture or failure to heal, failure of the surgery, and even the remote chance of catastrophic complication, including loss of limb. DESCRIPTION OF PROCEDURE: The patient was seen in the preoperative holding unit and informed written consent was obtained. The appropriate extremity was marked. The patient was then brought to the operating room and carefully positioned on the operating room table in the prone position. Anesthesia was induced. All bony prominences were padded with great care. A well-padded thigh tourniquet was placed. A chlorhexidine based pre-scrub was performed followed by a chloraprep prep and drape in standard sterile fashion. A surgical safety pause was then conducted in which we confirmed the appropriate patient, extremity, planned procedure, availability of equipment, indication and administration of prophylactic antibiotics, and DVT prophylaxis in the form of a compression boot on the non- surgical extremity. Exsanguination of the extremity was performed and the tourniquet was inflated. I began by utilizing a longitudinal incision overlying the posteromedial aspect of the Achilles. I then carefully dissected down to the tendinous layer, maintaining full-thickness flaps. I exposed the Achilles tendon and removed it from the posterior aspect of the calcaneus. There was extensive degeneration of the tendon, which was sharply excised with a 15 blade scalpel. There was a split longitudinal tear of the tendon which was repaired with 0 Vicryl suture. I then exposed the calcaneal exostoses as well as the posterior-superior calcaneal tuberosity, which was prominent. I then utilized a small oscillating saw to excise the exostosis and prominent aspect of the calcaneal tuberosity, thus performing a saucerization of the calcaneus. I made sure all edges were smooth with a Rongeur. There was significant tension on the tendon after debridement when I reapproximated it to the calcaneus so I decided to move forward with a gastrocnemius recession. I made an approximately 3-cm incision at the posteromedial calf. I carried the dissection through the soft tissue and divided the crural fascia longitudinally. I then exposed the fascia of the gastrocnemius muscle. Great care was taken to protect the sural nerve throughout this procedure. I cleared all adhesions from the posterior aspect of the gastrocnemius fascia and then transected this in its entirety from medially to laterally. I then identified the plantaris tendon, which was also tight medially. This was transected. I then again confirmed that the sural nerve was in continuity. I then used an Arthrex speedbridge to perform a double row repair of the Achilles insertion on to the freshly osteotomized surface of the posterior calcaneus. This provided excellent fixation and compression of the insertional Achilles. The distal wound was then copiously irrigated and meticulously closed in layers utilizing 3-0 Monocryl for the subdermal layer, and 3-0 nylon for the skin. The proximal wound was was irrigated and closed in layers using 3-0 Monocryl and skin meaghan. A sterile dressing was then applied followed by a splint with the ankle in neutral position. The patient was then awakened from anesthesia and transferred to the recovery room in stable condition. There were no complications. All needle and sponge counts were correct at the end of the case. ATTESTATION: I attest I was present and scrubbed and performed the critical portions of the procedure myself. POSTOPERATIVE PLAN: The patient will remain [id number] for an anticipated duration is 4 weeks and follow up in two weeks for likely suture removal and Steri-Strip application.He will be on Xarelto for 4 weeks postoperatively for DVT prophylaxis.
[2018-12-11 14:45] VITALS: BP 123/70
== END | disposition home or self-care (01) ==
LOC: OR 07:37
PROVIDERS: ATTEND Orthopaedic Surgery
DX: M76.62 Achilles tendinitis, left leg (principal); M25.775 Osteophyte, left foot; M62.472 Contracture of muscle, left ankle and foot; E78.5 Hyperlipidemia, unspecified; M10.9 Gout, unspecified; I25.10 Atherosclerotic heart disease of native coronary artery without angina pectoris; N18.3 Chronic kidney disease, stage 3 (moderate); I12.9 Hypertensive chronic kidney disease with stage 1 through stage 4 chronic kidney disease, or unspecified chronic kidney disease; M19.90 Unspecified osteoarthritis, unspecified site
CPT/HCPCS: 76000; C1713; J0330; J0690; J1100; J1240; J1885; J2250; J2405; J2704; J3010; J3490

== ENCOUNTER 2019-09-21 10:53 | Emergency (ER) | payer MEDICARE ==
[2019-09-21 11:24] VITALS: BP 140/76
--- NOTE | 2019-09-21 12:17 | UC ---
Elbow Pain - HPI Summary HPI Summary: 78 yo male with extensive hx of gout presents with red/swollen left elbow x 3 days on probenicid took cholchine no trauma no fever - History of Current Complaint Chief Complaint: UCUpperExtremity Stated Complaint: LT ELBOW PAIN Time Seen by Provider: 09/21/19 11:26 Hx Obtained From: Patient Onset/Duration: Days Severity Initially: Mild Severity Currently: Moderate Pain Intensity: 5 Pain Scale Used: 0-10 Numeric Location Of Pain: Is Diffuse Character: Sharp, Dull, Aching Aggravating Factor(s): Movement Alleviating Factor(s): Nothing Associated Signs And Symptoms: Positive: Swelling, Redness - Allergies/Home Medications Allergies/Adverse Reactions: Allergies Allergy/AdvReac Type Severity Reaction Status Date / Time ceftriaxone [From Rocephin] Allergy Unknown Verified 09/21/19 11:17 Reaction Details monosodium glutamate Allergy Swelling Verified 09/21/19 11:17 shellfish derived AdvReac Gout Verified 09/21/19 11:17 NARCOTICS Allergy Nausea And Uncoded 09/21/19 11:17 Vomiting Home Medications: Home Medications Colchicine [Mitigare] 0.6 - 1.2 mg PO SEE INSTRUCTIONS PRN 12/03/18 [History Confirmed 09/21/19] Ezetimibe 10 mg PO QAM 12/03/18 [History Confirmed 09/21/19] NIFEdipine [Nifedipine ER] 60 mg PO QAM 12/03/18 [History Confirmed 09/21/19] Probenecid 500 mg TAB [Benemid 500 mg TAB] 500 mg PO BID 09/21/19 [History Confirmed 09/21/19] PMH/Surg Hx/FS Hx/Imm Hx Previously Healthy: Yes - gout Cardiovascular History: Cardiac Disease, Hypertension - Surgical History Surgical History: Yes Surgery Procedure, Year, and Place: right knee, hernia repair - Family History Known Family History: Positive: Cardiac Disease - father of heart disease, Hypertension, Diabetes, Other - father had gout - Social History Alcohol Use: Occasionally Substance Use Type: None Smoking Status (MU): Never Smoked Tobacco Have You Smoked in the Last Year: No - Immunization History Vaccination Up to Date: Yes Review of Systems All Other Systems Reviewed And Are Negative: Yes Constitutional: Positive: Negative Skin: Positive: Negative Eyes: Positive: Negative ENT: Positive: Negative Respiratory: Positive: Negative Cardiovascular: Positive: Negative Gastrointestinal: Positive: Negative Genitourinary: Positive: Negative Motor: Positive: Negative Neurovascular: Positive: Negative Musculoskeletal: Positive: Arthralgia, Decreased ROM, Edema Neurological/Mental Status: Positive: Negative Psychological: Positive: Negative Physical Exam Triage Information Reviewed: Yes Appearance: Well-Appearing, No Pain Distress, Well-Nourished Vital Signs: Initial Vital Signs Temp 98.2 F 09/21/19 11:14 Pulse 86 09/21/19 11:14 Resp 16 09/21/19 11:14 BP 140/76 09/21/19 11:14 Pulse Ox 98 09/21/19 11:14 Vital Signs Reviewed: Yes Eyes: Positive: Conjunctiva Clear ENT: Negative: Hearing grossly normal, Nasal congestion, Nasal drainage, Muffled voice, Hoarse voice Neck: Positive: Supple Respiratory: Positive: Lungs clear, Normal breath sounds, No respiratory distress, No accessory muscle use Cardiovascular: Positive: RRR, No Murmur Musculoskeletal: Positive: Other: - left elbow swollen and warm/red , limited ROM Neurological: Positive: Alert Psychological Exam: Normal Skin Exam: Normal Diagnostics - Radiology No standard instances Radiology Interpretation Completed By: Radiologist Summary of Radiographic Findings: left elbow effusion Elbow Pain Course/Dx - Course Course Of Treatment: I informed patient of concern re septic joint vs gouty arthritis and need to nail down a diagnosis D/W Dr. Doherty to ER via POV - Differential Dx/Diagnosis Provider Diagnosis: Effusion of left elbow Discharge ED - Sign-Out/Discharge Documenting (check all that apply): Patient Departure All imaging exams completed and their final reports reviewed: Yes - Discharge Plan Condition: Stable Disposition: HOME-RECOMMEND TO ED Referrals: Param Jiang MD [Primary Care Provider] - Additional Instructions: I spoke to Dr. Doherty They are expecting your at the ER - Billing Disposition and Condition Condition: STABLE Disposition: Home-Recommend to ED
== END 2019-09-21 12:15 | disposition home health service (06) ==
LOC: UCCORT 10:53
DX: M25.422 Effusion, left elbow (principal); M25.522 Pain in left elbow; M10.9 Gout, unspecified; I10 Essential (primary) hypertension; Z79.899 Other long term (current) drug therapy; Z88.8 Allergy status to other drugs, medicaments and biological substances; Z88.1 Allergy status to other antibiotic agents; Z88.5 Allergy status to narcotic agent; Z91.013 Allergy to seafood
CPT/HCPCS: 99212; G0463